=== PATIENT | female | born 1945 | race African-American/Black ===

== ENCOUNTER 2016-08-29 14:23 | Inpatient (IN) | payer OTHER, BC ==
--- NOTE | 2016-08-29 16:38 | PDOC ---
History of Present Illness - General Chief Complaint: Weakness Stated Complaint: PCP: SENT, weakness r/o anemia Time Seen by Provider: 08/29/16 15:59 - History of Present Illness Initial Comments: 08/29/16 16:37 Patient is a 70 year old female with a history of [place] x3 s/p pacemaker and stenting, anemia, DM, HTN, CHF, and an abdominal hernia who presents with generalized weakness. Patient reports a general feeling of extreme fatigue and weakness over the past 3-4 days. She was evaluated by her PCP Dr. Bhardwaj yesterday and earlier this morning he called her to advise her to be evaluated in the ED. She states that she has had problems with weakness in the past usually requiring transfusion. She states that otherwise she is experiencing lower left quadrant abdominal pain that was going to get evaluated with ultrasound tomorrow. She endorses some chest tightness, but denies any chest pain, fevers, chills, SOB, or dysuria. Past History - Past Medical History Allergies/Adverse Reactions: Allergies Allergy/AdvReac Type Severity Reaction Status Date / Time No Known Drug Allergies Allergy Verified 08/29/16 14:41 Home Medications: Ambulatory Orders Atorvastatin Ca [Lipitor] 80 mg PO HS 08/29/16 Carvedilol 25 mg PO BID 08/29/16 Citalopram Hydrobromide [Celexa -] 10 mg PO DAILY 08/29/16 Insulin (Novolog 70/30) [Novolog Mix 70/30 Flexpen -] 40 units SQ BIDAC Isosorbide Mononitrate [Isosorbide Mononitrate ER] 30 mg PO DAILY 08/29/16 Losartan Potassium 100 mg PO DAILY 08/29/16 Montelukast Na [Singulair -] 10 mg PO HS 08/29/16 Anemia: Yes Asthma: Yes Cardiac Disorders: Yes ([place] X 3, CAD, Pacemaker/Selene) CVA: No CHF: Yes (and pericardial effusion) Dementia: No Diabetes: Yes (BGM 221 @0815 03/23/15) GI Disorders: Yes (ULCER,ESOPHAGITIS,HIATAL HERNIA) Disorders: Yes HTN: Yes Hypercholesterolemia: Yes Liver Disease: No Suicide Attempt (Hx): No Thyroid Disease: No - Surgical History Abdominal Surgery: Yes (ABD HERNIA REPAIR) Cardiac Surgery: Yes (STENT X5 , PACEMAKER/defibrilator) Orthopedic Surgery: Yes (left ankle fracture 2 chronic mild left ankle edema, unchanged with current) - Psycho/Social/Smoking Cessation Hx Anxiety: No Suicidal Ideation: No Smoking Status: No Smoking History: Never smoked Have you smoked in the past 12 months: No Number of Cigarettes Smoked Daily: 0 Information on smoking cessation initiated: No Hx Alcohol Use: No Drug/Substance Use Hx: No Substance Use Type: None Hx Substance Use Treatment: No Review of Systems - Review of Systems Constitutional: Yes: Weakness. No: Chills, Fever HEENTM: No: Recent change in vision, Double Vision Respiratory: No: Cough, Shortness of Breath, Productive cough Cardiac (ROS): Yes: Other (Chest heaviness). No: Chest Pain, Lightheadedness, Palpitations ABD/GI: No: Constipated, Diarrhea, Nausea, Rectal Bleeding, Vomiting, Tarry Stools Integumentary: No: Rash Neurological: No: Headache, Numbness, Paresthesia, Tingling *Physical Exam - Vital Signs Last Vital Signs Temp Pulse Resp BP Pulse Ox 98.6 F 70 19 108/59 97 08/29/16 14:39 08/29/16 14:39 08/29/16 14:39 08/29/16 14:39 08/29/16 14:39 - Physical Exam Comments: 08/29/16 18:59 General Appearance: Nourished, Obese. No Acute Distress HEENT: No Pharyngeal Erythema, Tonsillar Exudate, Tonsillar Erythema Respiratory/Chest: Lungs Clear, Normal Breath Sounds. No Rales, Rhonchi, Wheezing Cardiovascular: Regular Rhythm, Regular Rate. No Murmur, Gallop/S3, Gallop/S4 Gastrointestinal/Abdominal: Normal Bowel Sounds, Soft, Tenderness to palpation in the RLQ, 6cm reducible ventral hernia noted on exam. No Guarding, Rebound Extremity: Normal Capillary Refill. No Coldness, Cyanosis Integumentary:Normal Color, Dry, Warm Neurologic: Fully Oriented, Alert, Normal Mood/Affect, Normal Response ED Treatment Course - LABORATORY CBC & Chemistry Diagram: 08/31/16 07:15 08/31/16 07:15 Medical Decision Making - Medical Decision Making 08/29/16 18:42 Patient is a 70 year old female with a complicated medical history of [place] x3 s/p stenting and pacemaker, anemia, DM, HTN, CHF and an umbilical hernia. Differential includes, anemia, infectious, thyroid, CHF exacerbation, or electrolyte imbalance. We will obtain a set of labs including a cbc, cmp, lactate, tsh, bnp to evaluate for anemia, thyroid dysfunction, electrolyte imbalances, CHF, infectious etiologies. We will get a UA to evaluate for UTI. We will obtain a CT abdomen with contrast to evaluate for diverticulitis given the patient's physical exam and history of LLQ pain. We will get a type and screen in the event that she requires transfusion. 08/29/16 19:14 Patient signed out to Dr. Johnson. 08/29/16 19:39 Contacted patient's primary care physician Dr. Bhardwaj. He reported that the labs he did at his office showed an acute on chronic kidney injury and a platelet count of 118. We agreed to add on a sed rate and CRP. He requested that we contact him again once all the labs result and ct read is in. *DC/Admit/Observation/Transfer Diagnosis at time of Disposition: Elevated brain natriuretic peptide (BNP) level Chronic kidney disease (CKD) Qualifiers: Chronic kidney disease stage: unspecified stage Qualified Code(s): N18.9 - Chronic kidney disease, unspecified Abdominal pain Qualifiers: Abdominal location: left lower quadrant Qualified Code(s): R10.32 - Left lower quadrant pain UTI (urinary tract infection) Qualifiers: Urinary tract infection type: acute cystitis Hematuria presence: with hematuria Qualified Code(s): N30.01 - Acute cystitis with hematuria - Attestations Physician Attestion: 08/31/16 19:55 I, Dr. Marco A Todd, attest that this document has been prepared under my direction and personally reviewed by me in its entirety. I further attest, that it accurately reflects all work, treatment, procedures and medical decision -making performed by me.
[2016-08-29 18:32] LABS: BASOPHIL 0.4 % (0-2.0); EOSINOPHIL 2.4 % (0-4.5); MCH 26.6 pg (25.7-33.7); MCHC 32.6 g/dl (32.0-36.0); MEAN CELL VOLUME 81.5 fl (80-96); MEAN PLT VOLUME 11.3 fl (7.5-11.1); NEUTROPHILS 59.6 % (42.8-82.8); PLATELET COUNT 100 K/MM3 (134-434); RDW 14.1 % (11.6-15.6); WHITE BLOOD COUNT 9.3 K/mm3 (4.0-10.0)
[2016-08-29 18:33] LABS: URINE APPEARANCE SLCLOUDY; URINE BILIRUBIN NEGATIVE (NEGATIVE); URINE COLOR YELLOW; URINE GLUCOSE (UA) 1+ (NEGATIVE); URINE KETONE NEGATIVE (NEGATIVE); URINE LEUK ESTERASE NEGATIVE (NEGATIVE); URINE NITRITE NEGATIVE (NEGATIVE); URINE UROBILINOGEN NEGATIVE E.U./dl (0.2-1.0)
[2016-08-29 18:34] LABS: URINE BLOOD 1+ (NEGATIVE); URINE PROTEIN 3+ (NEGATIVE)
[2016-08-29 18:35] LABS: URINE BACTERIA MODERATE /hpf (NONE SEEN); URINE HYALINE CAST 5 /lpf; URINE MUCUS RARE; URINE RBC 44 /hpf (0-3); URINE WBC 11 /hpf (3-5)
--- NOTE | 2016-08-29 18:44 | PDOC ---
Attending Attestation - Resident Resident Name: PeytonMarco A - ED Attending Attestation I have performed the following: I have examined & evaluated the patient, The case was reviewed & discussed with the resident, I agree w/resident's findings & plan, Exceptions are as noted - HPI HPI: 08/29/16 18:38 70-year-old female with multiple medical problems including CHF, recurring anemia, depression presents with generalized weakness has been worsening for about 10 days. No specific symptoms, complaining of some intermittent chest heaviness but no new dyspnea on exertion, no cough, no GI complaints, no fevers or chills, no urinary complaints. Patient was seen by Dr. Bhardwaj yesterday for routine visit, labs are reportedly near baseline but she was sent to the hospital for further evaluation. - Physicial Exam PE: 08/29/16 18:41 vital signs normal. Well-appearing, no acute distress Spontaneously reducing ventral hernia, tenderness with guarding in the lower left quadrant, no CVA tenderness Left chest pacemaker, otherwise regular rhythm with clear lungs - Medical Decision Making 08/29/16 18:42 Patient seen and evaluated with the resident. I agree with the overall evaluation, assessment, and management with the following summary of visit: 70-year-old female with history of CHF, anemia presents with progressive generalized weakness for 10 days in the setting of some new or chest heaviness and left lower quadrant pain. Question symptomatic anemia, question acute on chronic CHF, question infectious versus UTI or diverticulitis. Labs including type and screen, urinalysis EKG shows baseline T wave inversions in the lateral leads, no acute ST changes. Unchanged from prior EKG in December 2015. CT of the abdomen and pelvis to assess left lower quadrant pain Discuss labs and disposition with Dr. Bhardwaj
[2016-08-29 19:03] LABS: ACTIVATED PTT 32.8 SECONDS (26.9-34.4)
[2016-08-29 19:27] LABS: ANION GAP 8 (8-16); CALCIUM 8.6 mg/dL (8.5-10.1); CO2 27 mmol/L (21-32); CREATININE 2.1 mg/dL (0.55-1.02); GLUCOSE,RANDOM 73 mg/dL (74-106); SGOT/AST 19 U/L (15-37); SGPT/ALT 21 U/L (12-78)
[2016-08-29 19:37] LABS: ALK PHOS 126 U/L (45-117); BILIRUBIN,TOTAL 0.3 mg/dL (0.2-1.0); THYROID STIMULATING HORMONE 1.28 uIU/ml (0.358-3.74); TOT PROT 6.2 g/dl (6.4-8.2); TROPONIN I 0.05 ng/ml (0.00-0.05)
--- NOTE | 2016-08-29 19:54 | PDOC ---
*Physical Exam - Vital Signs Last Vital Signs Temp Pulse Resp BP Pulse Ox 98.6 F 70 19 108/59 97 08/29/16 14:39 08/29/16 14:39 08/29/16 14:39 08/29/16 14:39 08/29/16 14:39 ED Treatment Course - LABORATORY CBC & Chemistry Diagram: 08/31/16 07:15 08/29/16 18:20 - ADDITIONAL ORDERS Additional order review: Laboratory Results 08/29/16 18:20 Urine Color Yellow Urine Appearance Slcloudy Urine pH 5.0 Urine Protein 3+ H Urine Glucose (UA) 1+ H Urine Ketones Negative Urine Blood 1+ H Urine Nitrite Negative Urine Bilirubin Negative Urine Urobilinogen Negative Ur Leukocyte Esterase Negative Urine RBC 44 Urine WBC 11 Ur Epithelial Cells Moderate Urine Bacteria Moderate Hyaline Casts 5 Urine Mucus Rare 08/29/16 18:20 RBC 4.42 MCV 81.5 MCHC 32.6 RDW 14.1 MPV 11.3 H Neutrophils % 59.6 Lymphocytes % 31.6 Monocytes % 6.0 Eosinophils % 2.4 Basophils % 0.4 - RADIOLOGY Radiograph Interpretation: 08/29/16 21:40 CT scan of the abdomen pelvis following oral contrast administration only Read by: Any Millard MD Impression: No significant interval change. No CT evidence of an acute process in the abdomen and pelvis. Correlate currently to determine further evaluation and follow-up. Progress Note - Progress Note Progress Note: Received patient in stable condition from Dr. Todd. Patient has a history of DM, HTN, MIx3 w/stenting, CHF, anemia requiring transfusion, KAYLYNN/CKD Patient presented to the ED at the advice of Dr. Bhardwaj complaining of LLQ abdominal pain and generalized weakness Labs and CT ordered and pending. Follow up with labs and CT and call Dr. Bhardwaj with results. Medical Decision Making - Medical Decision Making 08/29/16 20:25 Spoke with Radiology regarding the CT order due to patient CR/BUN (2.1/39). Patient had already finished PO contrast so the order was changed to w/o contrast, PO contrast ok. 08/29/16 20:48 Troponin(-), CRP(-), ESR baseline elevated 08/29/16 22:46 CT showed no acute pathology Labs significant for: Elevated ESR (51), thrombocytopenia (100), coagulation panel wnl, baseline elevated bun/cr (39/2.1), BNP elevated above baseline (9532) , and 44 RBC, 11 WBC, protein and glucose in the urine. Results discussed with Dr. Jara who accepted [facility] and requested consults from GI and surgery. Discussed plan with patient who was in agreement. She does not have a current time recorder and approved of Dr. Mac Patient was admitted, consults were ordered and Rocephin 1g IV was given for presumed UTI pending culture results. *DC/Admit/Observation/Transfer Diagnosis at time of Disposition: Elevated brain natriuretic peptide (BNP) level Chronic kidney disease (CKD) Qualifiers: Chronic kidney disease stage: unspecified stage Qualified Code(s): N18.9 - Chronic kidney disease, unspecified Abdominal pain Qualifiers: Abdominal location: left lower quadrant Qualified Code(s): R10.32 - Left lower quadrant pain UTI (urinary tract infection) Qualifiers: Urinary tract infection type: acute cystitis Hematuria presence: with hematuria Qualified Code(s): N30.01 - Acute cystitis with hematuria - Discharge Dispostion Admit: Yes - Referrals - Attestations Physician Attestion: 08/31/16 08:51 I, Dr. Nilay Johnson, attest that this document has been prepared under my direction and personally reviewed by me in its entirety. I further attest, that it accurately reflects all work, treatment, procedures and medical decision -making performed by me.
[2016-08-29] MEDS ORDERED: cefTRIAXone SODIUM 1 GM VIAL IM ONE (22:13)
[2016-08-29] MEDS ORDERED: CEFTRIAXONE 50 ML ONE (22:28)
[2016-08-29] MEDS ORDERED: CEFTRIAXONE 1 GM in DEXTROSE 5%-WATER - 50 ML IVPB ONE (22:30)
[2016-08-29] MEDS ORDERED: ACETAMINOPHEN 325 MG TABLET (FP) PO PRN (23:21)
[2016-08-30] MEDS: INSULIN SLIDING SCALE (NOVOLOG) 1 VIAL SQ SCH ×4 (06:20→21:44)
--- NOTE | 2016-08-30 08:36 | CON.CARD ---
Consult Consult Specialty:: Cardiology for Dr. Jones Referred by:: Dr. Bhardwaj Reason for Consultation:: CHF - History of Present Illness Chief Complaint: Fatigue, abdominal discomfort History of Present Illness: 70 year old woman with a history of HTN, HLD, DMII, obesity, CAD with reported [place] x 3, multiple prior PCI with stents, Ischemic cardiomyopathy with severe LV systolic dysfunction in the past, chronic systolic CHF, s/p ICD, recurrent anemia, depression, admitted with 1.5 week h/o fatigue and few day h/o LLQ discomfort. Pt. was seen and examined this am in nad. States that she is feeling well and would like to go home. Admits to chronic intermittent mild L axilla discomfort. She states she was evaluated by Dr. Jones 2 weeks ago including PPM check and she was told she was doing well. She denies any sob or hart. Denies any edema. No pnd, orthopnea. No lightheadedness or dizziness. No syncope or near syncope. Of note pt has a history of significant depression for which she is under the care of a psychiatrist and psychologist. - History Source History Provided By: Patient, Medical Record Limitations to Obtaining History: No Limitations - Past Medical History Cardio/Vascular: Yes: CAD, CHF, HTN, Hyperlipdemia (CAD,CARDIOMYOPATHY(ISCHEMIC) ), [place] Pulmonary: Yes: Asthma Renal/: Yes: Renal Inusuff Psych: Yes: Anxiety, Depression Musculoskeletal: Yes: Chronic low back pain - Past Surgical History Past Surgical History: Yes: AICD, Colonoscopy, Hernia Repair, Hysterectomy, Stent - Alcohol/Substance Use Hx Alcohol Use: No - Smoking History Smoking history: Never smoked Have you smoked in the past 12 months: No Aproximately how many cigarettes per day: 0 - Social History Usual Living Arrangement: Alone ADL: Independent Home Medications - Allergies Allergies/Adverse Reactions: Allergies Allergy/AdvReac Type Severity Reaction Status Date / Time No Known Drug Allergies Allergy Verified 08/29/16 14:41 - Home Medications Home Medications: Ambulatory Orders Atorvastatin Ca [Lipitor] 80 mg PO HS 08/29/16 Carvedilol 25 mg PO BID 08/29/16 Citalopram Hydrobromide [Celexa -] 10 mg PO DAILY 08/29/16 Insulin (Novolog 70/30) [Novolog Mix 70/30 Flexpen -] 40 units SQ BIDAC Isosorbide Mononitrate [Isosorbide Mononitrate ER] 30 mg PO DAILY 08/29/16 Losartan Potassium 100 mg PO DAILY 08/29/16 Montelukast Na [Singulair -] 10 mg PO HS 08/29/16 Family Disease History - Family Disease History Family Disease History: Heart Disease: Father ([place]) Review of Systems - Review of Systems Constitutional: reports: Lethargy, Malaise, Weakness. denies: No Symptoms, Chills, Diaphoresis, Fever, Loss of Appetite, Night Sweats, Unintentional Wgt. Loss, Other Eyes: denies: No Symptoms, Blind Spots, Blurred Vision, Double Vision, Eye Pain , Floaters, Photophobia, Recent Change in Vision, Other HENT: denies: No Symptoms, Difficult Swallowing, Ear Discharge, Ear Pain, Epistaxis, Gingival Bleeding, Hearing Loss, Mouth Swelling, Nasal Congestion, Ocular Prosthesis, Throat Pain, Toothache, Ringing in Ears, Other Neck: denies: No Symptoms, Decreased ROM, Lumps, Pain on Movement, Stiffness, Swollen Glands, Tenderness, Other Cardiovascular: denies: No Symptoms, Chest Pain, Edema, Palpitations, Shortness of Breath, Other Respiratory: denies: No Symptoms, Cough, Exercise Intolerance, Hemoptysis, Orthopnea, PND, Snoring, SOB, SOB on Exertion, Wheezing, Other Gastrointestinal: reports: Abdominal Pain. denies: No Symptoms, Bloating, Constipation, Diarrhea, Dysphagia, Indigestion, Melena, Nausea, Rectal Bleeding , Vomiting, Vomiting Blood, Other Genitourinary: denies: No Symptoms, Burning, Discharge, Dysuria, Flank Pain, Frequency, Hematuria, Incontinence, Lesions, Menses, Pain, Testicular Mass, Testicular Pain, Testicular Swelling, Urgency, Vaginal Bleeding, Other Breasts: denies: No Symptoms Reported, See HPI, Breast Implants, Discharge from Nipple, Lumps, Pain, Skin Changes, Other Musculoskeletal: reports: Muscle Weakness. denies: No Symptoms, Back Pain, Crepitus, Decreased ROM, Extremity Pain, Joint Pain, Joint Swelling, Muscle Pain , Muscle Cramps, Other Integumentary: denies: No Symptoms, Blister, Bruising, Change in Color, Eczema, Erythema, Incision, Lesions, Lump, Pallor, Pruritis, Rash, Wound, Other Neurological: denies: No Symptoms, Change in LOC, Change in Speech, Confusion, Dizziness, Headache, Incoordination, Numbness, Parasthesia, Pre-Existing Deficit , Seizure, Syncope, Tremors, Unsteady Gait, Weakness, Other Endocrine: denies: No Symptoms, Excessive Sweating, Flushing, Increased Hunger, Increased Thirst, Intolerance to Cold, Intolerance to Heat, Unexplained Weight Gain, Unexplained Weight Loss, Other Hematology/Lymphatic: denies: No Symptoms, Easily Bruised, Excessive Bleeding, Swollen Glands, Other Psychiatric: reports: Depression. denies: No Symptoms, Altered Sleep Pattern, Anxiety, Hallucinations, Panic, Paranoia, Suicidal, Other - Risk Factors Known Risk Factors: Yes: Diabetes Mellitus, Hypercholesterolemia, Hypertension, Prior AL /Emb Stroke Vital Signs: Vital Signs Temperature 98.4 F 08/30/16 06:11 Pulse Rate 82 08/30/16 06:11 Respiratory Rate 20 08/30/16 06:11 Blood Pressure 150/76 08/30/16 06:11 O2 Sat by Pulse Oximetry (%) 98 08/29/16 22:51 Constitutional: Yes: No Distress, Calm, Obese Eyes: Yes: WNL, Conjunctiva Clear, EOM Intact, PERRL HENT: Yes: WNL, Atraumatic, Normocephalic Neck: Yes: WNL, Supple, Trachea Midline Respiratory: Yes: WNL, Regular, CTA Bilaterally. No: Rales, Rhonchi, SOB, Wheezes Gastrointestinal: Yes: WNL, Normal Bowel Sounds, Soft. No: Distention, Tenderness Renal/: Yes: WNL Cardiovascular: Yes: Regular Rate and Rhythm. No: Bradycardia, Tachycardia, Pulse Irregular, Gallop, Rub, Varicosities JVD: No Carotid Bruit: No PMI: Non-Displaced Heart Sounds: Yes: S1, S2. No: Split S2, S3, S4, Clicks, Gallop, Rub, Bruit Murmur: Yes: Systolic Murmur. No: Diastolic Murmur Musculoskeletal: Yes: WNL Extremities: Yes: WNL Edema: No Peripheral Pulses WNL: Yes Peripheral Pulses: 2+ Left Doralis Pedis, 2+ Right Dorsalis Pedis Integumentary: Yes: WNL Neurological: Yes: Alert, Oriented Psychiatric: Yes: Alert, Oriented - Other Data Labs, Other Data: INR, PTT INR 1.00 (0.82-1.09) 08/29/16 18:20 ekg-NSR 66bpm, T inversions V4, V5, V6, I, aVL, II, aVF, LAE, prolonged QTc, no sig change from prior ekg 12/2015 Echo: Report Reviewed Prior Cardiac Procedures: PTCA with Stent Imaging - Results Chest X-ray: Report Reviewed, Image Reviewed EKG: Report Reviewed, Image Reviewed Other: Report Reviewed, Image Reviewed Assessment/Plan 70 year old woman with a history of HTN, HLD, DMII, obesity, CAD with reported [place] x 3, multiple prior PCI with stents, Ischemic cardiomyopathy with severe LV systolic dysfunction in the past, chronic systolic CHF, s/p ICD, recurrent anemia, depression, admitted with 1.5 week h/o fatigue and few day h/o LLQ discomfort. Notes chronic intermittent mild L axilla discomfort for which she has been evaluated in the past including [address] Jones. denies other chest pain. Of note pt has a history of significant depression for which she is under the care of a psychiatrist and psychologist. Fatigue-unclear etiology, suspect due to depression -clinically does not appear to be in decompensated CHF (chest clear, no edema) -further work up as per PMD CHF-ischemic cardiomyopathy with chronic systolic CHF, h/o severe LV systolic dysfunction s/p ICD, last echo here 07/2015 showed overall normal EF with mild inferolateral hypokinesis, unknown if more recent echo done in outpatient setting -clinically euvolemic with clear lungs and no edema and no reported SOB/hart, despite elevated BNP -cardiac enzymes wnl -pt states she is not on Lasix at home -received 1 dose of IV Lasix today, would hold further IV diuresis for now in light of clinical euvolemia and elevated bun/creat -check Cxr to confirm no sig pulm edema -cont home CHF meds Coreg, Losartan, Imdur -pt reports recent ICD interrogation that was normal [address] Jones CAD-history as above -no chest pain, aside from chronic atypical chest pain -no sob -cardiac enzymes wnl -cont coreg, losartan, imdur, lipitor -clarify why ASA not listed on home meds, and start ASA 81mg daily if no contraindication HTN-well controlled on admission, uncontrolled this am prior to meds -repeat BP after am meds Abdominal pain-LLQ -CT a/p read as no acute process -further work up as needed as per PMD
[2016-08-30] MEDS: INSULIN (NOVOLOG MIX 70/30) 100 UNITS/ML MDV SQ SCH ×2 (09:41→18:16)
[2016-08-30] MEDS: LOSARTAN POTASSIUM 50 MG TABLET (FP) PO SCH (09:42)
[2016-08-30] MEDS: ISOSORBIDE MONONITRATE 30 MG TAB.SR.24H (FP) PO SCH (09:42)
[2016-08-30] MEDS: CITALOPRAM HYDROBROMIDE 10 MG TABLET (FP) PO SCH (09:43)
[2016-08-30] MEDS: CARVEDILOL 25 MG TABLET (FP) PO SCH ×2 (09:43→21:40)
[2016-08-30] MEDS: PANTOPRAZOLE SODIUM 100 ML IVPB SCH (09:43)
[2016-08-30] MEDS: FUROSEMIDE 40 MG/4 ML INJECTABLE VIAL IVPUSH SCH ×3 (10:07→13:13)
--- NOTE | 2016-08-30 11:27 | CON.NEP ---
Consult Consult Specialty:: Nephrology Referred by:: Dr Bhardwaj Reason for Consultation:: ckd, nephrolithiasis - History of Present Illness Chief Complaint: abdominal pain History of Present Illness: Patient is a 70 year old female with a history of [place] x3 s/p pacemaker and stenting, anemia, DM, HTN, CHF, and an abdominal hernia who presents with generalized weakness. She complains to me maiinly of left lower quadrant abdominal pain that has been around for two weeks but worsened yesterday and came to ED. - Past Medical History Cardio/Vascular: Yes: CAD, CHF, HTN, Hyperlipdemia (CAD,CARDIOMYOPATHY(ISCHEMIC) ), [place] Pulmonary: Yes: Asthma Renal/: Yes: Renal Inusuff Psych: Yes: Anxiety, Depression Musculoskeletal: Yes: Chronic low back pain - Past Surgical History Past Surgical History: Yes: AICD, Colonoscopy, Hernia Repair, Hysterectomy, Stent - Alcohol/Substance Use Hx Alcohol Use: No - Smoking History Smoking history: Never smoked Have you smoked in the past 12 months: No Aproximately how many cigarettes per day: 0 - Social History Usual Living Arrangement: Alone ADL: Independent Home Medications - Allergies Allergies/Adverse Reactions: Allergies Allergy/AdvReac Type Severity Reaction Status Date / Time No Known Drug Allergies Allergy Verified 08/29/16 14:41 - Home Medications Home Medications: Ambulatory Orders Atorvastatin Ca [Lipitor] 80 mg PO HS 08/29/16 Carvedilol 25 mg PO BID 08/29/16 Citalopram Hydrobromide [Celexa -] 10 mg PO DAILY 08/29/16 Insulin (Novolog 70/30) [Novolog Mix 70/30 Flexpen -] 40 units SQ BIDAC Isosorbide Mononitrate [Isosorbide Mononitrate ER] 30 mg PO DAILY 08/29/16 Losartan Potassium 100 mg PO DAILY 08/29/16 Montelukast Na [Singulair -] 10 mg PO HS 08/29/16 Family Disease History - Family Disease History Family Disease History: Heart Disease: Father ([place]) Review of Systems - Review of Systems Constitutional: reports: Lethargy Eyes: reports: No Symptoms HENT: reports: No Symptoms Neck: reports: No Symptoms Cardiovascular: reports: No Symptoms Respiratory: reports: No Symptoms Gastrointestinal: reports: Abdominal Pain Genitourinary: reports: No Symptoms Breasts: reports: No Symptoms Reported Musculoskeletal: reports: No Symptoms Integumentary: reports: No Symptoms Neurological: reports: No Symptoms Endocrine: reports: No Symptoms Hematology/Lymphatic: reports: No Symptoms Psychiatric: reports: No Symptoms Nephrology Consult - Height Height: 5 ft 6 in - Weight Weight: 197 lb 0.3 oz - BMI Body Mass Index (BMI): 31.8 - Lab Results Anion Gap: Anion Gap Anion Gap 8 (8-16) 08/29/16 18:20 - Imaging Cat Scan: Report Reviewed (no evidence of kidney stones) - Physical Examination Vital Signs: Vital Signs Temperature 98.4 F 08/30/16 09:35 Pulse Rate 83 08/30/16 09:35 Respiratory Rate 20 08/30/16 09:35 Blood Pressure 180/100 08/30/16 09:35 O2 Sat by Pulse Oximetry (%) 98 08/29/16 22:51 Constitutional: Yes: Well Nourished, No Distress, Calm Eyes: Yes: Conjunctiva Clear HENT: Yes: Atraumatic, Normocephalic Neck: Yes: Supple, Trachea Midline Cardiovascular: Yes: Regular Rate and Rhythm Respiratory: Yes: Regular, CTA Bilaterally Gastrointestinal: Yes: Normal Bowel Sounds, Soft, Tenderness Renal/: Yes: WNL Musculoskeletal: Yes: Back Pain Extremities: Yes: Amputation Edema: No Wound/Incision: Yes: Well Approximated Neurological: Yes: Alert, Oriented Psychiatric: Yes: Alert, Oriented Assessment/Plan IMPRESSION CKD with slight worsening Probable diabetic nephropathy abdominal pain may be due to UTI has had intermittent hematuria PLAN would treat uti obtain cxr if hematuria is persistent despite antibiotics would ask urology to evaluate monitor renal function MV
[2016-08-30 11:28] VITALS: BMI 31.8
--- NOTE | 2016-08-30 11:41 | HP ---
Admitting History and Physical - Primary Care Physician PCP: Adeel Bhardwaj - Admission Chief Complaint: ABD PAIN/ACUTE CHF/WEAKNESS History of Present Illness: PATIENT WITH DM/HTN/ANEMIA/DIVERTICULOSIS/ANXIETY/DEPRESSION/ACUTE ON CHRONIC CHF/ARF PRESENTS WITH ABD PAIN GENERALIZED WEAKNESS History Source: Patient, Medical Record - Past Medical History Cardiovascular: Yes: CAD, CHF, HTN, Hyperlipdemia (CAD,CARDIOMYOPATHY(ISCHEMIC)) , [place] Pulmonary: Yes: Asthma Renal/: Yes: Renal Inusuff Heme/Onc: Yes: Anemia Psych: Yes: Anxiety, Depression Musculoskeletal: Yes: Chronic low back pain - Past Surgical History Past Surgical History: Yes: AICD, Colonoscopy, Hernia Repair, Hysterectomy, Stent - Smoking History Smoking history: Never smoked Have you smoked in the past 12 months: No Aproximately how many cigarettes per day: 0 - Alcohol/Substance Use Hx Alcohol Use: No - Social History ADL: Independent Home Medications - Allergies Allergies/Adverse Reactions: Allergies Allergy/AdvReac Type Severity Reaction Status Date / Time No Known Drug Allergies Allergy Verified 08/29/16 14:41 - Home Medications Home Medications: Ambulatory Orders Atorvastatin Ca [Lipitor] 80 mg PO HS 08/29/16 Carvedilol 25 mg PO BID 08/29/16 Citalopram Hydrobromide [Celexa -] 10 mg PO DAILY 08/29/16 Insulin (Novolog 70/30) [Novolog Mix 70/30 Flexpen -] 40 units SQ BIDAC Isosorbide Mononitrate [Isosorbide Mononitrate ER] 30 mg PO DAILY 08/29/16 Losartan Potassium 100 mg PO DAILY 08/29/16 Montelukast Na [Singulair -] 10 mg PO HS 08/29/16 Family Disease History - Family Disease History Family Disease History: Heart Disease: Father ([place]) Review of Systems - Review of Systems Constitutional: reports: Weakness Eyes: reports: No Symptoms HENT: reports: No Symptoms Neck: reports: No Symptoms Cardiovascular: reports: Shortness of Breath Respiratory: reports: SOB Gastrointestinal: reports: Abdominal Pain Genitourinary: reports: No Symptoms Musculoskeletal: reports: Muscle Weakness Integumentary: reports: No Symptoms Neurological: reports: No Symptoms Endocrine: reports: No Symptoms Hematology/Lymphatic: reports: No Symptoms Psychiatric: reports: Altered Sleep Pattern, Anxiety, Depression Physical Examination Vital Signs: Vital Signs Temperature 98.4 F 08/30/16 09:35 Pulse Rate 83 08/30/16 09:35 Respiratory Rate 20 08/30/16 09:35 Blood Pressure 180/100 08/30/16 09:35 O2 Sat by Pulse Oximetry (%) 98 08/29/16 22:51 Constitutional: Yes: Mild Distress Eyes: Yes: WNL HENT: Yes: WNL Neck: Yes: WNL Cardiovascular: Yes: WNL Respiratory: Yes: WNL Gastrointestinal: Yes: Distention, Palpable Mass, Tenderness, Other (HERNIA LOWER QUAD) Renal/: Yes: WNL Musculoskeletal: Yes: Muscle Weakness Extremities: Yes: WNL Edema: No Peripheral Pulses WNL: Yes Integumentary: Yes: WNL Wound/Incision: Yes: Clean/Dry Neurological: Yes: WNL ...Motor Strength: WNL Psychiatric: Yes: WNL Assessment/Plan ACUTE CHF CHECK ECHO FOR FUNCTION EF% CHEST XRAY NOW QUESTION OF NEPHROLITHIASIS? HEMATUREA WILL CHECK 24 HOUR URINE RENAL EVAL CARDIO EVAL LASIX IV PAIN CONTROL HERNIA ABD GI AND SX EVAL ESR ELEVATED? DIVERTICULOSIS ITIS?
--- NOTE | 2016-08-30 13:26 | CON.GI ---
Consult Consult Specialty:: Gastroenterology Referred by:: Dr. Bhardwaj Reason for Consultation:: Abdominal pain - History of Present Illness Chief Complaint: LLQ and periumbilical pain History of Present Illness: 70F is admitted for evaluation of a dull aching LLQ pain as well as a more chronic periumbilical pain at the site of her previous umbilical hernia repair with mesh. The pain is not related to eating or defecation. She denies N/V, acid reflux. She moves her bowels regularly. She has had several EGDs and a colonoscopy with Dr Alvarenga and Dr Emmie Vines. She tells me that colonoscopy was normal 3 years ago. EGDs in [facility] reveal a hiatal hernia and her last one in 03/10 revealed retained food. She is diabetic. Sonograms have failed to reveal gallstones but the last revealed a fatty liver. Yesterday's CT reveals no acute pathology and no renal stones. - History Source History Provided By: Patient Limitations to Obtaining History: No Limitations - Past Medical History Cardio/Vascular: Yes: CAD (5 coronarty stents), CHF, HTN, Hyperlipdemia (CAD, CARDIOMYOPATHY(ISCHEMIC)), [place], Other (has a defibrillator) Pulmonary: Yes: Asthma Gastrointestinal: Yes: Hiatal Hernia Hepatobiliary: Yes: Other (fatty liver) Renal/: Yes: Renal Inusuff Reproductive: Yes: Fibroids (s/p PALMA), Postmenopausal Psych: Yes: Anxiety, Depression Musculoskeletal: Yes: Chronic low back pain Endocrine: Yes: Diabetes Mellitus - Past Surgical History Past Surgical History: Yes: AICD, Breast Biopsy (benign right breast lesion excision), Cataract Removal (bilateral and retinal laser surgery), Colonoscopy, Hernia Repair, Hysterectomy (PALMA, ovaries are intact), Stent (5 coronary stents) - Alcohol/Substance Use Hx Alcohol Use: No - Smoking History Smoking history: Never smoked Have you smoked in the past 12 months: No Aproximately how many cigarettes per day: 0 - Social History Usual Living Arrangement: Alone ADL: Independent Occupation: retired teacher Place of : [facility] History of Recent Travel: No Home Medications - Allergies Allergies/Adverse Reactions: Allergies Allergy/AdvReac Type Severity Reaction Status Date / Time No Known Drug Allergies Allergy Verified 08/29/16 14:41 - Home Medications Home Medications: Ambulatory Orders Atorvastatin Ca [Lipitor] 80 mg PO HS 08/29/16 Carvedilol 25 mg PO BID 08/29/16 Citalopram Hydrobromide [Celexa -] 10 mg PO DAILY 08/29/16 Insulin (Novolog 70/30) [Novolog Mix 70/30 Flexpen -] 40 units SQ BIDAC Isosorbide Mononitrate [Isosorbide Mononitrate ER] 30 mg PO DAILY 08/29/16 Losartan Potassium 100 mg PO DAILY 08/29/16 Montelukast Na [Singulair -] 10 mg PO HS 08/29/16 Family Disease History - Family Disease History Family Disease History: Diabetes: Mother, Heart Disease: Father ( [place] age 56) , Mother, [place]: Sister ( uterine cancer) Review of Systems - Review of Systems Constitutional: reports: No Symptoms Eyes: reports: No Symptoms HENT: reports: No Symptoms Neck: reports: No Symptoms Cardiovascular: reports: No Symptoms Respiratory: reports: No Symptoms Gastrointestinal: reports: Abdominal Pain Genitourinary: reports: No Symptoms Musculoskeletal: reports: Back Pain, Joint Pain Physical Exam-GI Vital Signs: Vital Signs Temperature 98.4 F 08/30/16 09:35 Pulse Rate 76 08/30/16 13:09 Respiratory Rate 20 08/30/16 13:09 Blood Pressure 148/68 08/30/16 13:09 O2 Sat by Pulse Oximetry (%) 98 08/29/16 22:51 CBC,CMP WBC 9.3 K/mm3 (4.0-10.0) 08/29/16 18:20 RBC 4.42 M/mm3 (3.60-5.2) 08/29/16 18:20 Hgb 11.7 GM/dL (10.7-15.3) 08/29/16 18:20 Hct 36.0 % (32.4-45.2) 08/29/16 18:20 MCV 81.5 fl (80-96) 08/29/16 18:20 MCH 26.6 pg (25.7-33.7) 08/29/16 18:20 MCHC 32.6 g/dl (32.0-36.0) 08/29/16 18:20 RDW 14.1 % (11.6-15.6) 08/29/16 18:20 Plt Count 100 K/MM3 (134-434) L 08/29/16 18:20 MPV 11.3 fl (7.5-11.1) H 08/29/16 18:20 Neutrophils % 59.6 % (42.8-82.8) 08/29/16 18:20 Lymphocytes % 31.6 % (8-40) 08/29/16 18:20 Monocytes % 6.0 % (3.8-10.2) 08/29/16 18:20 Eosinophils % 2.4 % (0-4.5) 08/29/16 18:20 Basophils % 0.4 % (0-2.0) 08/29/16 18:20 ESR 51 mm/hr (0-30) H 08/29/16 18:20 Sodium 141 mmol/L (136-145) 08/29/16 18:20 Potassium 4.1 mmol/L (3.5-5.1) 08/29/16 18:20 Chloride 106 mmol/L (98-107) 08/29/16 18:20 Carbon Dioxide 27 mmol/L (21-32) 08/29/16 18:20 Anion Gap 8 (8-16) 08/29/16 18:20 BUN 39 mg/dL (7-18) H D 08/29/16 18:20 Creatinine 2.1 mg/dL (0.55-1.02) H 08/29/16 18:20 Creat Clearance w eGFR 23.28 (>60) 08/29/16 18:20 POC Glucometer 195 UNITS (()) 08/30/16 12:10 Random Glucose 73 mg/dL (74-106) L D 08/29/16 18:20 Lactic Acid 1.8 mmol/L (0.4-2.0) 08/29/16 18:20 Calcium 8.6 mg/dL (8.5-10.1) 08/29/16 18:20 Total Bilirubin 0.3 mg/dL (0.2-1.0) D 08/29/16 18:20 AST 19 U/L (15-37) D 08/29/16 18:20 ALT 21 U/L (12-78) 08/29/16 18:20 Alkaline Phosphatase 126 U/L (45-117) H 08/29/16 18:20 Creatine Kinase 149 IU/L (26-192) 08/29/16 18:20 Troponin I 0.05 ng/ml (0.00-0.05) 08/29/16 18:20 C-Reactive Protein < 0.3 MG/DL (0.00-0.3) 08/29/16 18:20 B-Natriuretic Peptide 9532.97 pg/ml (5-125) H 08/29/16 18:20 Total Protein 6.2 g/dl (6.4-8.2) L 08/29/16 18:20 Albumin 3.0 g/dl (3.4-5.0) L 08/29/16 18:20 TSH 1.28 uIU/ml (0.358-3.74) D 08/29/16 18:20 Current Medications Generic Name Dose Route Start Last Admin Trade Name Freq PRN Reason Stop Dose Admin Acetaminophen 650 mg 08/29/16 23:21 Tylenol - PO Q6H PRN FEVER OR PAIN Atorvastatin Calcium 80 mg 08/30/16 22:00 Lipitor - PO HS JOS Carvedilol 25 mg 08/30/16 10:00 08/30/16 09:43 Coreg - PO 25 mg BID JOS Administration Citalopram Hydrobromide 10 mg 08/30/16 10:00 08/30/16 09:43 Celexa - PO 10 mg DAILY JOS Administration Pantoprazole Sodium 100 mls @ 200 mls/hr 08/30/16 10:00 08/30/16 09:43 Protonix 40mg Ivpb (Pre-Docked) IVPB 200 mls/hr DAILY JOS Administration Insulin Aspart 1 vial 08/30/16 07:00 08/30/16 12:11 Novolog Vial Sliding Scale - SQ 2 units ACHS JOS Administration Protocol Insulin Aspart 40 units 08/30/16 07:00 08/30/16 09:41 Novolog Mix 70/30 Vial SQ 40 units BIDAC JOS Administration Isosorbide Mononitrate 30 mg 08/30/16 10:00 08/30/16 09:42 Imdur - PO 30 mg DAILY JOS Administration Losartan Potassium 100 mg 08/30/16 10:00 08/30/16 09:42 Cozaar - PO 100 mg DAILY JOS Administration Montelukast Sodium 10 mg 08/30/16 22:00 Singulair - PO HS JOS Constitutional: Yes: Calm Eyes: Yes: Conjunctiva Clear HENT: Yes: Normocephalic Neck: Yes: Supple Cardiovascular: Yes: Regular Rate and Rhythm, Other (left subclavian AIVR) Respiratory: Yes: CTA Bilaterally Gastrointestinal Inspection: Yes: Distention, Hernia (umbilical incisional hernia is nontender), Scars (vertical umbilical incisional hernia is nontender, well healed Pfannensteil incision) ...Auscultate: Yes: Normoactive Bowel Sounds ...Palpate: Yes: Soft, Tenderness (mild tenderness over left hip socket) ...Rectal Exam: Yes: Deferred (patient declined) Edema: No Labs: INR, PTT INR 1.00 (0.82-1.09) 08/29/16 18:20 Imaging - Results Cat Scan: Report Reviewed (Cynthia Ocampo Name: SARAH ESTEVEZ DEPARTMENT OF RADIOLOGY Phys: Edmar Sweet MD : 1945 Age: 70 Sex: F [facility] Acct: [id number] Loc: [address] Exam Date: 08/29/16 Status: [place] [address] Unit Number: [id number] EXAM#: TYPE/EXAM : RESULT: [id number] CT/ABDOMEN PELVIS CT W/O CONTR Left lower quadrant pain CT scan of the abdomen pelvis following oral contrast administration only Coronal and sagittal reformatted images were obtained Compared to prior examination dated 01/22/2016 Included lower lung appears unremarkable. There is [id number] cardiomegaly and a trace of pericardial effusion Partially distended stomach without gross wall thickening Evaluation of the liver, spleen, gallbladder, pancreas and both adrenal glands appear unremarkable. Significant stranding of the perinephric fat, bilaterally again noted likely chronic. There is no evidence of hydroureteronephrosis, renal or ureteral stone, bilaterally. There is no evidence of small bowel obstruction. Normal-appearing terminal ileum and appendix. Normal stool burden in the colon without wall thickening. Decompressed urinary bladder limiting evaluation of its wall. Perirectal fat is clear. Visualized osseous structures appear intact. Calcified atheromatous plaques in the abdominal aorta wall down through its bifurcation. Impression: No significant interval change. No CT evidence of an acute process in the abdomen and pelvis. Correlate currently to determine further evaluation and follow-up. Reported By: Any Millard MD [address] Technologist: Gen Smith Transcribed Date/Time: 08/29/162125 Conductor/Engineer: Any Millard Printed Date/Time: [ rep prt dt last] [ rep prt tm last] By: [ rep prt user last] Signed by: Any Millard Signed on: 29-Aug-2016 21:27) Assessment/Plan I believe that the LLQ pain is emanating from the left hip and will order an X ray. The pain is aggravated by lateral rotation of the hip and is not affected by eating or defecation. Her recurrent umbilical hernia discomfort merits a surgical opinion. I will order a Fibrosure as I believe that her elevated alkaline phosphatase reflects a fatty liver and ORTIZ should be excluded. Sarah informs me that he will followup with Dr Emmie Vines now at [facility] for her future colon cancer screenings.
[2016-08-30] MEDS ORDERED: INSULIN (NOVOLOG) ASPART 100 UNITS/ML 10ML VIAL ONE (18:04)
[2016-08-30] MEDS ORDERED: NIFEdipine E.R. 30 MG TABLET (FP) PO ONE (18:45)
[2016-08-30] MEDS: ATORVASTATIN CA 80 MG TABLET (FP) PO SCH (21:40)
[2016-08-30] MEDS: NIFEdipine E.R. 30 MG TABLET (FP) PO SCH (21:40)
[2016-08-30] MEDS: MONTELUKAST NA 10 MG TABLET PO SCH (21:41)
[2016-08-31] MEDS: INSULIN SLIDING SCALE (NOVOLOG) 1 VIAL SQ SCH ×4 (06:16→22:05)
[2016-08-31] MEDS: INSULIN (NOVOLOG MIX 70/30) 100 UNITS/ML MDV SQ SCH ×2 (06:16→17:28)
[2016-08-31 08:33] LABS: FIBROSURE ASH COMMENT SEE FILE COPY
[2016-08-31 08:39] LABS: BASOPHIL 0.4 % (0-2.0); EOSINOPHIL 3.4 % (0-4.5); MCHC 33.6 g/dl (32.0-36.0); MEAN CELL VOLUME 80.3 fl (80-96); MEAN PLT VOLUME 11.2 fl (7.5-11.1); NEUTROPHILS 63.4 % (42.8-82.8); PLATELET COUNT 88 K/MM3 (134-434); RDW 13.9 % (11.6-15.6); WHITE BLOOD COUNT 8.8 K/mm3 (4.0-10.0)
[2016-08-31 09:20] LABS: ALBUMIN 2.9 g/dl (3.4-5.0); ANION GAP 10 (8-16); CALCIUM 9.1 mg/dL (8.5-10.1); CO2 25 mmol/L (21-32); CREATININE 2.1 mg/dL (0.55-1.02); GLUCOSE,RANDOM 155 mg/dL (74-106); SGPT/ALT 19 U/L (12-78)
[2016-08-31 09:22] LABS: ALK PHOS 129 U/L (45-117); BILIRUBIN,TOTAL 0.4 mg/dL (0.2-1.0); TOT PROT 6.2 g/dl (6.4-8.2)
[2016-08-31 09:29] LABS: FERRITIN 62.963 ng/ml (6.9-282.5)
[2016-08-31 09:39] LABS: BILIRUBIN,DIRECT < 0.1 mg/dL (0.0-0.2)
[2016-08-31 09:40] LABS: SGOT/AST 27 U/L (15-37)
[2016-08-31] MEDS: CITALOPRAM HYDROBROMIDE 10 MG TABLET (FP) PO SCH (09:59)
[2016-08-31] MEDS: CARVEDILOL 25 MG TABLET (FP) PO SCH ×2 (09:59→22:01)
[2016-08-31] MEDS: ISOSORBIDE MONONITRATE 30 MG TAB.SR.24H (FP) PO SCH (09:59)
[2016-08-31] MEDS: LOSARTAN POTASSIUM 50 MG TABLET (FP) PO SCH (09:59)
[2016-08-31] MEDS: PANTOPRAZOLE SODIUM 100 ML IVPB SCH (10:01)
[2016-08-31] MEDS: NIFEdipine E.R. 30 MG TABLET (FP) PO SCH ×2 (10:01→22:02)
--- NOTE | 2016-08-31 10:42 | PN ---
Progress Note, Physician History of Present Illness: seen and examined today in nad. states she did not go to sleep all night. no new complaints. continued LLQ abd discomfort. no sob. - Current Medication List Current Medications: Active Medications Acetaminophen (Tylenol -) 650 mg PO Q6H PRN PRN Reason: FEVER OR PAIN Atorvastatin Calcium (Lipitor -) 80 mg PO HS [facility] Last Admin: 08/30/16 21:40 Dose: 80 mg Carvedilol (Coreg -) 25 mg PO BID [facility] Last Admin: 08/31/16 09:59 Dose: 25 mg Citalopram Hydrobromide (Celexa -) 10 mg PO DAILY [facility] Last Admin: 08/31/16 09:59 Dose: 10 mg Pantoprazole Sodium (Protonix 40mg Ivpb (Pre-Docked)) 100 mls @ 200 mls/hr IVPB DAILY [facility] Last Admin: 08/31/16 10:01 Dose: 200 mls/hr Insulin Aspart (Novolog Vial Sliding Scale -) 1 vial SQ ACHS [facility] PRN Reason: Protocol Last Admin: 08/31/16 06:16 Dose: 6 units Insulin Aspart (Novolog Mix 70/30 Vial) 40 units SQ BIDAC [facility] Last Admin: 08/31/16 06:16 Dose: 40 units Isosorbide Mononitrate (Imdur -) 30 mg PO DAILY [facility] Last Admin: 08/31/16 09:59 Dose: 30 mg Losartan Potassium (Cozaar -) 100 mg PO DAILY [facility] Last Admin: 08/31/16 09:59 Dose: 100 mg Montelukast Sodium (Singulair -) 10 mg PO HS [facility] Last Admin: 08/30/16 21:41 Dose: 10 mg Nifedipine (Procardia Xl -) 30 mg PO BID [facility] - Objective Vital Signs: Vital Signs Temperature 97.7 F 08/31/16 09:54 Pulse Rate 72 08/31/16 09:54 Respiratory Rate 20 08/31/16 09:54 Blood Pressure 144/64 08/31/16 09:54 O2 Sat by Pulse Oximetry (%) 98 08/30/16 21:00 Constitutional: Yes: No Distress, Calm, Obese Eyes: Yes: Conjunctiva Clear, EOM Intact, PERRL HENT: Yes: Atraumatic Neck: Yes: Supple, Trachea Midline Cardiovascular: Yes: Regular Rate and Rhythm, Murmur, S1, S2. No: Bradycardia, Tachycardia, Pulse Irregular, Bruit, JVD, Gallop, Rub, S3, S4, Varicosities Respiratory: Yes: Regular, CTA Bilaterally. No: Rales, Rhonchi, Wheezes Gastrointestinal: Yes: Normal Bowel Sounds, Soft. No: Distention, Tenderness Musculoskeletal: Yes: WNL Extremities: Yes: WNL Edema: No Peripheral Pulses WNL: Yes Peripheral Pulses: Left Doralis Pedis: 2+, Right Dorsalis Pedis: 2+ Integumentary: Yes: WNL Neurological: Yes: Alert, Oriented Psychiatric: Yes: Alert, Oriented Labs: CBC, BMP 08/31/16 07:15 08/31/16 07:15 INR, PTT INR 1.00 (0.82-1.09) 08/29/16 18:20 - ....Imaging Chest X-ray: Report Reviewed, Image Reviewed EKG: Report Reviewed, Image Reviewed Other: Report Reviewed, Image Reviewed Assessment/Plan 70 year old woman with a history of HTN, HLD, DMII, obesity, CAD with reported NM x 3, multiple prior PCI with stents, Ischemic cardiomyopathy with severe LV systolic dysfunction in the past, chronic systolic CHF, s/p ICD, recurrent anemia, depression, admitted with 1.5 week h/o fatigue and few day h/o LLQ discomfort. Notes chronic intermittent mild L axilla discomfort for which she has been evaluated in the past including [address] Jones. denies other chest pain. Of note pt has a history of significant depression for which she is under the care of a psychiatrist and psychologist. Fatigue-unclear etiology, suspect due to depression -clinically does not appear to be in decompensated CHF (chest clear, no edema) -pt reports not sleeping at all last night and is wide awake currently -further work up as per PMD CHF-ischemic cardiomyopathy with chronic systolic CHF, h/o severe LV systolic dysfunction s/p ICD, last echo here 07/2015 showed overall normal EF with mild inferolateral hypokinesis, unknown if more recent echo done in outpatient setting -clinically euvolemic with clear lungs and no edema and no reported SOB/hart, despite elevated BNP -cardiac enzymes wnl -pt states she is not on Lasix at home -would recc to hold off on Lasix for now in light of clinical euvolemia and elevated bun/creat -Cxr 08/30 showed clear lungs -cont home CHF meds Coreg, Losartan, Imdur -pt reports recent ICD interrogation that was normal [address] Jones CAD-history as above -no chest pain, aside from chronic atypical chest pain -no sob -cardiac enzymes wnl -cont coreg, losartan, imdur, lipitor -start ASA 81mg daily if no contraindication HTN-well controlled on admission, but uncontrolled yesterday even after receiving usual home medications -changed amlodipine to nifedipine er 30mg bid yesterday with improvement in HTN -cont nifedipine er 30mg bid as well as Coreg, Losartan, and Imdur Abdominal pain-LLQ -CT a/p read as no acute process -GI evaluated
--- NOTE | 2016-08-31 10:43 | PN ---
Progress Note (short form) - Note Progress Note: GI NOte: No new pain. Hip Xray supports degenerative changes. Bladder sonogram unremarkable. NO GI objections to discharge. Can refer for surgical opinion re: umbilical incisional hernia repair. Sarah will do her GI followup with Dr. Emmie Vines. I than you for this consultative opportunity.
--- NOTE | 2016-08-31 12:05 | PN ---
Progress Note (short form) - Note Progress Note: RENAL Pt is awake and alert comfortable says she has not been able to sleep Last Vital Signs Temp Pulse Resp BP Pulse Ox 97.7 F 72 20 144/64 98 08/31/16 09:54 08/31/16 09:54 08/31/16 09:54 08/31/16 09:54 08/30/16 21:00 lungs clear cvs s1s2 rr abd soft ext +left lower extremity edema neuro a+ox3 CBC, BMP 08/31/16 07:15 08/31/16 07:15 Current Medications Generic Name Dose Route Start Last Admin Trade Name Freq PRN Reason Stop Dose Admin Acetaminophen 650 mg 08/29/16 23:21 Tylenol - PO Q6H PRN FEVER OR PAIN Atorvastatin Calcium 80 mg 08/30/16 22:00 08/30/16 21:40 Lipitor - PO 80 mg HS JOS Administration Carvedilol 25 mg 08/30/16 10:00 08/31/16 09:59 Coreg - PO 25 mg BID JOS Administration Citalopram Hydrobromide 10 mg 08/30/16 10:00 08/31/16 09:59 Celexa - PO 10 mg DAILY JOS Administration Insulin Aspart 1 vial 08/30/16 07:00 08/31/16 11:57 Novolog Vial Sliding Scale - SQ Not Given ACHS [facility] Protocol Insulin Aspart 40 units 08/30/16 07:00 08/31/16 06:16 Novolog Mix 70/30 Vial SQ 40 units BIDAC JOS Administration Isosorbide Mononitrate 30 mg 08/30/16 10:00 08/31/16 09:59 Imdur - PO 30 mg DAILY JOS Administration Losartan Potassium 100 mg 08/30/16 10:00 08/31/16 09:59 Cozaar - PO 100 mg DAILY JOS Administration Montelukast Sodium 10 mg 08/30/16 22:00 08/30/16 21:41 Singulair - PO 10 mg HS JOS Administration Nifedipine 30 mg 08/31/16 10:33 Procardia Xl - PO BID JOS IMPRESSION CKD stable UTI abdominal pain probably already better not clinically in chf PLAN continue current management monitor platelet count BP is better controlled MV
--- NOTE | 2016-08-31 12:19 | PN ---
Progress Note, Physician Chief Complaint: SLEEP DISTURBANCES/FATIGUE/WILL NEED SLEEP APNEA SCREENING DAUGHTER BEDSIDE - Current Medication List Current Medications: Active Medications Acetaminophen (Tylenol -) 650 mg PO Q6H PRN PRN Reason: FEVER OR PAIN Atorvastatin Calcium (Lipitor -) 80 mg PO HS [facility] Last Admin: 08/30/16 21:40 Dose: 80 mg Carvedilol (Coreg -) 25 mg PO BID [facility] Last Admin: 08/31/16 09:59 Dose: 25 mg Citalopram Hydrobromide (Celexa -) 10 mg PO DAILY [facility] Last Admin: 08/31/16 09:59 Dose: 10 mg Insulin Aspart (Novolog Vial Sliding Scale -) 1 vial SQ ACHS [facility] PRN Reason: Protocol Last Admin: 08/31/16 11:57 Dose: Not Given Insulin Aspart (Novolog Mix 70/30 Vial) 40 units SQ BIDAC [facility] Last Admin: 08/31/16 06:16 Dose: 40 units Isosorbide Mononitrate (Imdur -) 30 mg PO DAILY [facility] Last Admin: 08/31/16 09:59 Dose: 30 mg Losartan Potassium (Cozaar -) 100 mg PO DAILY [facility] Last Admin: 08/31/16 09:59 Dose: 100 mg Montelukast Sodium (Singulair -) 10 mg PO HS [facility] Last Admin: 08/30/16 21:41 Dose: 10 mg Nifedipine (Procardia Xl -) 30 mg PO BID [facility] - Objective Vital Signs: Vital Signs Temperature 97.7 F 08/31/16 09:54 Pulse Rate 72 08/31/16 09:54 Respiratory Rate 20 08/31/16 09:54 Blood Pressure 144/64 08/31/16 09:54 O2 Sat by Pulse Oximetry (%) 98 08/30/16 21:00 Constitutional: Yes: Mild Distress Eyes: Yes: WNL HENT: Yes: WNL Neck: Yes: WNL Cardiovascular: Yes: WNL Respiratory: Yes: WNL, SOB on Exertion Genitourinary: Yes: WNL Musculoskeletal: Yes: WNL Extremities: Yes: WNL Edema: No Peripheral Pulses WNL: Yes Integumentary: Yes: WNL Wound/Incision: Yes: Clean/Dry Neurological: Yes: WNL ...Motor Strength: WNL Psychiatric: Yes: WNL Labs: CBC, BMP 08/31/16 07:15 08/31/16 07:15 INR, PTT INR 1.00 (0.82-1.09) 08/29/16 18:20 Problem List - Problems (1) Abdominal pain Code(s): R10.9 - UNSPECIFIED ABDOMINAL PAIN Qualifiers: Abdominal location: left lower quadrant Qualified Code(s): R10.32 - Left lower quadrant pain (2) Chest pain Code(s): R07.9 - CHEST PAIN, UNSPECIFIED Qualifiers: Ischemic chest pain type: unspecified angina pectoris type (3) Elevated brain natriuretic peptide (BNP) level Code(s): R79.89 - OTHER SPECIFIED ABNORMAL FINDINGS OF BLOOD CHEMISTRY (4) Acute on chronic diastolic CHF (congestive heart failure) Code(s): I50.33 - ACUTE ON CHRONIC DIASTOLIC (CONGESTIVE) HEART FAILURE (5) Diabetes Code(s): E11.9 - TYPE 2 DIABETES MELLITUS WITHOUT COMPLICATIONS Qualifiers: Diabetes mellitus type: type 2 Diabetes mellitus complication status: with unspecified complications (6) Shortness of breath Code(s): R06.02 - SHORTNESS OF BREATH (7) Sleep apnea Code(s): G47.30 - SLEEP APNEA, UNSPECIFIED (8) Weakness Code(s): R53.1 - WEAKNESS Assessment/Plan CHF WORKUP ECHO PENDING CARDIOLOGY EVAL IN PROGRESS WILL NEED SLEEP APNEA WORKUP DEPRESSION ON CELEXA RENAL FUNCTION IMPROVED
[2016-08-31] MEDS ORDERED: INSULIN (NOVOLOG) ASPART 100 UNITS/ML 10ML VIAL ONE ×2 (17:25→21:07)
[2016-08-31] MEDS: MONTELUKAST NA 10 MG TABLET PO SCH (22:01)
[2016-08-31] MEDS: ATORVASTATIN CA 80 MG TABLET (FP) PO SCH (22:01)
--- NOTE | 2016-08-31 22:47 | CONSULT ---
Consult Consult Specialty:: General Surgery Referred by:: Dr. Bhardwaj Reason for Consultation:: LLQ pain, abdominal bulge/recurrent hernia - History of Present Illness Chief Complaint: LLQ/groin pain, supraumbilical bulging with pain after hernia repair History of Present Illness: 70yo obese F admitted for evaluation of a dull aching LLQ/groin pain also complains of chronic supraumbilical bulge with progressive discomfort over the last 6 months. She had a supraumbilical hernia repair with mesh ~12 years ago(?) , and had noticed a recurrent bulge for at least the last couple of years. The LLQ pain appears to be related more to left hip degenerative changes, now seen on Xray. No n/v, no change in bowel habits. She moves her bowels regularly. Per GI, she has had several EGDs and a colonoscopy with Dr Alvarenga and Dr Emmie Vines, with findings of a hiatal hernia and in 03/10 retained food. She is diabetic with other medical comorbidities including renal insufficiency, CHF, cardiac stents, h/o MIs, AICD, HTN, and possible sleep apnea. Abd/pelvis CT showed no acute findings related to the initial c/o LLQ pain, nor is there a clear finding of a significant supraumbilical hernia. My review of the images does suggest the presence of an overlay mesh in the supraumbilical area, though tiny midline defects are not definitively appreciated in all planes. In [facility] , she has a few prior CTs, the earliest being in 2012, done to look for evidence of ventral hernia, and showing the same apparent mesh in place, with reports showing "no hernia." She states she has gained ~30 pounds in the last year or so, and intends to lose weight again. - History Source History Provided By: Patient, Medical Record Limitations to Obtaining History: No Limitations - Past Medical History Cardio/Vascular: Yes: CAD (5 coronarty stents), CHF, HTN, Hyperlipdemia (CAD, CARDIOMYOPATHY(ISCHEMIC)), [place], Other (has a defibrillator) Pulmonary: Yes: Asthma Gastrointestinal: Yes: Hiatal Hernia Hepatobiliary: Yes: Other (fatty liver) Renal/: Yes: Renal Inusuff Psych: Yes: Anxiety, Depression Musculoskeletal: Yes: Chronic low back pain Endocrine: Yes: Diabetes Mellitus - Past Surgical History Past Surgical History: Yes: AICD, Breast Biopsy (benign right breast lesion excision), Cataract Removal (bilateral and retinal laser surgery), Colonoscopy, Hernia Repair (supraumbilical with mesh ~12 (?) yrs ago), Hysterectomy (PALMA for fibroids, ovaries are intact), Stent (5 coronary stents) - Alcohol/Substance Use Hx Alcohol Use: No History of Substance Use: reports: None - Smoking History Smoking history: Never smoked Have you smoked in the past 12 months: No Aproximately how many cigarettes per day: 0 - Social History Usual Living Arrangement: Alone ADL: Independent Occupation: retired teacher History of Recent Travel: No Home Medications - Allergies Allergies/Adverse Reactions: Allergies Allergy/AdvReac Type Severity Reaction Status Date / Time No Known Drug Allergies Allergy Verified 08/29/16 14:41 - Home Medications Home Medications: Ambulatory Orders Atorvastatin Ca [Lipitor] 80 mg PO HS 08/29/16 Carvedilol 25 mg PO BID 08/29/16 Citalopram Hydrobromide [Celexa -] 10 mg PO DAILY 08/29/16 Insulin (Novolog 70/30) [Novolog Mix 70/30 Flexpen -] 40 units SQ BIDAC Isosorbide Mononitrate [Isosorbide Mononitrate ER] 30 mg PO DAILY 08/29/16 Losartan Potassium 100 mg PO DAILY 08/29/16 Montelukast Na [Singulair -] 10 mg PO HS 08/29/16 Family Disease History - Family Disease History Family Disease History: Diabetes: Mother, Heart Disease: Father ( [place] age 56) , Mother, CA: Sister ( uterine cancer) Review of Systems - Review of Systems Constitutional: denies: Chills, Fever Eyes: denies: Blurred Vision, Double Vision HENT: denies: Nasal Congestion, Throat Pain Cardiovascular: denies: Chest Pain, Palpitations Respiratory: denies: Cough, SOB Gastrointestinal: reports: Abdominal Pain. denies: Constipation, Diarrhea, Nausea, Vomiting Genitourinary: denies: Burning, Dysuria Musculoskeletal: reports: Back Pain, Joint Pain (left hip) Integumentary: denies: Change in Color, Rash Neurological: denies: Dizziness, Headache Endocrine: denies: Unexplained Weight Gain, Unexplained Weight Loss Hematology/Lymphatic: denies: Easily Bruised, Swollen Glands Psychiatric: reports: Anxiety Physical Exam Vital Signs: Vital Signs Temperature 98.1 F 08/31/16 18:00 Pulse Rate 73 08/31/16 18:00 Respiratory Rate 20 08/31/16 18:00 Blood Pressure 137/67 08/31/16 18:00 O2 Sat by Pulse Oximetry (%) 97 08/31/16 11:00 Constitutional: Yes: No Distress, Calm, Obese Eyes: Yes: Conjunctiva Clear, EOM Intact HENT: Yes: Atraumatic, Normocephalic Cardiovascular: Yes: Regular Rate and Rhythm, Other (AICD palpable at left upper chest) Respiratory: Yes: Regular, CTA Bilaterally Gastrointestinal: Yes: Normal Bowel Sounds, Soft, Abdomen, Obese, Hernia ( moderate sized bulge present with Valsalva though no large hernia is identified - couple of very small/<1cm defects palpable in midline under healed scar with fat protrusion, somewhat tender, partly reducible; mesh also feels palpable in this area), Tenderness (over midline supraumbilical area; also over low LLQ and groin area, more joint related than intraabdominal tenderness). No: Distention ...Rectal Exam: Yes: Deferred Renal/: No: CVA Tenderness - Left, CVA Tenderness - Right Musculoskeletal: Yes: Other (pain/tenderness on palpation of left hip - reproduces LLQ/groin discomfort). No: Joint Swelling Extremities: No: Cool, Cyanosis Edema: No Peripheral Pulses WNL: Yes Integumentary: No: Bruising, Rash Neurological: Yes: Alert, Oriented Psychiatric: Yes: Alert, Oriented Labs: CBC, BMP 08/31/16 07:15 08/31/16 07:15 CMP Sodium 140 mmol/L (136-145) 08/31/16 07:15 Potassium 3.6 mmol/L (3.5-5.1) 08/31/16 07:15 Chloride 105 mmol/L (98-107) 08/31/16 07:15 Carbon Dioxide 25 mmol/L (21-32) 08/31/16 07:15 Anion Gap 10 (8-16) 08/31/16 07:15 BUN 32 mg/dL (7-18) H 08/31/16 07:15 Creatinine 2.1 mg/dL (0.55-1.02) H 08/31/16 07:15 Creat Clearance w eGFR 23.28 (>60) 08/29/16 18:20 POC Glucometer 198 UNITS (()) 08/31/16 22:04 Random Glucose 155 mg/dL (74-106) H D 08/31/16 07:15 Hemoglobin A1c % 10.8 % (4.8-6.0) H D 08/31/16 12:30 Lactic Acid 1.8 mmol/L (0.4-2.0) 08/29/16 18:20 Calcium 9.1 mg/dL (8.5-10.1) 08/31/16 07:15 Ferritin 62.963 ng/ml (6.9-282.5) 08/31/16 07:15 Total Bilirubin 0.4 mg/dL (0.2-1.0) D 08/31/16 07:15 Direct Bilirubin < 0.1 mg/dL (0.0-0.2) 08/31/16 07:15 GGT 35 U/L (5-85) 08/31/16 07:15 AST 27 U/L (15-37) D 08/31/16 07:15 ALT 19 U/L (12-78) 08/31/16 07:15 Alkaline Phosphatase 129 U/L (45-117) H 08/31/16 07:15 Creatine Kinase 149 IU/L (26-192) 08/29/16 18:20 Troponin I 0.05 ng/ml (0.00-0.05) 08/29/16 18:20 C-Reactive Protein < 0.3 MG/DL (0.00-0.3) 08/29/16 18:20 B-Natriuretic Peptide 9532.97 pg/ml (5-125) H 08/29/16 18:20 Total Protein 6.2 g/dl (6.4-8.2) L 08/31/16 07:15 Albumin 2.9 g/dl (3.4-5.0) L 08/31/16 07:15 TSH 1.28 uIU/ml (0.358-3.74) D 08/29/16 18:20 Imaging - Results Cat Scan: Report Reviewed, Image Reviewed Problem List - Problems (1) Incisional hernia without mention of obstruction or gangrene Assessment/Plan: likely incisional hernia/recurrent hernia after mesh repair of supraumbilical hernia no obstruction, incarceration or strangulation or evidence of bowel involvement long discussion with patient and family members regarding elective nature of hernia repair, role of medical comorbidities in surgical risk, need for her to weigh risks and benefits of surgical intervention, her plan to lose weight, need to address left hip issue, sleep apnea workup, and other personal priorities - there is no hurry or even necessity to hernia re-repair in the absence of the above symptoms repair could require removal of previous mesh weight change may impact both the hernia itself and her comfort with it, as well as her hip issues She is welcome to follow up with me in the office to discuss an operation; I gave her my card. At this time, she plans to follow up with other health priorities and lose weight before pursuing any surgical intervention for hernia. Thank you for the opportunity to participate in the care of this patient. Code(s): K43.2 - INCISIONAL HERNIA WITHOUT OBSTRUCTION OR GANGRENE Qualifiers : Obstruction and gangrene presence: without obstruction or gangrene Qualified Code(s): K43.2 - Incisional hernia without obstruction or gangrene (2) Acute on chronic diastolic CHF (congestive heart failure) Code(s): I50.33 - ACUTE ON CHRONIC DIASTOLIC (CONGESTIVE) HEART FAILURE (3) Diabetes Code(s): E11.9 - TYPE 2 DIABETES MELLITUS WITHOUT COMPLICATIONS Qualifiers: Diabetes mellitus type: type 2 Diabetes mellitus complication status: with kidney complications Diabetes mellitus complication detail: with chronic kidney disease Diabetes mellitus adjunct faculty for medical terminology insulin use: unspecified group home insulin use status Chronic kidney disease stage: unspecified stage Qualified Code(s): E11.22 - Type 2 diabetes mellitus with diabetic chronic kidney disease (4) Obesity Assessment/Plan: Pt wants to lose weight and achieve stable weight before pursuing surgical options Code(s): E66.9 - OBESITY, UNSPECIFIED Qualifiers: Obesity type: due to excess calories Obesity severity: unspecified obesity severity Qualified Code(s): E66.09 - Other obesity due to excess calories (5) Hip pain, left Assessment/Plan: defer to primary team to direct w/u, f/u Code(s): M25.552 - PAIN IN LEFT HIP
[2016-09-01] MEDS: INSULIN SLIDING SCALE (NOVOLOG) 1 VIAL SQ SCH ×4 (06:13→22:36)
[2016-09-01] MEDS: INSULIN (NOVOLOG MIX 70/30) 100 UNITS/ML MDV SQ SCH ×2 (06:13→16:11)
[2016-09-01] MEDS ORDERED: INSULIN (NOVOLOG) ASPART 100 UNITS/ML 10ML VIAL ONE ×2 (07:01→16:05)
[2016-09-01] MEDS: LOSARTAN POTASSIUM 50 MG TABLET (FP) PO SCH (11:06)
[2016-09-01] MEDS: ISOSORBIDE MONONITRATE 30 MG TAB.SR.24H (FP) PO SCH (11:06)
[2016-09-01] MEDS: NIFEdipine E.R. 30 MG TABLET (FP) PO SCH ×2 (11:07→22:37)
[2016-09-01] MEDS: CARVEDILOL 25 MG TABLET (FP) PO SCH ×2 (11:07→22:35)
[2016-09-01] MEDS: CITALOPRAM HYDROBROMIDE 10 MG TABLET (FP) PO SCH (11:07)
--- NOTE | 2016-09-01 11:53 | PN ---
Progress Note, Physician History of Present Illness: 70 year old woman with a history of HTN, HLD, DMII, obesity, CAD with reported LA x 3, multiple prior PCI with stents, Ischemic cardiomyopathy with severe LV systolic dysfunction in the past, chronic systolic CHF, s/p ICD, recurrent anemia, depression, admitted with 1.5 week h/o fatigue and few day h/o LLQ discomfort. Pt. was seen and examined this am in nad. States that she is feeling well and would like to go home. Admits to chronic intermittent mild L axilla discomfort. She states she was evaluated by Dr. Jones 2 weeks ago including PPM check and she was told she was doing well. She denies any sob or hart. Denies any edema. No pnd, orthopnea. No lightheadedness or dizziness. No syncope or near syncope. Of note pt has a history of significant depression for which she is under the care of a psychiatrist and psychologist. - Current Medication List Current Medications: Active Medications Acetaminophen (Tylenol -) 650 mg PO Q6H PRN PRN Reason: FEVER OR PAIN Atorvastatin Calcium (Lipitor -) 80 mg PO HS [facility] Last Admin: 08/31/16 22:01 Dose: 80 mg Carvedilol (Coreg -) 25 mg PO BID [facility] Last Admin: 09/01/16 11:07 Dose: 25 mg Citalopram Hydrobromide (Celexa -) 10 mg PO DAILY [facility] Last Admin: 09/01/16 11:07 Dose: 10 mg Insulin Aspart (Novolog Mix 70/30 Vial) 40 units SQ BIDAC [facility] Last Admin: 09/01/16 06:13 Dose: 40 units Insulin Aspart (Novolog Vial Sliding Scale -) 1 vial SQ ACHS [facility] PRN Reason: Protocol Last Admin: 09/01/16 11:07 Dose: Not Given Isosorbide Mononitrate (Imdur -) 30 mg PO DAILY [facility] Last Admin: 09/01/16 11:06 Dose: 30 mg Losartan Potassium (Cozaar -) 100 mg PO DAILY [facility] Last Admin: 09/01/16 11:06 Dose: 100 mg Montelukast Sodium (Singulair -) 10 mg PO HS [facility] Last Admin: 08/31/16 22:01 Dose: 10 mg Nifedipine (Procardia Xl -) 30 mg PO BID [facility] Last Admin: 09/01/16 11:07 Dose: 30 mg - Objective Vital Signs: Vital Signs Temperature 98.0 F 09/01/16 06:00 Pulse Rate 77 09/01/16 06:00 Respiratory Rate 20 09/01/16 06:00 Blood Pressure 151/71 09/01/16 06:00 O2 Sat by Pulse Oximetry (%) 97 08/31/16 21:00 Eyes: Yes: WNL, Conjunctiva Clear, EOM Intact HENT: Yes: WNL, Atraumatic, Normocephalic Neck: Yes: WNL, Supple, Trachea Midline Cardiovascular: Yes: WNL, Regular Rate and Rhythm Respiratory: Yes: WNL, Regular, CTA Bilaterally Gastrointestinal: Yes: WNL, Normal Bowel Sounds Genitourinary: Yes: WNL Musculoskeletal: Yes: WNL Extremities: Yes: WNL Edema: No Integumentary: Yes: WNL Neurological: Yes: WNL, Alert, Oriented ...Motor Strength: WNL Psychiatric: Yes: WNL Labs: CBC, BMP 08/31/16 07:15 08/31/16 07:15 INR, PTT INR 1.00 (0.82-1.09) 08/29/16 18:20 Assessment/Plan 1 year old woman with a history of HTN, HLD, DMII, obesity, CAD with reported LA x 3, multiple prior PCI with stents, Ischemic cardiomyopathy with severe LV systolic dysfunction in the past, chronic systolic CHF, s/p ICD, recurrent anemia, depression, admitted with 1.5 week h/o fatigue and few day h/o LLQ discomfort. Notes chronic intermittent mild L axilla discomfort for which she has been evaluated in the past including [address] Jones. denies other chest pain. Of note pt has a history of significant depression for which she is under the care of a psychiatrist and psychologist. Fatigue-unclear etiology, suspect due to depression -clinically does not appear to be in decompensated CHF (chest clear, no edema) -pt reports not sleeping at all last night and is wide awake currently -further work up as per PMD CHF-ischemic cardiomyopathy with chronic systolic CHF, h/o severe LV systolic dysfunction s/p ICD, last echo here 07/2015 showed overall normal EF with mild inferolateral hypokinesis, unknown if more recent echo done in outpatient setting -clinically euvolemic with clear lungs and no edema and no reported SOB/hart, despite elevated BNP -cardiac enzymes wnl -pt states she is not on Lasix at home -would recc to hold off on Lasix for now in light of clinical euvolemia and elevated bun/creat -Cxr 08/30 showed clear lungs -cont home CHF meds Coreg, Losartan, Imdur -pt reports recent ICD interrogation that was normal [address] Jones CAD-history as above -no chest pain, aside from chronic atypical chest pain -no sob -cardiac enzymes wnl -cont coreg, losartan, imdur, lipitor -start ASA 81mg daily if no contraindication HTN-well controlled on admission, but uncontrolled yesterday even after receiving usual home medications -changed amlodipine to nifedipine er 30mg bid yesterday with improvement in HTN -cont nifedipine er 30mg bid as well as Coreg, Losartan, and Imdur Abdominal pain-LLQ -CT a/p read as no acute process -GI evaluated
--- NOTE | 2016-09-01 13:57 | EKG ---
Test Reason : Blood Pressure : / mmHG Vent. Rate : 066 BPM Atrial Rate : 066 BPM P-R Int : 190 ms QRS Dur : 116 ms QT Int : 454 ms P-R-T Axes : 036 018 153 degrees QTc Int : 475 ms NORMAL SINUS RHYTHM PROLONGED QT ABNORMAL ECG WHEN COMPARED WITH ECG OF 22-JAN-2016 13:32, NO SIGNIFICANT CHANGE WAS FOUND Confirmed by TRIP AUGUSTE MD ([id number]) on 09/01/2016 1:57:17 PM Referred By: Confirmed By:TRIP AUGUSTE MD
[2016-09-01 14:10] LABS: SERUM IRON 54 ug/dL (27-139); TOTAL IRON BINDING CAPACITY 350 ug/dL (250-450); UIBC 296 ug/dL (118-369)
--- NOTE | 2016-09-01 14:14 | PN ---
Progress Note, Physician History of Present Illness: Pt seen and examined at bedside. She is awake and alert. She denies shortness of breath. - Current Medication List Current Medications: Active Medications Acetaminophen (Tylenol -) 650 mg PO Q6H PRN PRN Reason: FEVER OR PAIN Atorvastatin Calcium (Lipitor -) 80 mg PO HS [facility] Last Admin: 08/31/16 22:01 Dose: 80 mg Carvedilol (Coreg -) 25 mg PO BID [facility] Last Admin: 09/01/16 11:07 Dose: 25 mg Citalopram Hydrobromide (Celexa -) 10 mg PO DAILY [facility] Last Admin: 09/01/16 11:07 Dose: 10 mg Insulin Aspart (Novolog Mix 70/30 Vial) 40 units SQ BIDAC [facility] Last Admin: 09/01/16 06:13 Dose: 40 units Insulin Aspart (Novolog Vial Sliding Scale -) 1 vial SQ ACHS [facility] PRN Reason: Protocol Last Admin: 09/01/16 11:07 Dose: Not Given Isosorbide Mononitrate (Imdur -) 30 mg PO DAILY [facility] Last Admin: 09/01/16 11:06 Dose: 30 mg Losartan Potassium (Cozaar -) 100 mg PO DAILY [facility] Last Admin: 09/01/16 11:06 Dose: 100 mg Montelukast Sodium (Singulair -) 10 mg PO HS [facility] Last Admin: 08/31/16 22:01 Dose: 10 mg Nifedipine (Procardia Xl -) 30 mg PO BID [facility] Last Admin: 09/01/16 11:07 Dose: 30 mg - Objective Vital Signs: Vital Signs Temperature 98.0 F 09/01/16 06:00 Pulse Rate 77 09/01/16 06:00 Respiratory Rate 20 09/01/16 09:00 Blood Pressure 151/71 09/01/16 06:00 O2 Sat by Pulse Oximetry (%) 97 09/01/16 09:00 Constitutional: Yes: Calm Eyes: Yes: Conjunctiva Clear Cardiovascular: Yes: S1, S2 Respiratory: Yes: CTA Bilaterally Gastrointestinal: Yes: Normal Bowel Sounds, Soft Genitourinary: Yes: WNL Musculoskeletal: Yes: WNL Edema: No Neurological: Yes: Oriented Psychiatric: Yes: Oriented Labs: CBC, BMP 08/31/16 07:15 08/31/16 07:15 INR, PTT INR 1.00 (0.82-1.09) 07/07/17 18:20 Problem List - Problems (1) Abdominal pain Code(s): R10.9 - UNSPECIFIED ABDOMINAL PAIN Qualifiers: Abdominal location: left lower quadrant Qualified Code(s): R10.32 - Left lower quadrant pain (2) Chest pain Code(s): R07.9 - CHEST PAIN, UNSPECIFIED Qualifiers: Ischemic chest pain type: unspecified angina pectoris type (3) Chronic kidney disease (CKD) Code(s): N18.9 - CHRONIC KIDNEY DISEASE, UNSPECIFIED Qualifiers: Chronic kidney disease stage: unspecified stage Qualified Code(s): N18.9 - Chronic kidney disease, unspecified (4) Diabetes Code(s): E11.9 - TYPE 2 DIABETES MELLITUS WITHOUT COMPLICATIONS Qualifiers: Diabetes mellitus type: type 2 Diabetes mellitus complication status: with kidney complications Diabetes mellitus complication detail: with chronic kidney disease Diabetes mellitus director long term care insulin use: unspecified director long term care insulin use status Chronic kidney disease stage: unspecified stage Qualified Code(s): E11.22 - Type 2 diabetes mellitus with diabetic chronic kidney disease; N18.1 - Chronic kidney disease, stage 1; Z79.4 - FPC (current) use of insulin (5) HTN (hypertension) Code(s): I10 - ESSENTIAL (PRIMARY) HYPERTENSION Assessment/Plan Current Medications Generic Name Dose Route Start Last Admin Trade Name Freq PRN Reason Stop Dose Admin Acetaminophen 650 mg 08/29/16 23:21 Tylenol - PO Q6H PRN FEVER OR PAIN Atorvastatin Calcium 80 mg 08/30/16 22:00 08/31/16 22:01 Lipitor - PO 80 mg HS JOS Administration Carvedilol 25 mg 08/30/16 10:00 09/01/16 11:07 Coreg - PO 25 mg BID JOS Administration Citalopram Hydrobromide 10 mg 08/30/16 10:00 09/01/16 11:07 Celexa - PO 10 mg DAILY JOS Administration Insulin Aspart 40 units 08/30/16 07:00 09/01/16 06:13 Novolog Mix 70/30 Vial SQ 40 units BIDAC JOS Administration Insulin Aspart 1 vial 09/01/16 07:00 09/01/16 11:07 Novolog Vial Sliding Scale - SQ Not Given ACHS JOS Protocol Isosorbide Mononitrate 30 mg 08/30/16 10:00 09/01/16 11:06 Imdur - PO 30 mg DAILY JOS Administration Losartan Potassium 100 mg 08/30/16 10:00 09/01/16 11:06 Cozaar - PO 100 mg DAILY JOS Administration Montelukast Sodium 10 mg 08/30/16 22:00 08/31/16 22:01 Singulair - PO 10 mg HS JOS Administration Nifedipine 30 mg 08/31/16 10:33 09/01/16 11:07 Procardia Xl - PO 30 mg BID JOS Administration Laboratory Tests 08/18/15 08/29/16 08/31/16 06:00 18:20 07:15 Urine Protein 3+ H Urine Blood 1+ H Urine Bacteria Moderate ODILIA M-Urban Pending MODETSO Screen Negative Hep B Core Total Ab Positive H Pending Hepatitis A Ab Total Negative Pending Hep Bs Antigen Negative Pending Hep Bs Antibody Non reactive Pending Hepatitis C Antibody Pending Impression 1. CKD with an acute component 2. CAD 3. DM 4. asthma 5. hyperlipidemia 6. HTN Plan - repeat labs in am - pt did follow with Dr Minor in the office, will need further workup - follow hep panel - PO intake is improved - will follow - 08/29 urine culture appears contaminated
--- NOTE | 2016-09-01 17:38 | PN ---
Progress Note, Physician Chief Complaint: AWAKE ALERT FEELING BETTER - Current Medication List Current Medications: Active Medications Acetaminophen (Tylenol -) 650 mg PO Q6H PRN PRN Reason: FEVER OR PAIN Atorvastatin Calcium (Lipitor -) 80 mg PO HS [facility] Last Admin: 08/31/16 22:01 Dose: 80 mg Carvedilol (Coreg -) 25 mg PO BID [facility] Last Admin: 09/01/16 11:07 Dose: 25 mg Citalopram Hydrobromide (Celexa -) 10 mg PO DAILY [facility] Last Admin: 09/01/16 11:07 Dose: 10 mg Insulin Aspart (Novolog Mix 70/30 Vial) 40 units SQ BIDAC [facility] Last Admin: 09/01/16 16:11 Dose: 40 units Insulin Aspart (Novolog Vial Sliding Scale -) 1 vial SQ ACHS [facility] PRN Reason: Protocol Last Admin: 09/01/16 16:07 Dose: 7 units Isosorbide Mononitrate (Imdur -) 30 mg PO DAILY [facility] Last Admin: 09/01/16 11:06 Dose: 30 mg Losartan Potassium (Cozaar -) 100 mg PO DAILY [facility] Last Admin: 09/01/16 11:06 Dose: 100 mg Montelukast Sodium (Singulair -) 10 mg PO [facility] Last Admin: 08/31/16 22:01 Dose: 10 mg Nifedipine (Procardia Xl -) 30 mg PO BID [facility] Last Admin: 09/01/16 11:07 Dose: 30 mg - Objective Vital Signs: Vital Signs Temperature 98.0 F 09/01/16 15:46 Pulse Rate 70 09/01/16 15:46 Respiratory Rate 20 09/01/16 15:46 Blood Pressure 147/65 09/01/16 15:46 O2 Sat by Pulse Oximetry (%) 97 09/01/16 09:00 Constitutional: Yes: No Distress Eyes: Yes: WNL HENT: Yes: WNL Neck: Yes: WNL Cardiovascular: Yes: WNL Respiratory: Yes: WNL Gastrointestinal: Yes: WNL Genitourinary: Yes: WNL Musculoskeletal: Yes: Muscle Pain Extremities: Yes: Other Edema: No Edema: LLE: Trace, RLE: Trace Peripheral Pulses WNL: Yes Integumentary: Yes: WNL Wound/Incision: Yes: Clean/Dry Neurological: Yes: WNL ...Motor Strength: WNL Psychiatric: Yes: Alert, Other Labs: CBC, BMP 08/31/16 07:15 08/31/16 07:15 INR, PTT INR 1.00 (0.82-1.09) 08/29/16 18:20 Problem List - Problems (1) Abdominal pain Code(s): R10.9 - UNSPECIFIED ABDOMINAL PAIN Qualifiers: Abdominal location: left lower quadrant Qualified Code(s): R10.32 - Left lower quadrant pain (2) Chest pain Code(s): R07.9 - CHEST PAIN, UNSPECIFIED Qualifiers: Ischemic chest pain type: unspecified angina pectoris type (3) Elevated brain natriuretic peptide (BNP) level Code(s): R79.89 - OTHER SPECIFIED ABNORMAL FINDINGS OF BLOOD CHEMISTRY (4) Acute on chronic diastolic CHF (congestive heart failure) Code(s): I50.33 - ACUTE ON CHRONIC DIASTOLIC (CONGESTIVE) HEART FAILURE (5) Diabetes Code(s): E11.9 - TYPE 2 DIABETES MELLITUS WITHOUT COMPLICATIONS Qualifiers: Diabetes mellitus type: type 2 Diabetes mellitus complication status: with kidney complications Diabetes mellitus complication detail: with chronic kidney disease Diabetes mellitus usp 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
--- NOTE | 2016-09-01 18:33 | CONSULT ---
Consult Consult Specialty:: endocrine Referred by:: enid nava Reason for Consultation:: diabetes mellitus - History of Present Illness Chief Complaint: high sugars History of Present Illness: 70-year-old female with history of dm, CHF, anemia presents with progressive generalized weakness for 10 days in the setting of some new or chest heaviness and left lower quadrant pain.weight gain,nausea,bloating difficulty with constant weight despite diet and limited exercise. - History Source History Provided By: Patient - Past Medical History Cardio/Vascular: Yes: CAD (5 coronarty stents), CHF, HTN, Hyperlipdemia (CAD, CARDIOMYOPATHY(ISCHEMIC)), [place], Other (has a defibrillator) Pulmonary: Yes: Asthma Gastrointestinal: Yes: Hiatal Hernia Hepatobiliary: Yes: Other (fatty liver) Renal/: Yes: Renal Inusuff Psych: Yes: Anxiety, Depression Musculoskeletal: Yes: Chronic low back pain Endocrine: Yes: Diabetes Mellitus - Past Surgical History Past Surgical History: Yes: AICD, Breast Biopsy (benign right breast lesion excision), Cataract Removal (bilateral and retinal laser surgery), Colonoscopy, Hernia Repair (supraumbilical with mesh ~12 (?) yrs ago), Hysterectomy (PALMA for fibroids, ovaries are intact), Stent (5 coronary stents) - Alcohol/Substance Use Hx Alcohol Use: No History of Substance Use: reports: None - Smoking History Smoking history: Never smoked Have you smoked in the past 12 months: No Aproximately how many cigarettes per day: 0 - Social History Usual Living Arrangement: Alone ADL: Independent Occupation: retired teacher History of Recent Travel: No Home Medications - Allergies Allergies/Adverse Reactions: Allergies Allergy/AdvReac Type Severity Reaction Status Date / Time No Known Drug Allergies Allergy Verified 08/29/16 14:41 - Home Medications Home Medications: Ambulatory Orders Atorvastatin Ca [Lipitor] 80 mg PO HS 08/29/16 Carvedilol 25 mg PO BID 08/29/16 Citalopram Hydrobromide [Celexa -] 10 mg PO DAILY 08/29/16 Insulin (Novolog 70/30) [Novolog Mix 70/30 Flexpen -] 40 units SQ BIDAC Isosorbide Mononitrate [Isosorbide Mononitrate ER] 30 mg PO DAILY 08/29/16 Losartan Potassium 100 mg PO DAILY 07/07/17 Montelukast Na [Singulair -] 10 mg PO HS 08/29/16 Family Disease History - Family Disease History Family Disease History: Diabetes: Mother, Heart Disease: Father ( [place] age 56) , Mother, [place]: Sister ( uterine cancer) Review of Systems - Review of Systems Constitutional: reports: Malaise, Weakness Eyes: reports: No Symptoms HENT: reports: No Symptoms Neck: reports: No Symptoms Cardiovascular: reports: Shortness of Breath Respiratory: reports: Exercise Intolerance, SOB, SOB on Exertion Gastrointestinal: reports: Bloating, Constipation Genitourinary: reports: No Symptoms Musculoskeletal: reports: Muscle Pain, Muscle Cramps, Muscle Weakness Integumentary: reports: No Symptoms Neurological: reports: Unsteady Gait, Weakness Endocrine: reports: Unexplained Weight Gain Physical Exam Vital Signs: Vital Signs Temperature 98.0 F 09/01/16 15:46 Pulse Rate 70 09/01/16 15:46 Respiratory Rate 20 09/01/16 15:46 Blood Pressure 147/65 09/01/16 15:46 O2 Sat by Pulse Oximetry (%) 97 09/01/16 09:00 Constitutional: Yes: Anxious Eyes: Yes: EOM Intact HENT: Yes: Normocephalic Neck: Yes: Trachea Midline Cardiovascular: Yes: Regular Rate and Rhythm Respiratory: Yes: CTA Bilaterally Gastrointestinal: Yes: Hernia, Hypoactive Bowel Sounds, Tenderness, Epigastrium ...Rectal Exam: Yes: Deferred Renal/: Yes: WNL Musculoskeletal: Yes: Back Pain, Joint Swelling, Muscle Weakness Extremities: Yes: WNL Edema: No Integumentary: Yes: WNL Neurological: Yes: Alert, Oriented Labs: CBC, BMP 08/31/16 07:15 08/31/16 07:15 Problem List - Problems (1) Abdominal pain Code(s): R10.9 - UNSPECIFIED ABDOMINAL PAIN Qualifiers: Abdominal location: left lower quadrant Qualified Code(s): R10.32 - Left lower quadrant pain (2) Chronic kidney disease (CKD) Code(s): N18.9 - CHRONIC KIDNEY DISEASE, UNSPECIFIED Qualifiers: Chronic kidney disease stage: unspecified stage Qualified Code(s): N18.9 - Chronic kidney disease, unspecified (3) Incisional hernia without mention of obstruction or gangrene Code(s): K43.2 - INCISIONAL HERNIA WITHOUT OBSTRUCTION OR GANGRENE Qualifiers : Obstruction and gangrene presence: without obstruction or gangrene Qualified Code(s): K43.2 - Incisional hernia without obstruction or gangrene (4) Diabetes Code(s): E11.9 - TYPE 2 DIABETES MELLITUS WITHOUT COMPLICATIONS Qualifiers: Diabetes mellitus type: type 2 Diabetes mellitus complication status: with kidney complications Diabetes mellitus complication detail: with chronic kidney disease Diabetes mellitus [facility] insulin use: unspecified manager long term care insulin use status Chronic kidney disease stage: unspecified stage Qualified Code(s): E11.22 - Type 2 diabetes mellitus with diabetic chronic kidney disease; N18.1 - Chronic kidney disease, stage 1; Z79.4 - USP (current) use of insulin Assessment/Plan Current Active Problems Abdominal pain (Acute) Chest pain (Acute) Chronic kidney disease (CKD) (Acute) Elevated brain natriuretic peptide (BNP) level (Acute) Fever (Acute) Hip pain, left (Acute) Incisional hernia without mention of obstruction or gangrene (Acute) Status post myocardial infarction (Acute) UTI (urinary tract infection) (Acute) diabetes mellitus uncontrolled hyperglycemia gastroparesis Abnormal Lab Results 08/31/16 07:15 Triglycerides 303 H D Cholesterol 223 H D Total LDL Cholesterol 133 H Laboratory Results - last 24 hr 08/31/16 08/31/16 08/31/16 07:15 07:15 22:04 POC Glucometer 198 Iron 54 TIBC 350 Iron Saturation 15 Ferritin 62.963 Triglycerides 303 H D Cholesterol 223 H D Total LDL Cholesterol 133 H HDL Cholesterol 44 D 09/01/16 09/01/16 09/01/16 05:35 05:39 11:05 POC Glucometer 180 100 Iron TIBC Iron Saturation Ferritin Triglycerides Cancelled Cholesterol Cancelled Total LDL Cholesterol Cancelled HDL Cholesterol Cancelled 09/01/16 15:59 POC Glucometer 219 Iron TIBC Iron Saturation Ferritin Triglycerides Cholesterol Total LDL Cholesterol HDL Cholesterol plan: Current Medications Generic Name Dose Route Start Last Admin Trade Name Freq PRN Reason Stop Dose Admin Acetaminophen 650 mg 08/29/16 23:21 Tylenol - PO Q6H PRN FEVER OR PAIN Atorvastatin Calcium 80 mg 08/30/16 22:00 08/31/16 22:01 Lipitor - PO 80 mg HS JOS Administration Carvedilol 25 mg 08/30/16 10:00 09/01/16 11:07 Coreg - PO 25 mg BID JOS Administration Citalopram Hydrobromide 10 mg 08/30/16 10:00 09/01/16 11:07 Celexa - PO 10 mg DAILY JOS Administration Insulin Aspart 40 units 08/30/16 07:00 09/01/16 16:11 Novolog Mix 70/30 Vial SQ 40 units BIDAC JOS Administration Insulin Aspart 1 vial 09/01/16 07:00 09/01/16 16:07 Novolog Vial Sliding Scale - SQ 7 units ACHS JOS Administration Protocol Isosorbide Mononitrate 30 mg 08/30/16 10:00 09/01/16 11:06 Imdur - PO 30 mg DAILY JOS Administration Losartan Potassium 100 mg 08/30/16 10:00 09/01/16 11:06 Cozaar - PO 100 mg DAILY JOS Administration Montelukast Sodium 10 mg 08/30/16 22:00 08/31/16 22:01 Singulair - PO 10 mg HS JOS Administration Nifedipine 30 mg 08/31/16 10:33 09/01/16 11:07 Procardia Xl - PO 30 mg BID JOS Administration
[2016-09-01] MEDS: ATORVASTATIN CA 80 MG TABLET (FP) PO SCH (22:35)
[2016-09-01] MEDS: MONTELUKAST NA 10 MG TABLET PO SCH (22:41)
[2016-09-02 00:06] LABS: A/G RATIO 0.9 (0.7-1.7); ALBUMIN 2.9 g/dL (2.9-4.4); GLOBULIN, TOTAL 3.1 g/dL (2.2-3.9); M-SPIKE Not Observed g/dL (Not Observed)
[2016-09-02] MEDS: INSULIN (NOVOLOG MIX 70/30) 100 UNITS/ML MDV SQ SCH (06:43)
[2016-09-02] MEDS: INSULIN SLIDING SCALE (NOVOLOG) 1 VIAL SQ SCH ×2 (06:45→12:05)
[2016-09-02] MEDS ORDERED: INSULIN DETEMIR 100 UNITS/ML MDV SQ ONE ×2 (07:07→07:08)
[2016-09-02] MEDS ORDERED: PT OWN MED DRAWER 7, Y5N ONE ×2 (07:07→11:10)
[2016-09-02] MEDS ORDERED: INSULIN (NOVOLOG) ASPART 100 UNITS/ML 10ML VIAL ONE (07:07)
[2016-09-02] MEDS ORDERED: INSULIN (NOVOLOG MIX 70/30) 100 UNITS/ML MDV SQ ONE (07:07)
[2016-09-02 08:07] LABS: HEP B SURFACE AB Non Reactive (.)
[2016-09-02] MEDS: CARVEDILOL 25 MG TABLET (FP) PO SCH (11:12)
[2016-09-02] MEDS: CITALOPRAM HYDROBROMIDE 10 MG TABLET (FP) PO SCH (11:12)
[2016-09-02] MEDS: ISOSORBIDE MONONITRATE 30 MG TAB.SR.24H (FP) PO SCH (11:13)
[2016-09-02] MEDS: LOSARTAN POTASSIUM 50 MG TABLET (FP) PO SCH (11:13)
[2016-09-02] MEDS: NIFEdipine E.R. 30 MG TABLET (FP) PO SCH (11:14)
--- NOTE | 2016-09-02 12:23 | PN ---
Progress Note, Physician Chief Complaint: Pt feels better (stronger; no dyspnea or dizziness). History of Present Illness: Patient is a 70 year old female with a history of SD x3 s/p pacemaker and stenting, anemia, DM, HTN, CHF, and an abdominal hernia who presents with generalized weakness. Patient reports a general feeling of extreme fatigue and weakness over the past 3-4 days. She was evaluated by her PCP Dr. Bhardwaj yesterday and earlier this morning he called her to advise her to be evaluated in the ED. She states that she has had problems with weakness in the past usually requiring transfusion. She states that otherwise she is experiencing lower left quadrant abdominal pain that was going to get evaluated with ultrasound tomorrow. She endorses some chest tightness, but denies any chest pain, fevers, chills, SOB, or dysuria. - Current Medication List Current Medications: Active Medications Acetaminophen (Tylenol -) 650 mg PO Q6H PRN PRN Reason: FEVER OR PAIN Atorvastatin Calcium (Lipitor -) 80 mg PO HS [facility] Last Admin: 09/01/16 22:35 Dose: 80 mg Carvedilol (Coreg -) 25 mg PO BID [facility] Last Admin: 09/02/16 11:12 Dose: 25 mg Citalopram Hydrobromide (Celexa -) 10 mg PO DAILY [facility] Last Admin: 09/02/16 11:12 Dose: 10 mg Insulin Aspart (Novolog Mix 70/30 Vial) 40 units SQ BIDAC [facility] Last Admin: 09/02/16 06:43 Dose: 40 units Insulin Aspart (Novolog Vial Sliding Scale -) 1 vial SQ ACHS [facility] PRN Reason: Protocol Last Admin: 09/02/16 12:05 Dose: Not Given Isosorbide Mononitrate (Imdur -) 30 mg PO DAILY [facility] Last Admin: 09/02/16 11:13 Dose: 30 mg Losartan Potassium (Cozaar -) 100 mg PO DAILY [facility] Last Admin: 09/02/16 11:13 Dose: 100 mg Montelukast Sodium (Singulair -) 10 mg PO HS [facility] Last Admin: 09/01/16 22:41 Dose: 10 mg Nifedipine (Procardia Xl -) 30 mg PO BID [facility] Last Admin: 09/02/16 11:14 Dose: 30 mg - Objective Vital Signs: Vital Signs Temperature 98.2 F 09/02/16 06:00 Pulse Rate 74 09/02/16 06:00 Respiratory Rate 20 09/02/16 06:00 Blood Pressure 113/55 09/02/16 06:00 O2 Sat by Pulse Oximetry (%) 97 09/01/16 21:00 Constitutional: Yes: Calm Eyes: Yes: WNL HENT: Yes: WNL Neck: Yes: WNL Cardiovascular: Yes: Regular Rate and Rhythm Respiratory: Yes: Regular Gastrointestinal: Yes: Soft ...Rectal Exam: Yes: Deferred Genitourinary: No: Anuria Musculoskeletal: Yes: Muscle Weakness Extremities: Yes: WNL Edema: No Peripheral Pulses WNL: Yes Integumentary: Yes: WNL Neurological: Yes: Alert, Oriented, Weakness Psychiatric: Yes: Other (anxiety/depression) Labs: CBC, BMP 08/31/16 07:15 08/31/16 07:15 INR, PTT INR 1.00 (0.82-1.09) 08/29/16 18:20 Abnormal Lab Results 08/31/16 07:15 Hepatitis A Ab Total Positive H Hep B Core Total Ab Positive H Problem List - Problems (1) Status post myocardial infarction Assessment/Plan: SD several years ago-->multiple coronary stents; ICD. Continue ASA, metoprolol, losartan, Imdur. F/u lipids. The importance of following a heart-healthy diet, with better food choices, portion control, and exercise as aids to losing weight. However, pt has been talking for years about losing weight and joining a gym, neither of which she has done. Code(s): I25.2 - OLD MYOCARDIAL INFARCTION (2) Acute on chronic diastolic CHF (congestive heart failure) Code(s): I50.33 - ACUTE ON CHRONIC DIASTOLIC (CONGESTIVE) HEART FAILURE (3) Anemia Code(s): D64.9 - ANEMIA, UNSPECIFIED (4) CAD (coronary artery disease) Code(s): I25.10 - ATHSCL HEART DISEASE OF [place] CORONARY ARTERY W/O ANG PCTRS Qualifiers: Coronary Disease-Associated Artery/Lesion type: unspecified vessel or lesion type (5) Cardiac defibrillator in place Code(s): Z95.810 - PRESENCE OF AUTOMATIC (IMPLANTABLE) CARDIAC DEFIBRILLATOR (6) Depression Assessment/Plan: pt sees a psychologist, and was given medication by psychiatrist. Code(s): F32.9 - MAJOR DEPRESSIVE DISORDER, SINGLE EPISODE, UNSPECIFIED (7) Diabetes Code(s): E11.9 - TYPE 2 DIABETES MELLITUS WITHOUT COMPLICATIONS Qualifiers: Diabetes mellitus type: type 2 Diabetes mellitus complication status: with kidney complications Diabetes mellitus complication detail: with chronic kidney disease Diabetes mellitus termite control service representative insulin use: unspecified termite control service representative insulin use status Chronic kidney disease stage: unspecified stage Qualified Code(s): E11.22 - Type 2 diabetes mellitus with diabetic chronic kidney disease; N18.1 - Chronic kidney disease, stage 1; Z79.4 - [facility] (current) use of insulin (8) HTN (hypertension) Code(s): I10 - ESSENTIAL (PRIMARY) HYPERTENSION (9) Weakness Assessment/Plan: F/u orthostatic vital signs. The importance of increasing daily exercise and losing weight was again discussed in detail. As before, she speaks of joining a gym and of following a heart-healthy diet, but has had a difficult time doing either for years. Code(s): R53.1 - WEAKNESS (10) Renal insufficiency Code(s): N28.9 - DISORDER OF KIDNEY AND URETER, UNSPECIFIED
--- NOTE | 2016-09-02 13:19 | PN ---
Progress Note, Physician History of Present Illness: Pt seen and examined at bedside. She is awake and alert. She feels that her abdominal pain is improved. - Current Medication List Current Medications: Active Medications Acetaminophen (Tylenol -) 650 mg PO Q6H PRN PRN Reason: FEVER OR PAIN Atorvastatin Calcium (Lipitor -) 80 mg PO HS [facility] Last Admin: 09/01/16 22:35 Dose: 80 mg Carvedilol (Coreg -) 25 mg PO BID [facility] Last Admin: 09/02/16 11:12 Dose: 25 mg Citalopram Hydrobromide (Celexa -) 10 mg PO DAILY [facility] Last Admin: 09/02/16 11:12 Dose: 10 mg Insulin Aspart (Novolog Mix 70/30 Vial) 40 units SQ BIDAC [facility] Last Admin: 09/02/16 06:43 Dose: 40 units Insulin Aspart (Novolog Vial Sliding Scale -) 1 vial SQ ACHS [facility] PRN Reason: Protocol Last Admin: 09/02/16 12:05 Dose: Not Given Isosorbide Mononitrate (Imdur -) 30 mg PO DAILY [facility] Last Admin: 09/02/16 11:13 Dose: 30 mg Losartan Potassium (Cozaar -) 100 mg PO DAILY [facility] Last Admin: 09/02/16 11:13 Dose: 100 mg Montelukast Sodium (Singulair -) 10 mg PO HS [facility] Last Admin: 09/01/16 22:41 Dose: 10 mg Nifedipine (Procardia Xl -) 30 mg PO BID [facility] Last Admin: 09/02/16 11:14 Dose: 30 mg - Objective Vital Signs: Vital Signs Temperature 98.2 F 09/02/16 06:00 Pulse Rate 74 09/02/16 06:00 Respiratory Rate 20 09/02/16 06:00 Blood Pressure 113/55 09/02/16 06:00 O2 Sat by Pulse Oximetry (%) 97 09/01/16 21:00 Constitutional: Yes: Calm Eyes: Yes: Conjunctiva Clear HENT: Yes: Atraumatic Neck: Yes: Supple Cardiovascular: Yes: S1, S2 Respiratory: Yes: CTA Bilaterally Gastrointestinal: Yes: Normal Bowel Sounds, Soft Genitourinary: Yes: WNL Musculoskeletal: Yes: WNL Edema: No Neurological: Yes: Oriented Psychiatric: Yes: Oriented Labs: CBC, BMP 08/31/16 07:15 08/31/16 07:15 INR, PTT INR 1.00 (0.82-1.09) 08/29/16 18:20 Problem List - Problems (1) Abdominal pain Code(s): R10.9 - UNSPECIFIED ABDOMINAL PAIN Qualifiers: Abdominal location: left lower quadrant Qualified Code(s): R10.32 - Left lower quadrant pain (2) Chest pain Code(s): R07.9 - CHEST PAIN, UNSPECIFIED Qualifiers: Ischemic chest pain type: unspecified angina pectoris type (3) Chronic kidney disease (CKD) Code(s): N18.9 - CHRONIC KIDNEY DISEASE, UNSPECIFIED Qualifiers: Chronic kidney disease stage: unspecified stage Qualified Code(s): N18.9 - Chronic kidney disease, unspecified (4) Diabetes Code(s): E11.9 - TYPE 2 DIABETES MELLITUS WITHOUT COMPLICATIONS Qualifiers: Diabetes mellitus type: type 2 Diabetes mellitus complication status: with kidney complications Diabetes mellitus complication detail: with chronic kidney disease Diabetes mellitus nursing home insulin use: unspecified medical terminologist insulin use status Chronic kidney disease stage: unspecified stage Qualified Code(s): E11.22 - Type 2 diabetes mellitus with diabetic chronic kidney disease; N18.1 - Chronic kidney disease, stage 1; Z79.4 - [facility] (current) use of insulin (5) HTN (hypertension) Code(s): I10 - ESSENTIAL (PRIMARY) HYPERTENSION Assessment/Plan Current Medications Generic Name Dose Route Start Last Admin Trade Name Freq PRN Reason Stop Dose Admin Acetaminophen 650 mg 08/29/16 23:21 Tylenol - PO Q6H PRN FEVER OR PAIN Atorvastatin Calcium 80 mg 08/30/16 22:00 09/01/16 22:35 Lipitor - PO 80 mg HS JOS Administration Carvedilol 25 mg 08/30/16 10:00 09/02/16 11:12 Coreg - PO 25 mg BID JOS Administration Citalopram Hydrobromide 10 mg 08/30/16 10:00 09/02/16 11:12 Celexa - PO 10 mg DAILY JSO Administration Insulin Aspart 40 units 08/30/16 07:00 09/02/16 06:43 Novolog Mix 70/30 Vial SQ 40 units BIDAC JOS Administration Insulin Aspart 1 vial 09/01/16 07:00 09/02/16 12:05 Novolog Vial Sliding Scale - SQ Not Given ACHS JOS Protocol Isosorbide Mononitrate 30 mg 08/30/16 10:00 09/02/16 11:13 Imdur - PO 30 mg DAILY JOS Administration Losartan Potassium 100 mg 08/30/16 10:00 09/02/16 11:13 Cozaar - PO 100 mg DAILY JOS Administration Montelukast Sodium 10 mg 08/30/16 22:00 09/01/16 22:41 Singulair - PO 10 mg HS JOS Administration Nifedipine 30 mg 08/31/16 10:33 09/02/16 11:14 Procardia Xl - PO 30 mg BID JOS Administration Laboratory Tests 08/31/16 07:15 Hepatitis A Ab Total Positive H Hep Bs Antigen Negative Hep Bs Antibody Non reactive Hep B Core Total Ab Positive H Hepatitis C Antibody 0.2 Impression 1. CKD with an acute component 2. CAD 3. DM 4. asthma 5. hyperlipidemia 6. HTN 7. positive heb b core Plan - no new bmp - check bmp in am - outpt renal follow up - GI symptoms are improved - 08/29 urine culture appears contaminated
[2016-09-02 15:53] VITALS: BP 144/53; PULSE 71; TEMP 98.2
--- NOTE | 2016-09-02 15:58 | DS ---
Physical Examination Vital Signs: Vital Signs Temperature 98.2 F 09/02/16 15:49 Pulse Rate 71 09/02/16 15:49 Respiratory Rate 20 09/02/16 15:49 Blood Pressure 144/53 09/02/16 15:49 O2 Sat by Pulse Oximetry (%) 98 09/02/16 10:00 Findings/Remarks: awake alert cardiology reevalauted, cleared for dc Constitutional: Yes: No Distress Eyes: Yes: WNL HENT: Yes: WNL Neck: Yes: WNL Cardiovascular: Yes: WNL Respiratory: Yes: WNL Gastrointestinal: Yes: WNL Renal/: Yes: WNL Musculoskeletal: Yes: WNL Extremities: Yes: WNL Edema: No Peripheral Pulses WNL: Yes Integumentary: Yes: WNL Wound/Incision: Yes: Clean/Dry Neurological: Yes: WNL ...Motor Strength: WNL Psychiatric: Yes: WNL Labs: CBC, BMP 08/31/16 07:15 08/31/16 07:15 Discharge Summary Reason For Visit: UTI, CHRONIC KIDNEY DISEASE ABDOMINAL PAIN Current Active Problems Abdominal pain (Acute) Chest pain (Acute) Chronic kidney disease (CKD) (Acute) Elevated brain natriuretic peptide (BNP) level (Acute) Fever (Acute) Hip pain, left (Acute) Incisional hernia without mention of obstruction or gangrene (Acute) Status post myocardial infarction (Acute) UTI (urinary tract infection) (Acute) Procedures: Principal: ECHO Other Procedures: RENAL SONO Hospital Course: ADMITTED WITH ACUTE ON CHRONIC DIASTOLIC CHF, EF % REEVALUATED NORMAL, CARDIO EVAL AND WORKUP COMPLETED, ABD PAIN HERNIA OUT PATIENT SURGERY, F/U 1 WEEK WITH PMD Condition: Improved - Instructions Diet, Activity, Other Instructions: ADA/LOW SODIUM, LOW FAT SEE DR BHARDWAJ IN 3 WEEKS Referrals: Adeel Bhardwaj MD [Primary Care Provider] - Disposition: HOME - Home Medications Comprehensive Discharge Medication List: Ambulatory Orders Atorvastatin Ca [Lipitor] 80 mg PO HS 08/29/16 Carvedilol 25 mg PO BID 08/29/16 Citalopram Hydrobromide [Celexa -] 10 mg PO DAILY 08/29/16 Insulin (Novolog 70/30) [Novolog Mix 70/30 Flexpen -] 40 units SQ BIDAC Isosorbide Mononitrate [Isosorbide Mononitrate ER] 30 mg PO DAILY 08/29/16 Montelukast Na [Singulair -] 10 mg PO HS 08/29/16 Acetaminophen [Tylenol .Regular Strength -] 650 mg PO Q6H PRN #0 tablet Atorvastatin Ca [Lipitor] 80 mg PO HS tablet 09/02/16 Carvedilol [Coreg -] 25 mg PO BID tablet 09/02/16 Citalopram Hydrobromide [Celexa -] 10 mg PO DAILY tablet 09/02/16 Losartan Potassium [Cozaar -] 100 mg PO DAILY tablet 09/02/16 Montelukast Na [Singulair -] 10 mg PO HS tablet 09/02/16 Nifedipine ER [Procardia XL -] 30 mg PO BID #60 tab 09/02/16
--- NOTE | 2016-09-02 16:03 | CON.PULM ---
Consult Consult Specialty:: PULM/CCM Referred by:: IVANA Reason for Consultation:: OSAS - History of Present Illness Chief Complaint: SOB / Abdominal pain History of Present Illness: 70 F, well known to our service. COPD due to previous smoking history, [place] x3 s/ p pacemaker and stenting, anemia, DM, HTN, CHF, and abdominal hernia. Admitted due to generalized weakness and extreme fatigue and weakness over the past 3-4 days. Being worked up for abdominal pain as well. There was a high clinical suspicion for OSAS and a portable test was performed. Portable testing revealed Moderate OSAS with an RDI of 24 events per hour. - History Source History Provided By: Patient Limitations to Obtaining History: No Limitations - Past Medical History Cardio/Vascular: Yes: CAD (5 coronarty stents), CHF, HTN, Hyperlipdemia (CAD, CARDIOMYOPATHY(ISCHEMIC)), [place], Other (has a defibrillator) Pulmonary: Yes: Asthma Gastrointestinal: Yes: Hiatal Hernia Hepatobiliary: Yes: Other (fatty liver) Renal/: Yes: Renal Inusuff Psych: Yes: Anxiety, Depression Musculoskeletal: Yes: Chronic low back pain Endocrine: Yes: Diabetes Mellitus - Past Surgical History Past Surgical History: Yes: AICD, Breast Biopsy (benign right breast lesion excision), Cataract Removal (bilateral and retinal laser surgery), Colonoscopy, Hernia Repair (supraumbilical with mesh ~12 (?) yrs ago), Hysterectomy (APLMA for fibroids, ovaries are intact), Stent (5 coronary stents) - Alcohol/Substance Use Hx Alcohol Use: No History of Substance Use: reports: None - Smoking History Smoking history: Never smoked Have you smoked in the past 12 months: No Aproximately how many cigarettes per day: 0 - Social History Usual Living Arrangement: Alone ADL: Independent Occupation: retired teacher History of Recent Travel: No Home Medications - Allergies Allergies/Adverse Reactions: Allergies Allergy/AdvReac Type Severity Reaction Status Date / Time No Known Drug Allergies Allergy Verified 08/29/16 14:41 - Home Medications Home Medications: Ambulatory Orders Atorvastatin Ca [Lipitor] 80 mg PO HS 08/29/16 Carvedilol 25 mg PO BID 08/29/16 Citalopram Hydrobromide [Celexa -] 10 mg PO DAILY 08/29/16 Insulin (Novolog 70/30) [Novolog Mix 70/30 Flexpen -] 40 units SQ BIDAC Isosorbide Mononitrate [Isosorbide Mononitrate ER] 30 mg PO DAILY 08/29/16 Montelukast Na [Singulair -] 10 mg PO HS 08/29/16 Acetaminophen [Tylenol .Regular Strength -] 650 mg PO Q6H PRN #0 tablet Atorvastatin Ca [Lipitor] 80 mg PO HS tablet 09/02/16 Carvedilol [Coreg -] 25 mg PO BID tablet 09/02/16 Citalopram Hydrobromide [Celexa -] 10 mg PO DAILY tablet 09/02/16 Losartan Potassium [Cozaar -] 100 mg PO DAILY tablet 09/02/16 Montelukast Na [Singulair -] 10 mg PO HS tablet 09/02/16 Nifedipine ER [Procardia XL -] 30 mg PO BID #60 tab 09/02/16 Family Disease History - Family Disease History Family Disease History: Diabetes: Mother, Heart Disease: Father ( [place] age 56) , Mother, [place]: Sister ( uterine cancer) Review of Systems - Review of Systems Constitutional: reports: Lethargy, Malaise, Weakness. denies: Chills, Fever, Night Sweats, Unintentional Wgt. Loss Eyes: reports: No Symptoms HENT: reports: No Symptoms Neck: reports: No Symptoms Cardiovascular: reports: Shortness of Breath. denies: Chest Pain, Edema, Palpitations Respiratory: reports: Cough, Orthopnea, Snoring, SOB, SOB on Exertion. denies: Hemoptysis, Wheezing Gastrointestinal: reports: Abdominal Pain, Indigestion, Nausea. denies: Melena , Rectal Bleeding, Vomiting Blood Genitourinary: reports: No Symptoms Breasts: reports: No Symptoms Reported Musculoskeletal: reports: No Symptoms Integumentary: reports: No Symptoms Neurological: reports: No Symptoms Endocrine: reports: No Symptoms Hematology/Lymphatic: reports: No Symptoms Psychiatric: reports: No Symptoms Physical Exam Vital Sings: Vital Signs Temperature 98.2 F 09/02/16 15:49 Pulse Rate 71 09/02/16 15:49 Respiratory Rate 20 09/02/16 15:49 Blood Pressure 144/53 09/02/16 15:49 O2 Sat by Pulse Oximetry (%) 98 09/02/16 10:00 Constitutional: Yes: No Distress, Calm Eyes: Yes: Conjunctiva Clear, EOM Intact HENT: Yes: Atraumatic, Normocephalic Neck: Yes: Supple, Trachea Midline Cardiovascular: Yes: Regular Rate and Rhythm Respiratory: Yes: CTA Bilaterally ...Inspection: Yes: WNL ...Clubbing: No Gastrointestinal: Yes: Normal Bowel Sounds, Soft Renal/: Yes: WNL Musculoskeletal: Yes: WNL Extremities: Yes: WNL Edema: No Peripheral Pulses WNL: Yes Integumentary: Yes: WNL Neurological: Yes: Alert, Oriented ...Motor Strength: WNL Psychiatric: Yes: WNL, Alert, Oriented Labs: CBC, BMP 08/31/16 07:15 08/31/16 07:15 Imaging - Results Chest X-ray: Report Reviewed, Image Reviewed Problem List - Problems (1) Abdominal pain Code(s): R10.9 - UNSPECIFIED ABDOMINAL PAIN Qualifiers: Abdominal location: left lower quadrant Qualified Code(s): R10.32 - Left lower quadrant pain (2) Chronic kidney disease (CKD) Code(s): N18.9 - CHRONIC KIDNEY DISEASE, UNSPECIFIED Qualifiers: Chronic kidney disease stage: unspecified stage Qualified Code(s): N18.9 - Chronic kidney disease, unspecified (3) Incisional hernia without mention of obstruction or gangrene Code(s): K43.2 - INCISIONAL HERNIA WITHOUT OBSTRUCTION OR GANGRENE Qualifiers : Obstruction and gangrene presence: without obstruction or gangrene Qualified Code(s): K43.2 - Incisional hernia without obstruction or gangrene (4) Status post myocardial infarction Code(s): I25.2 - OLD MYOCARDIAL INFARCTION (5) Anemia Code(s): D64.9 - ANEMIA, UNSPECIFIED (6) Asthma Code(s): J45.909 - UNSPECIFIED ASTHMA, UNCOMPLICATED (7) CAD (coronary artery disease) Code(s): I25.10 - ATHSCL HEART DISEASE OF [place] CORONARY ARTERY W/O ANG PCTRS Qualifiers: Coronary Disease-Associated Artery/Lesion type: unspecified vessel or lesion type (8) CHF (congestive heart failure) Code(s): I50.9 - HEART FAILURE, UNSPECIFIED (9) Cardiac defibrillator in place Code(s): Z95.810 - PRESENCE OF AUTOMATIC (IMPLANTABLE) CARDIAC DEFIBRILLATOR (10) Depression Code(s): F32.9 - MAJOR DEPRESSIVE DISORDER, SINGLE EPISODE, UNSPECIFIED (11) Diabetes Code(s): E11.9 - TYPE 2 DIABETES MELLITUS WITHOUT COMPLICATIONS Qualifiers: Diabetes mellitus type: type 2 Diabetes mellitus complication status: with kidney complications Diabetes mellitus complication detail: with chronic kidney disease Diabetes mellitus senior living insulin use: unspecified emt intermediate insulin use status Chronic kidney disease stage: unspecified stage Qualified Code(s): E11.22 - Type 2 diabetes mellitus with diabetic chronic kidney disease; N18.1 - Chronic kidney disease, stage 1; Z79.4 - senior living (current) use of insulin (12) HTN (hypertension) Code(s): I10 - ESSENTIAL (PRIMARY) HYPERTENSION (13) Hypertriglyceridemia Code(s): E78.1 - PURE HYPERGLYCERIDEMIA (14) Insomnia Code(s): G47.00 - INSOMNIA, UNSPECIFIED (15) Obesity Code(s): E66.9 - OBESITY, UNSPECIFIED Qualifiers: Obesity type: due to excess calories Qualified Code(s): E66.09 - Other obesity due to excess calories; Z68.30 - Body mass index (BMI) 30.0-30.9, adult (16) Sleep apnea Code(s): G47.30 - SLEEP APNEA, UNSPECIFIED (17) Ventral hernia Code(s): K43.9 - VENTRAL HERNIA WITHOUT OBSTRUCTION OR GANGRENE Qualifiers: Obstruction and gangrene presence: without obstruction or gangrene Qualified Code(s): K43.9 - Ventral hernia without obstruction or gangrene Assessment/Plan PLAN: The patient will be given a copy of her report and follow with me or Dr Snyder to review treatment options. Given her significant cardiac history, CPAP would likely be the best choice. Weight loss to ideal body weight. Sleep hygiene No smoking No Pulmonary contraindication for D/C Thank you. Dr Mendez
[2016-09-03 08:07] LABS: ALPHA 2 MACROGLOBULINS,QN 267 mg/dL (110-276); BILIRUBIN TOTAL 0.1 mg/dL (0.0-1.2); GGT= 22 IU/L (0-60); GLUCOSE SERUM 133 mg/dL (65-99); HAPTOGLOBIN= 151 mg/dL (34-200); HEIGHT 66 Inches (.); TRIGLYCERIDES= 301 mg/dL (0-149)
== END 2016-09-02 17:46 | disposition home or self-care (01) | DRG 393 ==
LOC: JER 14:23 → J5S 22:51
PROVIDERS: ADMIT Family Medicine; ATTEND Family Medicine
DX: K43.2 Incisional hernia without obstruction or gangrene (principal); I50.33 Acute on chronic diastolic (congestive) heart failure; I13.0 Hypertensive heart and chronic kidney disease with heart failure and stage 1 through stage 4 chronic kidney disease, or unspecified chronic kidney disease; N17.9 Acute kidney failure, unspecified; N30.01 Acute cystitis with hematuria; E11.22 Type 2 diabetes mellitus with diabetic chronic kidney disease; E11.65 Type 2 diabetes mellitus with hyperglycemia; N18.1 Chronic kidney disease, stage 1; Z79.4 Long term (current) use of insulin; E11.43 Type 2 diabetes mellitus with diabetic autonomic (poly)neuropathy; K31.84 Gastroparesis; I25.10 Atherosclerotic heart disease of native coronary artery without angina pectoris; Z95.5 Presence of coronary angioplasty implant and graft; Z95.0 Presence of cardiac pacemaker; D64.9 Anemia, unspecified; F32.9 Major depressive disorder, single episode, unspecified; I25.2 Old myocardial infarction; D69.6 Thrombocytopenia, unspecified; G47.33 Obstructive sleep apnea (adult) (pediatric); E66.9 Obesity, unspecified; Z68.32 Body mass index [BMI] 32.0-32.9, adult; Z71.3 Dietary counseling and surveillance; G89.29 Other chronic pain; M54.5 Low back pain; I25.5 Ischemic cardiomyopathy; F41.9 Anxiety disorder, unspecified; K57.90 Diverticulosis of intestine, part unspecified, without perforation or abscess without bleeding; K76.0 Fatty (change of) liver, not elsewhere classified; M16.12 Unilateral primary osteoarthritis, left hip; R53.83 Other fatigue
CPT/HCPCS: 36415; 71020-TC; 73502-TC-LT; 74020-TC; 74176-TC; 76775-TC; 76856-TC; 80048; 80053; 80061; 80076; 81003; 81015; 82172; 82247; 82465; 82550; 82728; 82947; 82977; 83010; 83036; 83540; 83550; 83605; 83721; 83880; 83883; 84155; 84165; 84443; 84450; 84460; 84478; 84484; 85025; 85610; 85651; 85730; 86140; 86704; 86706; 86708; 86803; 86850; 86900; 86901; 87086; 87340; 93005; 93010; 93306-TC; 97116-GP; 97161-GP; 99285-25; Q9967

== ENCOUNTER 2016-10-28 10:23 | Emergency (ER) | payer OTHER, BC ==
[2016-10-28 10:36] VITALS: BMI 31.6
[2016-10-28 11:20] LABS: BASOPHIL 0.6 % (0-2.0); EOSINOPHIL 3.8 % (0-4.5); MCH 26.7 pg (25.7-33.7); MCHC 32.9 g/dl (32.0-36.0); MEAN CELL VOLUME 81.1 fl (80-96); MEAN PLT VOLUME 11.2 fl (7.5-11.1); NEUTROPHILS 64.8 % (42.8-82.8); PLATELET COUNT 109 K/MM3 (134-434); RDW 14.1 % (11.6-15.6); WHITE BLOOD COUNT 10.3 K/mm3 (4.0-10.0)
[2016-10-28] MEDS ORDERED: SODIUM CHLORIDE 1,000 ML IV STA (11:23)
[2016-10-28 11:37] LABS: ALBUMIN 2.9 g/dl (3.4-5.0); ANION GAP 11 (8-16); BILIRUBIN,TOTAL 0.3 mg/dL (0.2-1.0); CALCIUM 8.4 mg/dL (8.5-10.1); CO2 22 mmol/L (21-32); CREATININE 2.7 mg/dL (0.55-1.02); SGOT/AST 14 U/L (15-37); SGPT/ALT 27 U/L (12-78)
[2016-10-28 11:40] LABS: ALK PHOS 121 U/L (45-117); CPK 98 IU/L (26-192); TROPONIN I 0.04 ng/ml (0.00-0.05)
--- NOTE | 2016-10-28 11:42 | PDOC ---
History of Present Illness - General History Source: Patient - History of Present Illness Timing/Duration: 1 hour Associated Symptoms: denies: chest pain, fever/chills, headaches, loss of appetite, nausea/vomiting, shortness of breath, weakness <Irma Castle - Last Filed: 10/28/16 13:20> <Molly Chou - Last Filed: 11/01/16 09:28> - General Chief Complaint: Lightheaded Stated Complaint: DIZZINESS Time Seen by Provider: 10/28/16 10:41 Past History - Past Medical History Anemia: Yes Asthma: Yes Cardiac Disorders: Yes ([place] X 3, CAD, Pacemaker/Selene) CVA: No CHF: Yes (and pericardial effusion) Dementia: No Diabetes: Yes (BG 221 @0815 03/23/15) GI Disorders: Yes (ULCER,ESOPHAGITIS,HIATAL HERNIA) Disorders: Yes HTN: Yes Hypercholesterolemia: Yes Liver Disease: No Suicide Attempt (Hx): No Thyroid Disease: No - Surgical History Abdominal Surgery: Yes (ABD HERNIA REPAIR) Cardiac Surgery: Yes (STENT X5 , PACEMAKER/defibrilator) Orthopedic Surgery: Yes (left ankle fracture 2 chronic mild left ankle edema, unchanged with current) - Psycho/Social/Smoking Cessation Hx Anxiety: No Suicidal Ideation: No Smoking Status: No Smoking History: Never smoked Have you smoked in the past 12 months: No Number of Cigarettes Smoked Daily: 0 Information on smoking cessation initiated: No Hx Alcohol Use: No Drug/Substance Use Hx: No Substance Use Type: None Hx Substance Use Treatment: No <Irma Castle - Last Filed: 10/28/16 13:20> <Molly Chou - Last Filed: 11/01/16 09:28> - Past Medical History Allergies/Adverse Reactions: Allergies Allergy/AdvReac Type Severity Reaction Status Date / Time No Known Drug Allergies Allergy Verified 10/28/16 10:36 Home Medications: Ambulatory Orders Insulin (Novolog 70/30) [Novolog Mix 70/30 Flexpen -] 30 units SQ BIDAC Isosorbide Mononitrate [Isosorbide Mononitrate ER] 30 mg PO DAILY 08/29/16 Atorvastatin Ca [Lipitor] 80 mg PO HS tablet 09/02/16 Carvedilol [Coreg -] 25 mg PO BID tablet 09/02/16 Citalopram Hydrobromide [Celexa -] 10 mg PO DAILY tablet 09/02/16 Losartan Potassium [Cozaar -] 100 mg PO DAILY tablet 09/02/16 Montelukast Na [Singulair -] 10 mg PO HS tablet 09/02/16 Nifedipine ER [Procardia XL -] 30 mg PO BID #60 tab 09/02/16 Aspirin [ASA -] 81 mg PO DAILY 10/28/16 Liraglutide [Victoza -] 1.2 mg SQ DAILY 10/28/16 Review of Systems - Review of Systems Constitutional: No: Chills, Fever Respiratory: No: Cough, Shortness of Breath Cardiac (ROS): No: Chest Pain, Palpitations ABD/GI: No: Nausea, Vomiting Neurological: Yes: Dizziness. No: Headache <Irma Castle - Last Filed: 10/28/16 13:20> *Physical Exam - Vital Signs Last Vital Signs Temp Pulse Resp BP Pulse Ox 98.2 F 63 17 111/46 98 10/28/16 10:34 10/28/16 10:34 10/28/16 10:34 10/28/16 10:34 10/28/16 10:34 - Physical Exam General Appearance: Yes: Appropriately Dressed. No: Apparent Distress HEENT: positive: Normal Voice Neck: positive: Supple Respiratory/Chest: positive: Lungs Clear, Normal Breath Sounds. negative: Respiratory Distress Cardiovascular: positive: Regular Rate, S1, S2 Gastrointestinal/Abdominal: positive: Soft. negative: Tender Integumentary: positive: Dry, Warm Neurologic: positive: Fully Oriented, Alert, Normal Mood/Affect <Irma Castle - Last Filed: 10/28/16 13:20> - Vital Signs Last Vital Signs Temp Pulse Resp BP Pulse Ox 98 F 58 L 20 146/65 100 10/28/16 13:16 10/28/16 13:16 10/28/16 13:16 10/28/16 13:16 10/28/16 13:16 <Molly Chou - Last Filed: 11/01/16 09:28> Heart Score/ECG Review - ECG Intrepretation Comment:: 10/28/16 12:06 EKG w/ TWI in V4-6, similar to ekg 09/08 <Sandra CastleMartinNoemí - Last Filed: 10/28/16 13:20> ED Treatment Course - LABORATORY CBC & Chemistry Diagram: 10/28/16 11:00 10/28/16 11:00 - ADDITIONAL ORDERS Additional order review: 10/28/16 11:00 RBC 3.78 MCV 81.1 MCHC 32.9 RDW 14.1 MPV 11.2 H Neutrophils % 64.8 Lymphocytes % 24.8 Monocytes % 6.0 Eosinophils % 3.8 Basophils % 0.6 - RADIOLOGY Radiology Studies Ordered: Category Date Time Status CHEST X-RAY PORTABLE* [RAD] Stat Radiology 10/28/16 10:49 Ordered <Sandra CastleMartinNoemí - Last Filed: 10/28/16 13:20> - LABORATORY CBC & Chemistry Diagram: 10/28/16 11:00 10/28/16 11:00 - ADDITIONAL ORDERS Additional order review: 10/28/16 11:00 RBC 3.78 MCV 81.1 MCHC 32.9 RDW 14.1 MPV 11.2 H Neutrophils % 64.8 Lymphocytes % 24.8 Monocytes % 6.0 Eosinophils % 3.8 Basophils % 0.6 - Medications Given in the ED: ED Medications Discontinued Medications Generic Name Dose Route Start Last Admin Trade Name Freq PRN Reason Stop Dose Admin Sodium Chloride 1,000 mls @ 1,000 mls/hr 10/28/16 11:23 10/28/16 11:32 Normal Saline - IV 10/28/16 12:22 1,000 mls/hr ASDIR STA Administration <Molly Chou - Last Filed: 11/01/16 09:28> Medical Decision Making - Medical Decision Making 10/28/16 11:25 70 yo F, h/o IDDM, CKD, pacemaker, [place] x 3, s/p stent, CHF, COPD, here with dizziness. Pt c/o sensation of the room spinning upon standing up from a sitting position this am that has since improved. Pt states she only got 1 and 1 /2 hr sleep last night as she suffers from insomnia and only ate a hard boil egg this am. Did not check her FS this am. No LUND, blurry vision, n/v, focal weakness, CP or SOB see exam Transient vertigo Unclear source, ?hypoglycemia given hx, unlikely CVA or ACS Pt well conrad and stable w/ unremarkable exam -ekg/labs -reassess 10/28/16 11:47 BG 343. No gap. IVF in fluids. Cr 2.7 (baseline ~2). K 4.3. Will discuss disposition w/ PMD 10/28/16 12:[address] Bhardwaj and made Gordon aware of rising creatinine today. Agrees with IV hydration in ED. States if patient in stable condition, be discharged to follow up with Gordon in office tomorrow 10/28/16 12:09 10/28/16 13:21 Pt s/p IVF. Feels better and feels safe going home. Will f/u with her PMD tomorrow. Reasons to return d/w pt <Irma Castle - Last Filed: 10/28/16 13:20> *DC/Admit/Observation/Transfer <Irma Castle - Last Filed: 10/28/16 13:20> - Attestations Physician Attestion: I reviewed the case with the mid-level practitioner and agree with the mid- level practitioner's assessment, diagnosis and disposition. <Molly Chou - Last Filed: 11/01/16 09:28> Diagnosis at time of Disposition: Dizziness - Discharge Dispostion Disposition: HOME Condition at time of disposition: Improved - Referrals Referrals: Adeel Bhardwaj MD [Primary Care Provider] - - Patient Instructions Additional Instructions: Please follow up with Dr Bhardwaj tomorrow Return to ED for worsening of symptoms Print Language: LATVIAN
[2016-10-28 11:44] LABS: GLUCOSE,RANDOM 343 mg/dL (74-106)
--- NOTE | 2016-10-28 11:52 | EKG ---
Test Reason : Blood Pressure : / mmHG Vent. Rate : 060 BPM Atrial Rate : 060 BPM P-R Int : 206 ms QRS Dur : 116 ms QT Int : 470 ms P-R-T Axes : 023 012 124 degrees QTc Int : 470 ms NORMAL SINUS RHYTHM PROLONGED QT ABNORMAL ECG WHEN COMPARED WITH ECG OF 29-AUG-2016 17:14, NO SIGNIFICANT CHANGE WAS FOUND REPEAT EKG IF CLINICALLY INDICATED Confirmed by ELAN DAY MD ([id number]) on 10/28/2016 11:51:47 AM Referred By: Confirmed By:ELAN DAY MD
[2016-10-28 13:21] VITALS: BP 146/65; PULSE 58; TEMP 98
== END 2016-10-28 13:23 | disposition home or self-care (01) ==
LOC: JER 10:23
PROC: 3E0337Z Introduction of Electrolytic and Water Balance Substance into Peripheral Vein, Percutaneous Approach (ICD-10-PCS; principal; 2016-10-28)
DX: R42 Dizziness and giddiness (principal); J44.9 Chronic obstructive pulmonary disease, unspecified; Z95.5 Presence of coronary angioplasty implant and graft; I25.2 Old myocardial infarction; E78.00 Pure hypercholesterolemia, unspecified; Z95.0 Presence of cardiac pacemaker; D64.9 Anemia, unspecified
CPT/HCPCS: 36415; 71010-TC; 80053; 84484; 85025; 93005; 93010; 96360; 99284-25

== ENCOUNTER 2017-02-06 14:40 | Inpatient (IN) | payer OTHER, BC ==
--- NOTE | 2017-02-06 15:13 | PDOC ---
History of Present Illness - General Stated Complaint: NEAR SYNCOPE Time Seen by Provider: 02/06/17 15:12 History Source: Patient Past History - Past Medical History Allergies/Adverse Reactions: Allergies Allergy/AdvReac Type Severity Reaction Status Date / Time No Known Drug Allergies Allergy Verified 10/28/16 10:36 Home Medications: Ambulatory Orders Insulin (Novolog 70/30) [Novolog Mix 70/30 Flexpen -] 30 units SQ BIDAC Isosorbide Mononitrate [Isosorbide Mononitrate ER] 30 mg PO DAILY 08/29/16 Atorvastatin Ca [Lipitor] 80 mg PO HS tablet 09/02/16 Carvedilol [Coreg -] 25 mg PO BID tablet 09/02/16 Citalopram Hydrobromide [Celexa -] 10 mg PO DAILY tablet 09/02/16 Losartan Potassium [Cozaar -] 100 mg PO DAILY tablet 09/02/16 Montelukast Na [Singulair -] 10 mg PO HS tablet 09/02/16 Nifedipine ER [Procardia XL -] 30 mg PO BID #60 tab 09/02/16 Aspirin [ASA -] 81 mg PO DAILY 10/28/16 Liraglutide [Victoza -] 1.2 mg SQ DAILY 10/28/16 Anemia: Yes Asthma: Yes Cardiac Disorders: Yes ([place] X 3, CAD, Pacemaker/Selene) CVA: No CHF: Yes (and pericardial effusion) Dementia: No Diabetes: Yes (BGM 221 @0815 03/23/15) GI Disorders: Yes (ULCER,ESOPHAGITIS,HIATAL HERNIA) Disorders: Yes HTN: Yes Hypercholesterolemia: Yes Liver Disease: No Thyroid Disease: No - Surgical History Abdominal Surgery: Yes (ABD HERNIA REPAIR) Cardiac Surgery: Yes (STENT X5 , PACEMAKER/defibrilator) Orthopedic Surgery: Yes (left ankle fracture 2 chronic mild left ankle edema, unchanged with current) - Suicide/Smoking/Psychosocial Hx Smoking Status: No Smoking History: Never smoked Have you smoked in the past 12 months: No Number of Cigarettes Smoked Daily: 0 Hx Alcohol Use: No Drug/Substance Use Hx: No Substance Use Type: None Hx Substance Use Treatment: No *Physical Exam - Vital Signs Last Vital Signs Temp Pulse Resp BP Pulse Ox 87 18 96/65 98 02/06/17 14:44 02/06/17 14:44 02/06/17 14:44 02/06/17 14:44
[2017-02-06] MEDS ORDERED: POTASSIUM CHLORIDE ORAL LIQUID 20 MEQ/15 ML PO ONE (15:58)
--- NOTE | 2017-02-06 15:58 | PDOC ---
History of Present Illness - General Chief Complaint: Syncope/Near Syncope Stated Complaint: NEAR SYNCOPE Time Seen by Provider: 02/06/17 15:12 History Source: Patient Exam Limitations: No Limitations - History of Present Illness Initial Comments: This is a 71 YOF with h/o HTN, CKD stage III, pacemaker use, IDDM, asthma, and CAD with MIx2 and stenting x5 who presents with near-syncope at her doctor's office (Dr. Snyder). She describes feeling mildly lightheaded while sitting in the waiting room at her doctor's office, then after standing up to walk across the room she became severely lightheaded and almost fainted. Her family members were holding her arms and helped her to the ground. She denies having lost consciousness, hit her head, or suffered any additional injuries. She also denies any preceding or subsequent chest pain, palpitations, SOB, fever, chills , nausea, vomiting, or diarrhea. She has had a mild cough/congestion/URI type illness lately. She has had episodes of syncope in the past and had her pacemaker placed for this reason. She had been scheduled for a pacemaker interrogation about a week and a half ago but the [employer] sales representative was not there and this needed to be rescheduled. Past History - Past Medical History Allergies/Adverse Reactions: Allergies Allergy/AdvReac Type Severity Reaction Status Date / Time No Known Drug Allergies Allergy Verified 02/06/17 15:18 Home Medications: Ambulatory Orders Insulin (Novolog 70/30) [Novolog Mix 70/30 Flexpen -] 30 units SQ BIDAC Isosorbide Mononitrate [Isosorbide Mononitrate ER] 30 mg PO DAILY 08/29/16 Atorvastatin Ca [Lipitor] 80 mg PO HS tablet 09/02/16 Carvedilol [Coreg -] 25 mg PO BID tablet 09/02/16 Citalopram Hydrobromide [Celexa -] 10 mg PO DAILY tablet 09/02/16 Losartan Potassium [Cozaar -] 100 mg PO DAILY tablet 09/02/16 Montelukast Na [Singulair -] 10 mg PO HS tablet 09/02/16 Nifedipine ER [Procardia XL -] 30 mg PO BID #60 tab 09/02/16 Aspirin [ASA -] 81 mg PO DAILY 10/28/16 Liraglutide [Victoza -] 1.2 mg SQ DAILY 10/28/16 Anemia: Yes Asthma: Yes Cardiac Disorders: Yes ([place] X 3, CAD, Pacemaker/[facility]ene) CVA: No CHF: Yes (and pericardial effusion) Dementia: No Diabetes: Yes (BGM 221 @0815 03/23/15) GI Disorders: Yes (ULCER,ESOPHAGITIS,HIATAL HERNIA) Disorders: Yes HTN: Yes Hypercholesterolemia: Yes Liver Disease: No Thyroid Disease: No - Surgical History Abdominal Surgery: Yes (ABD HERNIA REPAIR) Cardiac Surgery: Yes (STENT X5 , PACEMAKER/defibrilator) Orthopedic Surgery: Yes (left ankle fracture 2 chronic mild left ankle edema, unchanged with current) - Suicide/Smoking/Psychosocial Hx Smoking Status: No Smoking History: Never smoked Have you smoked in the past 12 months: No Number of Cigarettes Smoked Daily: 0 Hx Alcohol Use: No Drug/Substance Use Hx: No Substance Use Type: None Hx Substance Use Treatment: No Cardiac Specific PMH - Complaint Specific PMHX Pacemaker: Yes ([facility]) Review of Systems - Review of Systems Able to Perform ROS?: Yes Constitutional: No: Chills, Fever, Unexplained wgt Loss HEENTM: No: Nose Congestion, Throat Pain Respiratory: Yes: Other (chest congestion). No: Shortness of Breath Cardiac (ROS): Yes: Syncope, Other (near syncope). No: Chest Pain, Palpitations ABD/GI: No: Constipated, Diarrhea, Nausea, Vomiting : No: Burning, Dysuria Musculoskeletal: No: Back Pain, Neck Pain Integumentary: No: Bruising, Rash Neurological: No: Headache, Numbness, Tingling, Weakness, Dizziness Endocrine: No: Unexplained Weight Gain, Unexplained Weight Loss *Physical Exam - Vital Signs Last Vital Signs Temp Pulse Resp BP Pulse Ox 97.9 F 76 20 132/57 99 02/07/17 07:32 02/07/17 07:32 02/07/17 07:32 02/07/17 07:32 02/07/17 07:30 - Physical Exam General Appearance: Yes: Nourished, Appropriately Dressed, Other (pleasant older female in no distress, wearing sunglasses and states the fluorescent lights bother her eyes, family at bedside who are supportive). 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 negative: Scleral Icterus (R), Scleral Icterus (L), Nasal Congestion Neck: positive: Trachea midline, Supple. negative: Tender, Rigid Respiratory/Chest: positive: Lungs Clear, Normal Breath Sounds. negative: Respiratory Distress, Crackles, Rhonchi, Stridor, Wheezing Cardiovascular: positive: Regular Rhythm, Regular Rate. negative: Murmur Gastrointestinal/Abdominal: positive: Normal Bowel Sounds, Soft. negative: Tender, Organomegaly, Pulsatile Mass, Guarding Musculoskeletal: positive: Normal Inspection. negative: Decreased Range of Motion, Vertebral Tenderness Extremity: positive: Normal Capillary Refill, Normal Inspection, Normal Range of Motion. negative: Tender, Cyanosis Integumentary: positive: Normal Color, Dry, Warm. negative: Erythema, Rash, Bruising Neurologic: positive: fur pointer II-XII NML intact, Fully Oriented, Alert, Normal Mood/ Affect, Normal Response, Motor Strength / ED Treatment Course - LABORATORY CBC & Chemistry Diagram: 02/07/17 05:05 02/07/17 05:05 - ADDITIONAL ORDERS Additional order review: 02/06/17 15:58 RBC 3.90 MCV 82.1 MCHC 32.6 RDW 13.6 MPV 11.3 H Neutrophils % 66.7 Lymphocytes % 21.4 Monocytes % 8.4 Eosinophils % 2.9 Basophils % 0.6 - RADIOLOGY Radiology Studies Ordered: Category Date Time Status CHEST PA & LAT [RAD] Stat Radiology 02/06/17 16:12 Completed - Medications Given in the ED: ED Medications Discontinued Medications Generic Name Dose Route Start Last Admin Trade Name Esdrasq PRN Reason Stop Dose Admin Aspirin 81 mg 02/07/17 10:00 02/07/17 09:49 Ecotrin - PO 81 mg DAILY JOS Administration Atorvastatin Calcium 80 mg 02/06/17 23:45 02/06/17 23:57 Lipitor - PO 80 mg HS JOS Administration Carvedilol 25 mg 02/06/17 23:45 02/07/17 09:49 Coreg - PO 25 mg BID JOS Administration Citalopram Hydrobromide 20 mg 02/07/17 10:00 02/07/17 09:49 Celexa - PO 20 mg DAILY JOS Administration Insulin Aspart 30 units 02/07/17 07:00 02/07/17 06:53 Novolog Mix 70/30 Vial SQ 30 units BIDAC JOS Administration Insulin Aspart 1 vial 02/07/17 07:00 02/07/17 11:01 Novolog Vial Sliding Scale - SQ 4 units ACHS JOS Administration Protocol Isosorbide Mononitrate 30 mg 02/07/17 10:00 02/07/17 09:49 Imdur - PO 30 mg DAILY JOS Administration Losartan Potassium 50 mg 02/07/17 10:00 02/07/17 09:49 Cozaar - PO 50 mg DAILY JOS Administration Montelukast Sodium 10 mg 02/06/17 23:45 02/06/17 23:59 Singulair - PO 10 mg HS JOS Administration Nifedipine 30 mg 02/06/17 23:45 02/07/17 09:49 Procardia Xl - PO 30 mg BID JOS Administration Potassium Chloride 40 meq 02/06/17 15:58 02/06/17 16:31 Potassium Chloride Oral Liquid PO 02/06/17 15:59 Not Given ONCE ONE Sodium Chloride 500 ml 02/06/17 17:01 02/06/17 18:38 Normal Saline - IV 02/06/17 17:02 Not Given ONCE ONE Medical Decision Making - Medical Decision Making 71 YOF with h/o CHF, CAD s/p MIx2 and stenting x5, CKD stage 3, IDDM, and asthma who p/w near-syncope. Sounds at least partly orthostatic as the patient's symptoms started just after standing, and she has soft pressures. On exam VS with BP 96/65, patient is in no distress, neuro exam wnl, gait not initially tested but no truncal ataxia. 02/06/17 17:09 EKG with NSR rate of 67 with flipped t waves in I, aVL, V4-6 which are all old. BNP is <21k but additional cardiac panel is negative for ACS. 02/06/17 17:46 Called [facility] (formerly [facility] [facility]) and the [place] rep relocation associate is being forwarded the info about the patient for urgent interrogation. 02/06/17 18:00 Spoke with Maggi who is driving to [facility] from the [facility] and will be here to interrogate the pacemaker Patient is admitted to inpatient telemetry. Care signed out to Dr. Arteaga at the end of my shift. *DC/Admit/Observation/Transfer Diagnosis at time of Disposition: CHF (congestive heart failure), Chronic kidney disease, Near syncope - Discharge Dispostion Disposition: HOME Condition at time of disposition: Improved Admit: Yes - Referrals - Patient Instructions - Post Discharge Activity
[2017-02-06 16:05] LABS: BASO % 0.6 % (0-2.0); EOS % 2.9 % (0-4.5); MCH 26.7 pg (25.7-33.7); MCHC 32.6 g/dl (32.0-36.0); MEAN CELL VOLUME 82.1 fl (80-96); NEUT % 66.7 % (42.8-82.8); RDW 13.6 % (11.6-15.6)
--- NOTE | 2017-02-06 16:05 | PDOC ---
Attending Attestation - Resident Resident Name: Kath Leyva - ED Attending Attestation I have performed the following: I have examined & evaluated the patient, The case was reviewed & discussed with the resident, I agree w/resident's findings & plan, Exceptions are as noted - HPI HPI: 02/06/17 16:03 71y hx of htn, ckd, s/p pm, iddm, asthma, cad s/p [place] x 2/stents x 5 presents with episode of feeling lightheadedness when standing and walking at her doctors office, no formal lOC/falls. pt also with recent URI symptoms, denies any cp, palpitations, sob, f/c, cough. no recent med changes. pt notes that she has been feeling lightheaded for hte past 2 days, worse when she is standing/ walking around, but sometimes gets it when she is relaxing. General: NAD, well nourished Cardiac: rrr, no m/r/g Pulm: cta b/l abd: reducible ventral hernia, soft, no tenderness LE: No edema Differntial for the pts presyncope includes anemia, metabolic derangement, acs, dehydration, orthostasis yasmani give fluids for gentle hydration pts bp noted low at 90s/60s - lower than his baseline will likely admit the pt for further management / observation to evaluate for cause of bp Heart Score/ECG Review - ECG Impressions Comment:: 02/06/17 17:12 Twelve-lead EKG was performed and reviewed by me. There is normal sinus rhythm with a normal rate. Rate of 67 The axis is normal. The intervals are normal. Q waves in lead 3 T wave inversions in the lateral leads, no significant change when compared with previous
[2017-02-06 16:41] LABS: ALBUMIN 2.9 g/dl (3.4-5.0); ALK PHOS 119 U/L (45-117); ANION GAP 9 (8-16); BILIRUBIN,TOTAL 0.2 mg/dL (0.2-1.0); CALCIUM 8.6 mg/dL (8.5-10.1); CO2 25 mmol/L (21-32); CREATININE 2.8 mg/dL (0.55-1.02); GLUCOSE,RANDOM 174 mg/dL (74-106); SGOT/AST 15 U/L (15-37); SGPT/ALT 28 U/L (12-78); TOT PROT 6.3 g/dl (6.4-8.2)
[2017-02-06] MEDS ORDERED: SODIUM CHLORIDE 0.9% 1000 ML INFUS.BAG IV ONE (17:01)
[2017-02-06 17:02] LABS: MAGNESIUM 1.7 mg/dL (1.8-2.4); PHOSPHOROUS 2.6 mg/dL (2.5-4.9)
[2017-02-06 17:06] LABS: TROPONIN I 0.03 ng/ml (0.00-0.05)
[2017-02-06 17:55] LABS: MEAN PLT VOLUME 11.3 fl (7.5-11.1); PLATELET COUNT 125 K/MM3 (134-434); PLATELET ESTIMATE SLT DECREASE
[2017-02-06] MEDS ORDERED: ACETAMINOPHEN 325 MG TABLET (FP) PO PRN (23:31)
[2017-02-06] MEDS ORDERED: MONTELUKAST NA 10 MG TABLET PO SCH (23:45)
[2017-02-06] MEDS ORDERED: ATORVASTATIN CA 80 MG TABLET (FP) PO SCH (23:45)
[2017-02-06] MEDS: INSULIN SLIDING SCALE (NOVOLOG) 1 VIAL SQ SCH (23:57)
[2017-02-06] MEDS: CARVEDILOL 25 MG TABLET (FP) PO SCH (23:57)
[2017-02-06] MEDS: NIFEdipine E.R. 30 MG TABLET (FP) PO SCH (23:57)
[2017-02-07 00:49] VITALS: BMI 29.7
[2017-02-07] MEDS: INSULIN SLIDING SCALE (NOVOLOG) 1 VIAL SQ SCH ×2 (06:53→11:01)
[2017-02-07] MEDS ORDERED: INSULIN (NOVOLOG MIX 70/30) 100 UNITS/ML MDV SQ SCH (07:00)
[2017-02-07 07:05] LABS: MCH 26.4 pg (25.7-33.7); MCHC 32.5 g/dl (32.0-36.0); MEAN CELL VOLUME 81.4 fl (80-96); MEAN PLT VOLUME 11.4 fl (7.5-11.1); PLATELET COUNT 103 K/MM3 (134-434); RDW 13.4 % (11.6-15.6); WHITE BLOOD COUNT 9.6 K/mm3 (4.0-10.0)
--- NOTE | 2017-02-07 07:17 | CON.CARD ---
Consult Consult Specialty:: Cardiology for Dr. Jones Referred by:: ER Reason for Consultation:: Lightheadedness, near syncope - History of Present Illness Chief Complaint: Lightheadedness, near syncope History of Present Illness: 71 year old woman with a history of HTN, HLD, DMII, obesity, CAD with reported ID x 3, multiple prior PCI with stents, Ischemic cardiomyopathy with severe LV systolic dysfunction in the past, chronic systolic CHF, s/p ICD, recurrent anemia, depression, admitted with episode of lightheadedness and near syncope. Pt seen and examined today in nad. she states she is feeling well and wants to go home. states she was walking around this am and feels well. States she has felt like she had a URI coming on the past few days, yesterday while in Dr. Sky office felt lightheaded and nearly lost consciousness, found to have low normal BP. Denies any chest pain, sob, palpitations. No pnd, orthopnea, or LE edema. - History Source History Provided By: Patient, Medical Record Limitations to Obtaining History: No Limitations - Past Medical History Cardio/Vascular: Yes: CAD (5 coronarty stents), CHF, HTN, Hyperlipdemia (CAD, CARDIOMYOPATHY(ISCHEMIC)), ID, Other (has a defibrillator) Pulmonary: Yes: Asthma Gastrointestinal: Yes: Hiatal Hernia Hepatobiliary: Yes: Other (fatty liver) Renal/: Yes: Renal Inusuff Psych: Yes: Anxiety, Depression Musculoskeletal: Yes: Chronic low back pain Endocrine: Yes: Diabetes Mellitus - Past Surgical History Past Surgical History: Yes: AICD, Breast Biopsy (benign right breast lesion excision), Cataract Removal (bilateral and retinal laser surgery), Colonoscopy, Hernia Repair (supraumbilical with mesh ~12 (?) yrs ago), Hysterectomy (PALMA for fibroids, ovaries are intact), Stent (5 coronary stents) - Alcohol/Substance Use Hx Alcohol Use: No History of Substance Use: reports: None - Smoking History Smoking history: Never smoked Have you smoked in the past 12 months: No Aproximately how many cigarettes per day: 0 - Social History Usual Living Arrangement: Alone ADL: Independent Occupation: retired teacher History of Recent Travel: No Home Medications - Allergies Allergies/Adverse Reactions: Allergies Allergy/AdvReac Type Severity Reaction Status Date / Time No Known Drug Allergies Allergy Verified 02/06/17 15:18 - Home Medications Home Medications: Ambulatory Orders Insulin (Novolog 70/30) [Novolog Mix 70/30 Flexpen -] 30 units SQ BIDAC Isosorbide Mononitrate [Isosorbide Mononitrate ER] 30 mg PO DAILY 08/29/16 Atorvastatin Ca [Lipitor] 80 mg PO HS tablet 09/02/16 Carvedilol [Coreg -] 25 mg PO BID tablet 09/02/16 Citalopram Hydrobromide [Celexa -] 10 mg PO DAILY tablet 09/02/16 Losartan Potassium [Cozaar -] 100 mg PO DAILY tablet 09/02/16 Montelukast Na [Singulair -] 10 mg PO HS tablet 09/02/16 Nifedipine ER [Procardia XL -] 30 mg PO BID #60 tab 09/02/16 Aspirin [ASA -] 81 mg PO DAILY 10/28/16 Liraglutide [Victoza -] 1.2 mg SQ DAILY 10/28/16 Family Disease History - Family Disease History Family Disease History: Diabetes: Mother, Heart Disease: Father ( [place] age 56) , Mother, CA: Sister ( uterine cancer) Review of Systems - Review of Systems Constitutional: denies: No Symptoms, Chills, Diaphoresis, Fever, Lethargy, Loss of Appetite, Malaise, Night Sweats, Unintentional Wgt. Loss, Weakness, Other Eyes: denies: No Symptoms, Blind Spots, Blurred Vision, Double Vision, Eye Pain , Floaters, Photophobia, Recent Change in Vision, Other HENT: denies: No Symptoms, Difficult Swallowing, Ear Discharge, Ear Pain, Epistaxis, Gingival Bleeding, Hearing Loss, Mouth Swelling, Nasal Congestion, Ocular Prosthesis, Throat Pain, Toothache, Ringing in Ears, Other Neck: denies: No Symptoms, Decreased ROM, Lumps, Pain on Movement, Stiffness, Swollen Glands, Tenderness, Other Cardiovascular: denies: No Symptoms, Chest Pain, Edema, Palpitations, Shortness of Breath, Other Respiratory: denies: No Symptoms, Cough, Exercise Intolerance, Hemoptysis, Orthopnea, PND, Snoring, SOB, SOB on Exertion, Wheezing, Other Gastrointestinal: denies: No Symptoms, Abdominal Pain, Bloating, Constipation, Diarrhea, Dysphagia, Indigestion, Melena, Nausea, Rectal Bleeding, Vomiting, Vomiting Blood, Other Genitourinary: denies: No Symptoms, Burning, Discharge, Dysuria, Flank Pain, Frequency, Hematuria, Incontinence, Lesions, Menses, Pain, Testicular Mass, Testicular Pain, Testicular Swelling, Urgency, Vaginal Bleeding, Other Breasts: denies: No Symptoms Reported, See HPI, Breast Implants, Discharge from Nipple, Lumps, Pain, Skin Changes, Other Musculoskeletal: denies: No Symptoms, Back Pain, Crepitus, Decreased ROM, Extremity Pain, Joint Pain, Joint Swelling, Muscle Pain, Muscle Cramps, Muscle Weakness, Other Integumentary: denies: No Symptoms, Blister, Bruising, Change in Color, Eczema, Erythema, Incision, Lesions, Lump, Pallor, Pruritis, Rash, Wound, Other Neurological: reports: Dizziness. denies: No Symptoms, Change in LOC, Change in Speech, Confusion, Headache, Incoordination, Numbness, Parasthesia, Pre- Existing Deficit, Seizure, Syncope, Tremors, Unsteady Gait, Weakness, Other Endocrine: denies: No Symptoms, Excessive Sweating, Flushing, Increased Hunger, Increased Thirst, Intolerance to Cold, Intolerance to Heat, Unexplained Weight Gain, Unexplained Weight Loss, Other Hematology/Lymphatic: denies: No Symptoms, Easily Bruised, Excessive Bleeding, Swollen Glands, Other Psychiatric: denies: No Symptoms, Altered Sleep Pattern, Anxiety, Depression, Hallucinations, Panic, Paranoia, Suicidal, Other - Risk Factors Known Risk Factors: Yes: Hypercholesterolemia, Hypertension, Prior ID /Emb Stroke Vital Signs: Vital Signs Temperature 97.6 F 02/07/17 06:00 Pulse Rate 74 02/07/17 06:00 Respiratory Rate 20 02/07/17 06:00 Blood Pressure 135/55 02/07/17 06:00 O2 Sat by Pulse Oximetry (%) 99 02/06/17 23:28 Constitutional: Yes: Well Nourished, No Distress, Calm Eyes: Yes: WNL, Conjunctiva Clear, EOM Intact, PERRL HENT: Yes: WNL, Atraumatic, Normocephalic Neck: Yes: WNL, Supple, Trachea Midline Respiratory: Yes: WNL, Regular, CTA Bilaterally. No: Rales, Rhonchi, Wheezes Gastrointestinal: Yes: WNL, Normal Bowel Sounds, Soft. No: Distention, Tenderness Renal/: Yes: WNL Cardiovascular: Yes: WNL, Regular Rate and Rhythm. No: Bradycardia, Tachycardia , Pulse Irregular, Gallop, Rub, Varicosities JVD: No Carotid Bruit: No PMI: Non-Displaced Heart Sounds: Yes: S1, S2. No: Split S2, S3, S4, Clicks, Gallop, Rub, Bruit Murmur: No: Systolic Murmur, Diastolic Murmur, Grade 1, Grade 2, Grade 3, Grade 4, Grade 5, Grade 6 Musculoskeletal: Yes: WNL Extremities: Yes: WNL Edema: No Peripheral Pulses WNL: Yes Peripheral Pulses: 2+ Left Doralis Pedis, 2+ Right Dorsalis Pedis Integumentary: Yes: WNL Neurological: Yes: WNL, Alert, Oriented, Cran Nerves II-XII Intact ...Motor Strength: WNL Psychiatric: Yes: WNL, Alert, Oriented - Other Data Labs, Other Data: CBC, BMP 02/07/17 05:05 Troponin, BNP 02/06/17 16:00 Troponin I 0.03 B-Natriuretic Peptide 96340.16 H Troponin, BNP 02/06/17 16:00 Troponin I 0.03 B-Natriuretic Peptide 26992.16 H ekg-not in chart, reported by er as NSR, T inversions unchanged from past ekgs Echo: Report Reviewed Prior Cardiac Procedures: CABG, Cardiac Catheterization, PTCA with Stent Imaging - Results Chest X-ray: Report Reviewed, Image Reviewed EKG: Report Reviewed, Image Reviewed Other: Report Reviewed, Image Reviewed (tele-nsr, no arrhythmias recorded) Assessment/Plan 71 year old woman with a history of HTN, HLD, DMII, obesity, CAD with reported ID x 3, multiple prior PCI with stents, Ischemic cardiomyopathy with severe LV systolic dysfunction in the past, chronic systolic CHF, s/p ICD, recurrent anemia, depression, admitted with episode of lightheadedness and near syncope. Pt seen and examined today in nad. she states she is feeling well and wants to go home. states she was walking around this am and feels well. States she has felt like she had a URI coming on the past few days, yesterday while in Dr. Sky office felt lightheaded and nearly lost consciousness, found to have low normal BP. Denies any chest pain, sob, palpitations. No pnd, orthopnea, or LE edema. Lightheadedness/Near syncope-uncertain etiology, possibly related to URI, possible orthostatic hypotension -ICD interrogated by [facility] [facility] last night, no arrhythmias recorded -no arrhythmias on telemetry overnight -symptoms have not recurred -BP back to wnl -check orthostatic BP, received IVF hydration in ER -cardiac enzymes wnl x1, would repeat 2nd set -pt has been ambulatory this am, no additional inpatient cardiac work up needed at this point, would be acceptable for discharge from cardiac standpoint if orthostatic BP wnl and if cardiac enzymes wnl -close outpatient f/up with Dr. Jones CHF-ischemic cardiomyopathy with chronic systolic CHF, h/o severe LV systolic dysfunction s/p ICD, last echo here 07/2015 showed overall normal EF with mild inferolateral hypokinesis, unknown if more recent echo done in outpatient setting -clinically euvolemic with clear lungs and no edema and no reported SOB/hart, despite elevated BNP -cardiac enzymes wnl -cont home CHF meds Coreg, Losartan, Imdur CAD-history as above -no chest pain, aside from chronic atypical chest pain -no sob -cardiac enzymes wnl -cont coreg, losartan, imdur, lipitor, ASA HTN-low normal on admission -received IVF -now bp wnl -check orthostatic bp as above
[2017-02-07 07:31] LABS: ALBUMIN 2.6 g/dl (3.4-5.0); ALK PHOS 106 U/L (45-117); ANION GAP 7 (8-16); BILIRUBIN,TOTAL 0.3 mg/dL (0.2-1.0); CALCIUM 8.1 mg/dL (8.5-10.1); CHOLESTEROL 148 mg/dL (50-200); CO2 25 mmol/L (21-32); CREATININE 2.7 mg/dL (0.55-1.02); GLUCOSE,RANDOM 135 mg/dL (74-106); SGOT/AST 15 U/L (15-37); SGPT/ALT 26 U/L (12-78); TOT PROT 5.7 g/dl (6.4-8.2)
[2017-02-07 07:34] VITALS: BP 132/57; PULSE 76; TEMP 97.9
[2017-02-07 09:28] LABS: URINE APPEARANCE SLCLOUDY; URINE BILIRUBIN NEGATIVE (NEGATIVE); URINE BLOOD NEGATIVE (NEGATIVE); URINE COLOR LTYELLOW; URINE GLUCOSE (UA) 2+ (NEGATIVE); URINE KETONE NEGATIVE (NEGATIVE); URINE LEUK ESTERASE NEGATIVE (NEGATIVE); URINE NITRITE NEGATIVE (NEGATIVE); URINE UROBILINOGEN NEGATIVE mg/dL (0.2-1.0)
[2017-02-07 09:31] LABS: URINE PROTEIN 2+ (NEGATIVE)
[2017-02-07 09:34] LABS: URINE BACTERIA RARE /hpf (NONE SEEN); URINE MUCUS RARE; URINE RBC 1 /hpf (0-3); URINE WBC 4 /hpf (3-5)
[2017-02-07] MEDS: CARVEDILOL 25 MG TABLET (FP) PO SCH (09:49)
[2017-02-07] MEDS: NIFEdipine E.R. 30 MG TABLET (FP) PO SCH (09:49)
[2017-02-07] MEDS ORDERED: LOSARTAN POTASSIUM 50 MG TABLET (FP) PO SCH (10:00)
[2017-02-07] MEDS ORDERED: ISOSORBIDE MONONITRATE 30 MG TAB.SR.24H (FP) PO SCH (10:00)
[2017-02-07] MEDS ORDERED: CITALOPRAM HYDROBROMIDE 20 MG TABLET (FP) PO SCH (10:00)
[2017-02-07] MEDS ORDERED: ASPIRIN COATED 81 MG TABLET.EC PO SCH (10:00)
[2017-02-07 10:11] LABS: TOTAL CELLS COUNTED 100
[2017-02-07 10:12] LABS: PLATELET ESTIMATE DECREASED
[2017-02-07] MEDS ORDERED: INSULIN (NOVOLOG) ASPART 100 UNITS/ML 10ML VIAL ONE (11:00)
--- NOTE | 2017-02-07 11:15 | CON.PULM ---
Consult Consult Specialty:: PULMONARY Referred by:: IVANA Reason for Consultation:: SYNCOPE/COPD - History of Present Illness Chief Complaint: FEELS WELL PRESENTLY AND WANTS TO GO HOME History of Present Illness: This is a 71 YOF with h/o HTN, CKD stage III, pacemaker use, IDDM, asthma, and CAD with MIx2 and stenting x5 who presents with near-syncope at her psychology tech's office. She describes feeling mildly lightheaded while sitting in the waiting room at her doctor's office, then after standing up to walk across the room she became severely lightheaded and almost fainted. Her family members were holding her arms and helped her to the ground. She denies having lost consciousness, hit her head, or suffered any additional injuries. She also denies any preceding or subsequent chest pain, palpitations, SOB, fever, chills , nausea, vomiting, or diarrhea. She has had a mild cough/congestion/URI type illness lately. She has had episodes of syncope in the past and had her pacemaker placed for this reason. She had been scheduled for a pacemaker interrogation about a week and a half ago but the [employer] [facility] procurement representative was not there and this needed to be rescheduled. - History Source History Provided By: Patient, Medical Record Limitations to Obtaining History: No Limitations - Past Medical History SWAMPER: No: Alzheimer's Cardio/Vascular: Yes: CAD (5 coronarty stents), CHF, HTN, Hyperlipdemia (CAD, CARDIOMYOPATHY(ISCHEMIC)), RI, Other (has a defibrillator). No: AFIB Pulmonary: Yes: Asthma Gastrointestinal: Yes: Hiatal Hernia Hepatobiliary: Yes: Other (fatty liver) Renal/: Yes: Renal Inusuff Psych: Yes: Anxiety, Depression Musculoskeletal: Yes: Chronic low back pain Endocrine: Yes: Diabetes Mellitus - Past Surgical History Past Surgical History: Yes: AICD, Breast Biopsy (benign right breast lesion excision), Cataract Removal (bilateral and retinal laser surgery), Colonoscopy, Hernia Repair (supraumbilical with mesh ~12 (?) yrs ago), Hysterectomy (PALMA for fibroids, ovaries are intact), Stent (5 coronary stents) - Alcohol/Substance Use Hx Alcohol Use: No History of Substance Use: reports: None - Smoking History Smoking history: Never smoked Have you smoked in the past 12 months: No Aproximately how many cigarettes per day: 0 - Social History Usual Living Arrangement: Alone ADL: Independent Occupation: retired teacher History of Recent Travel: No Home Medications - Allergies Allergies/Adverse Reactions: Allergies Allergy/AdvReac Type Severity Reaction Status Date / Time No Known Drug Allergies Allergy Verified 02/06/17 15:18 - Home Medications Home Medications: Ambulatory Orders Insulin (Novolog 70/30) [Novolog Mix 70/30 Flexpen -] 30 units SQ BIDAC Isosorbide Mononitrate [Isosorbide Mononitrate ER] 30 mg PO DAILY 08/29/16 Atorvastatin Ca [Lipitor] 80 mg PO HS tablet 09/02/16 Carvedilol [Coreg -] 25 mg PO BID tablet 09/02/16 Citalopram Hydrobromide [Celexa -] 10 mg PO DAILY tablet 09/02/16 Losartan Potassium [Cozaar -] 100 mg PO DAILY tablet 09/02/16 Montelukast Na [Singulair -] 10 mg PO HS tablet 09/02/16 Nifedipine ER [Procardia XL -] 30 mg PO BID #60 tab 09/02/16 Aspirin [ASA -] 81 mg PO DAILY 10/28/16 Liraglutide [Victoza -] 1.2 mg SQ DAILY 10/28/16 Family Disease History - Family Disease History Family Disease History: Diabetes: Mother, Heart Disease: Father ( [place] age 56) , Mother, CA: Sister ( uterine cancer) Review of Systems - Review of Systems Cardiovascular: denies: Chest Pain Respiratory: reports: Cough (MILD). denies: Exercise Intolerance, Hemoptysis, Orthopnea, SOB on Exertion, Wheezing Physical Exam Vital Sings: Vital Signs Temperature 97.9 F 02/07/17 07:32 Pulse Rate 76 02/07/17 07:32 Respiratory Rate 20 02/07/17 07:32 Blood Pressure 132/57 02/07/17 07:32 O2 Sat by Pulse Oximetry (%) 99 02/07/17 07:30 Constitutional: Yes: Well Nourished Eyes: Yes: Conjunctiva Clear HENT: Yes: Atraumatic Neck: Yes: Supple Cardiovascular: Yes: Regular Rate and Rhythm Respiratory: Yes: Regular Gastrointestinal: Yes: Soft, Abdomen, Obese Extremities: Yes: WNL Neurological: Yes: WNL Labs: CBC, BMP 02/07/17 05:05 02/07/17 05:05 REST REVIEWED Imaging - Results Chest X-ray: Report Reviewed, Image Reviewed Problem List - Problems (1) COPD (chronic obstructive pulmonary disease) Code(s): J44.9 - CHRONIC OBSTRUCTIVE PULMONARY DISEASE, UNSPECIFIED (2) CHF (congestive heart failure) Code(s): I50.9 - HEART FAILURE, UNSPECIFIED (3) Chronic kidney disease (CKD) Code(s): N18.9 - CHRONIC KIDNEY DISEASE, UNSPECIFIED (4) Asthma Code(s): J45.909 - UNSPECIFIED ASTHMA, UNCOMPLICATED Assessment/Plan STABLE COPD NEAR SYNCOPE RESOLVED NO OBJECTION FROM A PULMONARY STANDPOINT FOR CONTINUING F/U AN OUTPATIENT. Doris YIN MD
--- NOTE | 2017-02-07 12:04 | HP ---
Admitting History and Physical - Admission History of Present Illness: 71 YOF with h/o HTN, CKD stage III, pacemaker use, IDDM, asthma, and CAD with MIx2 and stenting x5 who presents with near-syncope at her doctor's office (Dr. Snyder). She describes feeling mildly lightheaded while sitting in the waiting room at her doctor's office, then after standing up to walk across the room she became severely lightheaded and almost fainted. Her family members were holding her arms and helped her to the ground. She denies having lost consciousness, hit her head, or suffered any additional injuries. She also denies any preceding or subsequent chest pain, palpitations, SOB, fever, chills, nausea, vomiting, or diarrhea. She has had a mild cough/congestion/URI type illness lately. She has had episodes of syncope in the past and had her pacemaker placed for this reason. She had been scheduled for a pacemaker interrogation about a week and a half ago but the [employer] small business representative was not there and this needed to be rescheduled. 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 No: AFIB Pulmonary: Yes: Asthma Gastrointestinal: Yes: Hiatal Hernia Hepatobiliary: Yes: Other (fatty liver) Renal/: Yes: Renal Inusuff Heme/Onc: Yes: Anemia Psych: Yes: Anxiety, Depression Musculoskeletal: Yes: Chronic low back pain Endocrine: Yes: Diabetes Mellitus - Past Surgical History Past Surgical History: Yes: AICD, Breast Biopsy (benign right breast lesion excision), Cataract Removal (bilateral and retinal laser surgery), Colonoscopy, Hernia Repair (supraumbilical with mesh ~12 (?) yrs ago), Hysterectomy (PALMA for fibroids, ovaries are intact), Stent (5 coronary stents) - Smoking History Smoking history: Never smoked Have you smoked in the past 12 months: No Aproximately how many cigarettes per day: 0 - Alcohol/Substance Use Hx Alcohol Use: No History of Substance Use: reports: None - Social History ADL: Independent Occupation: retired teacher History of Recent Travel: No Home Medications - Allergies Allergies/Adverse Reactions: Allergies Allergy/AdvReac Type Severity Reaction Status Date / Time No Known Drug Allergies Allergy Verified 02/06/17 15:18 - Home Medications Home Medications: Ambulatory Orders Insulin (Novolog 70/30) [Novolog Mix 70/30 Flexpen -] 30 units SQ BIDAC Isosorbide Mononitrate [Isosorbide Mononitrate ER] 30 mg PO DAILY 08/29/16 Atorvastatin Ca [Lipitor] 80 mg PO HS tablet 09/02/16 Carvedilol [Coreg -] 25 mg PO BID tablet 09/02/16 Citalopram Hydrobromide [Celexa -] 10 mg PO DAILY tablet 09/02/16 Losartan Potassium [Cozaar -] 100 mg PO DAILY tablet 09/02/16 Montelukast Na [Singulair -] 10 mg PO HS tablet 09/02/16 Nifedipine ER [Procardia XL -] 30 mg PO BID #60 tab 09/02/16 Aspirin [ASA -] 81 mg PO DAILY 10/28/16 Liraglutide [Victoza -] 1.2 mg SQ DAILY 10/28/16 Family Disease History - Family Disease History Family Disease History: Diabetes: Mother, Heart Disease: Father ( [place] age 56) , Mother, CA: Sister ( uterine cancer) Review of Systems - Review of Systems Cardiovascular: denies: Chest Pain Respiratory: denies: SOB Gastrointestinal: denies: Abdominal Pain Genitourinary: reports: No Symptoms Neurological: reports: Dizziness (-resolved) Physical Examination Vital Signs: Vital Signs Temperature 97.9 F 02/07/17 07:32 Pulse Rate 76 02/07/17 07:32 Respiratory Rate 20 02/07/17 07:32 Blood Pressure 132/57 02/07/17 07:32 O2 Sat by Pulse Oximetry (%) 99 02/07/17 07:30 Cardiovascular: Yes: S1, S2 Respiratory: Yes: Regular, CTA Bilaterally Gastrointestinal: Yes: Normal Bowel Sounds, Soft. No: Tenderness Edema: No Neurological: Yes: Alert, Oriented Labs: CBC, BMP 02/07/17 05:05 02/07/17 05:05 Problem List - Problems (1) Near syncope Assessment/Plan: RESOLVED MAY HAVE BEEN BEHIND IN FLUIDS CE NEGATIVE CARDIO/PULM NOTED Code(s): R55 - SYNCOPE AND COLLAPSE (2) CHF (congestive heart failure) Assessment/Plan: STABLE NO SIGNS OF FAILURE Code(s): I50.9 - HEART FAILURE, UNSPECIFIED (3) Chronic kidney disease (CKD) Assessment/Plan: STABLE NO SIG CHANGE Code(s): N18.9 - CHRONIC KIDNEY DISEASE, UNSPECIFIED
[2017-02-07 12:24] LABS: TROPONIN I 0.03 ng/ml (0.00-0.05)
[2017-02-07 18:14] LABS: URINE LEUK ESTERASE Negative (NEGATIVE)
--- NOTE | 2017-02-10 01:49 | EKG ---
Test Reason : Blood Pressure : / mmHG Vent. Rate : 067 BPM Atrial Rate : 067 BPM P-R Int : 184 ms QRS Dur : 102 ms QT Int : 430 ms P-R-T Axes : 029 012 119 degrees QTc Int : 454 ms NORMAL SINUS RHYTHM ABNORMAL ECG WHEN COMPARED WITH ECG OF 28-OCT-2016 10:57, NO SIGNIFICANT CHANGE WAS FOUND Confirmed by TRIP AUGUSTE MD ([id number]) on 02/10/2017 1:49:21 AM Referred By: Confirmed By:TRIP AUGUSTE MD
== END 2017-02-07 16:14 | disposition home or self-care (01) | DRG 312 ==
LOC: JER 14:40 → JERBED 18:53 → UNDODISIN 20:16 → J4W 21:23
PROVIDERS: ADMIT Family Medicine; ATTEND Family Medicine
DX: R55 Syncope and collapse (principal); I13.0 Hypertensive heart and chronic kidney disease with heart failure and stage 1 through stage 4 chronic kidney disease, or unspecified chronic kidney disease; I50.22 Chronic systolic (congestive) heart failure; E11.22 Type 2 diabetes mellitus with diabetic chronic kidney disease; N18.3 Chronic kidney disease, stage 3 (moderate); I25.10 Atherosclerotic heart disease of native coronary artery without angina pectoris; I25.2 Old myocardial infarction; K44.9 Diaphragmatic hernia without obstruction or gangrene; J44.9 Chronic obstructive pulmonary disease, unspecified; D64.9 Anemia, unspecified; K20.8 Other esophagitis; F41.8 Other specified anxiety disorders; E78.00 Pure hypercholesterolemia, unspecified; K76.0 Fatty (change of) liver, not elsewhere classified; M54.5 Low back pain; E86.0 Dehydration; E66.8 Other obesity; Z68.30 Body mass index [BMI] 30.0-30.9, adult; Z95.5 Presence of coronary angioplasty implant and graft; Z95.810 Presence of automatic (implantable) cardiac defibrillator
CPT/HCPCS: 36415; 71020-TC; 80053; 80061; 81003; 81015; 82550; 83036; 83721; 83735; 83880; 84100; 84484; 85025; 85027; 87086; 93005; 93010; 99284-25

== ENCOUNTER 2017-06-25 10:51 | Emergency (ER) | payer OTHER, BC ==
[2017-06-25 10:56] VITALS: TEMP 98.6; BMI 30.5
--- NOTE | 2017-06-25 12:48 | PDOC ---
History of Present Illness - General Chief Complaint: Blood Pressure Problem Stated Complaint: LOW BP BLOOD PRESSURE PROBLEM Time Seen by Provider: 06/25/17 11:26 History Source: Patient Exam Limitations: No Limitations - History of Present Illness Timing/Duration: reports: 1 hour, resolved prior to arrival Severity: Yes: mild Presenting Symptoms: Yes: other (weakness) Past History - Past History Allergies/Adverse Reactions: Allergies No Known Drug Allergies Allergy (Verified 02/06/17 15:18) Home Medications: Ambulatory Orders Insulin (Novolog 70/30) [Novolog Mix 70/30 Flexpen -] 30 units SQ BIDAC Isosorbide Mononitrate [Isosorbide Mononitrate ER] 30 mg PO DAILY 08/29/16 Atorvastatin Ca [Lipitor] 80 mg PO HS tablet 09/02/16 Carvedilol [Coreg -] 25 mg PO BID tablet 09/02/16 Citalopram Hydrobromide [Celexa -] 10 mg PO DAILY tablet 09/02/16 Losartan Potassium [Cozaar -] 100 mg PO DAILY tablet 09/02/16 Montelukast Na [Singulair -] 10 mg PO HS tablet 09/02/16 Nifedipine ER [Procardia XL -] 30 mg PO BID #60 tab 09/02/16 Aspirin [ASA -] 81 mg PO DAILY 10/28/16 Liraglutide [Victoza -] 1.2 mg SQ DAILY 10/28/16 Tetanus Status: Unknown - Social History Smoking History: No Smoking Status: Never smoked Number of Cigarettes Smoked Per Day: 0 Drug Use: none *Physical Exam - Vital Signs Last Vital Signs Temp Pulse Resp BP Pulse Ox 98.6 F 74 18 124/64 100 06/25/17 10:53 06/25/17 10:53 06/25/17 10:53 06/25/17 11:20 06/25/17 10:53 *DC/Admit/Observation/Transfer - Referrals Referrals: Adeel Bhardwaj MD [Primary Care Provider] - - Patient Instructions - Post Discharge Activity
--- NOTE | 2017-06-25 12:59 | PDOC ---
History of Present Illness - General Chief Complaint: Blood Pressure Problem Stated Complaint: LOW BP BLOOD PRESSURE PROBLEM Time Seen by Provider: 06/25/17 11:26 History Source: Patient Exam Limitations: No Limitations - History of Present Illness Initial Comments: 06/25/17 12:08 71-year-old female with history of COPD and sleep apnea was at pulmonary therapy and she began to feel tired toward the end of her session and so came to the ER for further evaluation. Patient denies chest pain, headache, nausea, difficulty breathing, or blurry vision. Patient states she thinks she took her Cozaar twice by accident this morning. Patient states symptoms have improved since arrival but still complaining of generalized fatigue. Patient also denies urinary complaints, recent change in diet, recent change in weight, recent travel, recent illness. Timing/Duration: 1 hour Severity: mild Associated Symptoms: reports: weakness Past History - Past Medical History Allergies/Adverse Reactions: Allergies Allergy/AdvReac Type Severity Reaction Status Date / Time No Known Drug Allergies Allergy Verified 02/06/17 15:18 Home Medications: Ambulatory Orders Insulin (Novolog 70/30) [Novolog Mix 70/30 Flexpen -] 30 units SQ BIDAC Isosorbide Mononitrate [Isosorbide Mononitrate ER] 30 mg PO DAILY 08/29/16 Atorvastatin Ca [Lipitor] 80 mg PO HS tablet 09/02/16 Carvedilol [Coreg -] 25 mg PO BID tablet 09/02/16 Citalopram Hydrobromide [Celexa -] 10 mg PO DAILY tablet 09/02/16 Losartan Potassium [Cozaar -] 100 mg PO DAILY tablet 09/02/16 Montelukast Na [Singulair -] 10 mg PO HS tablet 09/02/16 Nifedipine ER [Procardia XL -] 30 mg PO BID #60 tab 09/02/16 Aspirin [ASA -] 81 mg PO DAILY 10/28/16 Liraglutide [Victoza -] 1.2 mg SQ DAILY 10/28/16 Anemia: Yes Asthma: Yes Cardiac Disorders: Yes ([place] X 3, CAD, Pacemaker/Selene) CVA: No COPD: Yes CHF: Yes (and pericardial effusion) Dementia: No Diabetes: Yes (BGM 221 @0815 03/23/15) GI Disorders: Yes (ULCER,ESOPHAGITIS,HIATAL HERNIA) Disorders: Yes HTN: Yes Hypercholesterolemia: Yes Liver Disease: No Thyroid Disease: No - Surgical History Abdominal Surgery: Yes (ABD HERNIA REPAIR) Cardiac Surgery: Yes (STENT X5 , PACEMAKER/defibrilator) Orthopedic Surgery: Yes (left ankle fracture 2 chronic mild left ankle edema, unchanged with current) - Suicide/Smoking/Psychosocial Hx Smoking Status: No Smoking History: Never smoked Have you smoked in the past 12 months: No Number of Cigarettes Smoked Daily: 0 Information on smoking cessation initiated: No Hx Alcohol Use: No Drug/Substance Use Hx: No Substance Use Type: None Hx Substance Use Treatment: No Patient Lives Alone: Yes Lives with/in: lives alone Review of Systems - Review of Systems Able to Perform ROS?: No HEENTM: No: Symptoms Reported Respiratory: No: Symptoms reported Cardiac (ROS): No: Symptoms Reported ABD/GI: No: Symptoms Reported : No: Symptoms Reported Musculoskeletal: No: Symptoms Reported Integumentary: No: Symptoms Reported Neurological: No: Symptoms reported Hematologic/Lymphatic: No: Symptoms Reported *Physical Exam - Vital Signs Last Vital Signs Temp Pulse Resp BP Pulse Ox 98.6 F 74 18 124/64 100 06/25/17 10:53 06/25/17 10:53 06/25/17 10:53 06/25/17 11:20 06/25/17 10:53 - Physical Exam General Appearance: Yes: Nourished, Appropriately Dressed. No: Apparent Distress HEENT: positive: EOMI, JARED, TMs Normal, Pharynx Normal. negative: Pale Conjunctivae Neck: positive: Supple Respiratory/Chest: positive: Lungs Clear, Normal Breath Sounds. negative: Respiratory Distress, Accessory Muscle Use Cardiovascular: positive: Regular Rhythm, Regular Rate. negative: Murmur Gastrointestinal/Abdominal: positive: Soft. negative: Tenderness Integumentary: positive: Normal Color, Warm, Moist Neurologic: positive: Motor Strength 5/5 (ambulatory) Heart Score/ECG Review - ECG Intrepretation Rhythm: Regular Rhythm (normal sinus rhythm Unchanged from previous in 2012 rate 71) Medical Decision Making - Medical Decision Making 06/25/17 13:09 Patient here complains of generalized weakness towards the end of her pulmonary therapy now stating her symptoms have resolved substantially. Patient had an EKG done him andcompared to 2012 (faxed by peggy's office) showed no acute findings. Patient requesting to eat to go home. Patient will be discharged home. *DC/Admit/Observation/Transfer Diagnosis at time of Disposition: Weakness - Discharge Dispostion Disposition: HOME Condition at time of disposition: Improved - Referrals Referrals: Adeel Bhardwaj MD [Primary Care Provider] - El Jones MD [Staff Physician] - - Patient Instructions Printed Discharge Instructions: DI for Fatigue Additional Instructions: Please take your blood pressure and be careful of the medication that you are taking to avoid a med error. If you develop symptoms again despite taking the right medication, eating right , and staying well-hydrated, please return to the nearest ED. Otherwise follow-up with her primary care doctor and police records clerk. - Post Discharge Activity
--- NOTE | 2017-06-25 13:00 | EKG ---
Test Reason : Blood Pressure : / mmHG Vent. Rate : 071 BPM Atrial Rate : 071 BPM P-R Int : 196 ms QRS Dur : 106 ms QT Int : 438 ms P-R-T Axes : 029 007 102 degrees QTc Int : 475 ms NORMAL SINUS RHYTHM T WAVE ABNORMALITY, CONSIDER LATERAL ISCHEMIA PROLONGED QT ABNORMAL ECG WHEN COMPARED WITH ECG OF 06-FEB-2017 14:56, T WAVE INVERSION LESS EVIDENT IN LATERAL LEADS Confirmed by ITALO CEVALLOS, MAMADOU ([id number]) on 06/25/2017 1:00:30 PM Referred By: Confirmed By:MAMADOU PUCKETT MD
[2017-06-25 14:26] VITALS: BP 124/67; PULSE 70
== END 2017-06-25 13:20 | disposition home or self-care (01) ==
LOC: JER 10:51
DX: R53.1 Weakness (principal); J44.9 Chronic obstructive pulmonary disease, unspecified; G47.30 Sleep apnea, unspecified; I25.2 Old myocardial infarction; E11.9 Type 2 diabetes mellitus without complications; E78.00 Pure hypercholesterolemia, unspecified; I10 Essential (primary) hypertension; Z95.0 Presence of cardiac pacemaker
CPT/HCPCS: 93005; 93010; 99281-25

== ENCOUNTER 2017-07-29 12:46 | Day surgery (SDC) | payer OTHER, BC ==
[2017-07-28 16:52] VITALS: BMI 30.7
[2017-07-29] MEDS ORDERED: PROMETHAZINE HCL 25 MG/1 ML VIAL IVPUSH PRN (13:41)
[2017-07-29] MEDS ORDERED: ONDANSETRON 4 MG/2 ML VIAL IVPUSH PRN (13:41)
[2017-07-29] MEDS ORDERED: SODIUM CHLORIDE 1,000 ML IV SCH (13:45)
[2017-07-29] MEDS ORDERED: MIDAZOLAM HCL 2 MG/2 ML SINGLE DOSE VIAL ONE (13:59)
--- NOTE | 2017-07-29 14:04 | HP ---
Satellite [facility] - Chief Complaint History of Present Illness: 71 year old woman with chronic kidney disease who wishes to have Peritoneal dialysis catheter placed for PD treatments. She has hx of DM and HTN. She has had a hysterectomy and abdominal wall hernia repair. History Source: Patient Limitations to Obtaining History: No Limitations - Past Medical History Allergies/Adverse Reactions: Allergies Allergy/AdvReac Type Severity Reaction Status Date / Time No Known Drug Allergies Allergy Verified 02/06/17 15:18 Cardiovascular: Yes: CAD (5 coronarty stents), CHF, HTN, Hyperlipdemia (CAD, CARDIOMYOPATHY(ISCHEMIC)), [place], Other (has a defibrillator). No: AFIB Pulmonary: Yes: Asthma Gastrointestinal: Yes: Hiatal Hernia Hepatobiliary: Yes: Other (fatty liver) Renal/: Yes: Renal Inusuff Heme/Onc: Yes: Anemia Musculoskeletal: Yes: Chronic low back pain Endocrine: Yes: Diabetes Mellitus - Current Medications Current Medications: Home Medications Medication Instructions Recorded Insulin (Novolog 70/30) [Novolog 38 units SQ BIDAC 08/29/16 Mix 70/30 Flexpen -] Isosorbide Mononitrate [Isosorbide 30 mg PO DAILY 08/29/16 Mononitrate ER] Atorvastatin Ca [Lipitor] 80 mg PO HS tablet 09/02/16 Carvedilol [Coreg -] 25 mg PO BID tablet 09/02/16 Aspirin [ASA -] 81 mg PO DAILY 10/28/16 Liraglutide [Victoza -] 1.2 mg SQ DAILY 10/28/16 Losartan Potassium [Cozaar -] 50 mg PO DAILY 07/28/17 Epoetin Nic [Procrit] 2,000 unit IJ MONTHLY 07/29/17 Ergocalciferol (Vitamin D2) 50,000 unit PO DAILY 07/29/17 [Vitamin D2] Ferric Citrate [Auryxia] 210 mg PO BID 07/29/17 Montelukast Na [Singulair -] 10 mg PO PRN 07/29/17 Nifedipine ER [Procardia XL -] 60 mg PO BID 07/29/17 Nitroglycerin 0.6 mg SL PRN 07/29/17 Satellite Physical Exam - Physical Examination Vital Signs: Vital Signs Period Temp Pulse Resp BP Sys/Gilliam Pulse Ox Last 24 Hr 98.6 F-98.6 F 73-73 20-20 130-130/59-59 99 General Appearance: Alert & Oriented x3 ENT: Clear Lung: Clear to auscultation Heart: Regular rate & rhythm Abdomen: Soft, No tenderness Extremities: No edema, Other (Diastasis recti) Satellite Impression/Plan - Impression/Plan Impression: CKD stage 4-5 Operative Procedure: Laparoscopy, placement of peritoneal duialysis catheter, possible lysis of adhesions and omentopexy. Prior surgery may have caused adhesions which could make catheter placement difficult or impossible. Date to be Performed: 07/29/17
[2017-07-29] MEDS ORDERED: ceFAZolin SODIUM 1 GM VIAL IVPB ONE (14:35)
[2017-07-29] MEDS ORDERED: ceFAZolin SODIUM 1 GM VIAL ONE (14:41)
[2017-07-29] MEDS ORDERED: GLYCOPYRROLATE 0.2 MG/1 ML VIAL ONE (15:27)
[2017-07-29] MEDS ORDERED: NEOSTIGMINE METHYLSULFATE 0.5 MG/ML - 10 ML MDV ONE (15:27)
--- NOTE | 2017-07-29 16:00 | OP ---
Operative Note - Note: Operative Date: 07/29/17 Pre-Operative Diagnosis: Chronic Kidney Disease Operation: Laparoscopy, lysis of adhesions, omentopexy, placement of peritoneal dialysis catheter Findings: Adhesion of omentum to anterior abdominal wall. Redundant omentum into pelvis. No bowel adhesions seen. Implants: Hedley neck, double cuff curled PD catheter. Post-Operative Diagnosis: Same as Pre-op Surgeon: Kayden Lacey Anesthesiologist/CENTRIFUGAL SPINNER: Muriel Avendaño Anesthesia: General
[2017-07-29] MEDS ORDERED: ACETAMINOPHEN 325 MG TABLET (FP) PO PRN (16:32)
[2017-07-29] MEDS ORDERED: oxyCODONE HCL 5 MG TABLET PO PRN (16:32)
[2017-07-29 17:12] VITALS: TEMP 97.8
[2017-07-29 18:03] VITALS: BP 139/67; PULSE 74
--- NOTE | 2017-07-29 19:21 | OP ---
DATE OF OPERATION: 07/29/2017 SURGEON: Kayden Lacey M.D. PROCEDURE: Laparoscopy with lysis of adhesions, omentopexy, placement of peritoneal dialysis catheter. PREOPERATIVE DIAGNOSIS: Renal failure. POSTOPERATIVE DIAGNOSIS: Renal failure. Intraabdominal adhesions. ANESTHESIA: General. ANESTHESIOLOGIST: Juan M Avendaño N.P. OPERATIVE FINDINGS: There were dense adhesions of omentum to the anterior abdominal wall in the midline at the site of previous incision. The omentum was thick, entering down into the pelvis, requiring omentopexy. There were no intraabdominal adhesions noted. OPERATIVE PROCEDURE: Following routine patient identification, general anesthesia was induced. The abdomen was prepped with Chloraprep. Timeout was performed. A small incision was made at the left upper quadrant costal margin, and a Veress needle was inserted into the peritoneal cavity atraumatically. Pneumoperitoneum was established with carbon dioxide to 15 mmHg. The needle was removed, and a 5-mm Opti-Port was placed under direct laparoscopic visualization. Abdominal exploration was then carried out with the above noted findings. A second 5-mm port was placed in the left abdominal wall under direct visualization. A Ligasure was used to divide the adhesions of omentum to the anterior abdominal wall and free up the omentum. Due to the thickened omentum filling the pelvis, decision was made to perform an omentopexy. A small incision was made in the right upper quadrant, and a 20- gauge spinal needle was advanced into the peritoneal cavity. A 2-0 Prolene suture was then advanced through the needle into peritoneal cavity, and the needle was removed. A suture passer was then advanced through the incision through a separate site in the peritoneum adjacent to the suture. Suture passer was passed through the omentum and used to grasp the suture, was then pulled out through the abdominal wall where it was tied securely, fixing the omentum into the right upper quadrant. Incision was then made above and to the left of the umbilicus, and an 8-mm bladeless trocar was advanced to the underside of the parietal peritoneum. It was then directed towards the pelvis, where it entered the peritoneal cavity. A curled swan neck double cuff takeoff catheter was then straightened with a wire and advanced through the 8-mm port, and deployed into the pelvis. The inner cuff was left just deep to the fascia, and the outer cuff was at the level of the skin. Pneumoperitoneum was evacuated. The end of the catheter was attached to a curved metal tunnel, which was passed in the subcutaneous plane to exit in the right lower quadrant abdominal wall at the previously marked site. The luer lock adapter was attached to the catheter, and then 1 L of saline was run into the peritoneal cavity under gravity drainage in approximately 3 minutes. Bag was dropped to the floor, and approximately 800 mL of fluid was drained before the catheter was capped. All skin incisions were then closed with subcutaneous sutures of 3-0 Vicryl and subcuticular suture of 4-0 Biosyn. Dermabond glue was applied as a dressing. A Biopatch was placed over the catheter at the exit site, it was then covered with a Bioclusive dressing and an ABD pad. Sterile dressings were applied. The patient was taken to the recovery room in stable condition. Gordon [id number] MTDD
== END 2017-07-29 19:30 | disposition home or self-care (01) ==
LOC: JASU-SURG 12:46
PROVIDERS: ATTEND Surgery
PROC: 0WHG43Z Insertion of Infusion Device into Peritoneal Cavity, Percutaneous Endoscopic Approach (ICD-10-PCS; principal; 2017-07-29 14:00)
DX: I12.0 Hypertensive chronic kidney disease with stage 5 chronic kidney disease or end stage renal disease (principal); E13.22 Other specified diabetes mellitus with diabetic chronic kidney disease; N18.6 End stage renal disease; Z99.2 Dependence on renal dialysis; Z79.4 Long term (current) use of insulin; K66.0 Peritoneal adhesions (postprocedural) (postinfection)
CPT/HCPCS: 36415; 82962; 84132; 94760

== ENCOUNTER 2018-01-22 15:10 | Inpatient (IN) | payer OTHER, BC ==
--- NOTE | 2018-01-22 15:13 | PDOC ---
Rapid Medical Evaluation Time Seen by Provider: 01/22/18 15:12 Medical Evaluation: Allergies Allergy/AdvReac Type Severity Reaction Status Date / Time No Known Drug Allergies Allergy Verified 02/06/17 15:18 01/22/18 15:12 I have performed a brief in-person evaluation of this patient. The patient presents with a chief complaint of: Syncope while at gym today. Dizziness prior to event. Feels better no. Denies CP or SOB. H/o HTN, HLD, DM, CAD w/ stents x 5, PPM, COPD, CKD, anemia, gets freq procrit injection per daughter PMD: Dr Bhardwaj Cards: Dr Jones Pertinent physical exam findings: Hypotensive but well conrad w/ clear chest/lungs I have ordered the following:ekg, cxr, labs The patient will proceed to the ED for further evaluation. 01/22/18 15:18 01/22/18 15:31 Discharge Disposition - Diagnosis Syncope Qualifiers: Syncope type: unspecified Qualified Code(s): R55 - Syncope and collapse - Referrals - Patient Instructions - Post Discharge Activity
[2018-01-22 15:21] VITALS: BMI 30.7
--- NOTE | 2018-01-22 15:50 | PDOC ---
History of Present Illness - General Chief Complaint: Syncope/Near Syncope Stated Complaint: CHEST PAIN Time Seen by Provider: 01/22/18 15:12 - History of Present Illness Initial Comments: 01/22/18 16:48 The patient is a 72 year old female with a history of HTN, HLD, DM, [place], CHF who presents for evaluation of syncope. The patient reports that she was working out at the gym when she felt lightheaded. She noted she proceeded to "pass out " and was out for about 1 minute before waking up. She denies similar symptoms in the past and otherwise denies fevers, chills, SOB, chest pain, headache, head trauma, nausea, vomiting, abdominal pain, or changes with urination or bowel movements. Past History - Past Medical History Allergies/Adverse Reactions: Allergies Allergy/AdvReac Type Severity Reaction Status Date / Time No Known Drug Allergies Allergy Verified 01/22/18 15:14 Home Medications: Ambulatory Orders Isosorbide Mononitrate [Isosorbide Mononitrate ER] 30 mg PO DAILY 08/29/16 Atorvastatin Ca [Lipitor] 80 mg PO HS tablet 09/02/16 Carvedilol [Coreg -] 25 mg PO BID tablet 09/02/16 Liraglutide [Victoza -] 1.8 mg SQ DAILY 10/28/16 Losartan Potassium [Cozaar -] 50 mg PO DAILY 07/28/17 Ergocalciferol (Vitamin D2) [Vitamin D2] 50,000 unit PO DAILY 07/29/17 Ferric Citrate [Auryxia] 210 mg PO DAILY 07/29/17 Nifedipine ER [Procardia XL -] 60 mg PO DAILY PRN 07/29/17 Citalopram Hydrobromide [Celexa -] 40 mg PO DAILY 01/22/18 Furosemide [Lasix] 80 mg PO DAILY 01/22/18 Insulin (Novolog 70/30) [Novolog Mix 70/30 Vial] 28 units SQ HS 01/22/18 Insulin Aspart [Novolog] 38 unit SQ AM 01/22/18 Quetiapine Fumarate [Seroquel -] 12.5 mg PO HS 01/22/18 Anemia: Yes Asthma: Yes Cardiac Disorders: Yes ([place] X 3, CAD, Pacemaker/Selene) CVA: No COPD: No CHF: Yes (and pericardial effusion) Dementia: No Diabetes: Yes GI Disorders: Yes (ULCER,ESOPHAGITIS,HIATAL HERNIA) Disorders: Yes HTN: Yes Hypercholesterolemia: Yes Liver Disease: No Thyroid Disease: No - Surgical History Abdominal Surgery: (HERNIA REPAIR) Cardiac Surgery: Yes (STENT X5 , PACEMAKER/defibrilator) Orthopedic Surgery: Yes (left ankle fracture 2 chronic mild left ankle edema, unchanged with current) - Suicide/Smoking/Psychosocial Hx Smoking Status: No Smoking History: Never smoked Have you smoked in the past 12 months: No Number of Cigarettes Smoked Daily: 0 Hx Alcohol Use: No Drug/Substance Use Hx: No Substance Use Type: None Hx Substance Use Treatment: No Review of Systems - Review of Systems Comments:: 01/22/18 16:55 Constitutional: No fevers, chills, fatigue, malaise HEENT: No Rhinorrhea, nasal congestion, visual changes Cardiovascular: Syncope. No chest pain, palpitations, lightheadedness Respiratory: No Cough, SOB, Hemoptysis, Gastrointestinal: No Abdominal pain, Nausea, Vomiting, Constipation, Diarrhea, Melena Genitourinary: No Dysuria, Frequency, Urgency, Hesitancy, Hematuria, Flank pain Musculoskeletal: No Myalgia, arthralgia Skin: No rashes, itching, bruising, pallor Neurologic: No Headache, Dizziness, Numbness, Weakness, or Tingling Psychiatric: No Hallucinations. No SI or HI *Physical Exam - Vital Signs Last Vital Signs Temp Pulse Resp BP Pulse Ox 98 F 71 18 92/59 L 98 01/22/18 15:20 01/22/18 15:20 01/22/18 15:20 01/22/18 15:20 01/22/18 15:20 - Physical Exam Comments: 01/22/18 16:55 General Appearance: Nourished. No Apparent Distress HEENT: No Pharyngeal Erythema, Tonsillar Exudate, Tonsillar Erythema Neck: No Cervical Lymphadenopathy Respiratory/Chest: Lungs Clear, Normal Breath Sounds. No Crackles, Rales, Rhonchi, Wheezing Cardiovascular: Regular Rhythm, Regular Rate. No Murmur, Gallops, Rubs Gastrointestinal/Abdominal: Normal Bowel Sounds, Soft. No Guarding, Rebound, Tenderness Musculoskeletal: No CVA Tenderness Extremity: Normal Capillary Refill Integumentary: Normal Color, Dry, Warm Neurologic: Fully Oriented, Alert, Normal Mood/Affect, Normal Response, Moderate Sedation - Procedure Monitoring Vital Signs: Procedure Monitoring Vital Signs Temperature 98 F 01/22/18 15:20 Pulse Rate 71 01/22/18 15:20 Respiratory Rate 18 01/22/18 15:20 Blood Pressure 92/59 L 01/22/18 15:20 O2 Sat by Pulse Oximetry (%) 98 01/22/18 15:20 Heart Score/ECG Review #1 ECG reviewed & interpreted by me at: 16:12 General ECG Interpretation: Sinus Rhythm, Normal Rate, Normal Intervals, No acute ischemic changes Compared to previous ECG there are: Changes noted 01/22/18 16:12 New T Wave inversions in leads V5 and V6 ED Treatment Course - LABORATORY CBC & Chemistry Diagram: 01/24/18 05:30 01/24/18 05:30 Medical Decision Making - Medical Decision Making 01/22/18 16:56 The patient is a 72 year old female with a history of HTN, HLD, DM, [place], CHF who presents for evaluation of syncope. Differential includes but is not limited to : ACS, Arrythmia, Infections, Metabolic derangement. Given the patient's history and physical exam, we will obtain a cbc, cmp, troponin, ua, chest plain film, ekg to evaluate further. The patient has a defibullator in place and we will arrange for it to be interrogated. The patient will likely require observation admission. We will continue to monitor and reassess while here in the ED. 01/22/18 18:20 CBC, cmp, troponin are unremarkable. Chest plain film is unremarkable. We discussed the case with the admitting team who accepted the patient for admission. *DC/Admit/Observation/Transfer Diagnosis at time of Disposition: Syncope Qualifiers: Syncope type: unspecified Qualified Code(s): R55 - Syncope and collapse - Discharge Dispostion Condition at time of disposition: Stable Decision to Admit order: Yes - Referrals - Patient Instructions - Post Discharge Activity
[2018-01-22 16:38] LABS: BASO % 0.5 % (0-2.0); EOS % 3.9 % (0-4.5); HEMATOCRIT 30.2 % (32.4-45.2); HEMOGLOBIN 10.2 GM/dL (10.7-15.3); LYMPH % 33.3 % (8-40); MCH 27.9 pg (25.7-33.7); MCHC 33.9 g/dl (32.0-36.0); MEAN CELL VOLUME 82.3 fl (80-96); MEAN PLT VOLUME 11.9 fl (7.5-11.1); MONO % 6.7 % (3.8-10.2); NEUT % 55.6 % (42.8-82.8); PLATELET COUNT 127 K/MM3 (134-434); RBC 3.68 M/mm3 (3.60-5.2); RDW 15.6 % (11.6-15.6); WHITE BLOOD COUNT 8.5 K/mm3 (4.0-10.0)
[2018-01-22 16:52] LABS: URINE APPEARANCE SLCLOUDY; URINE BILIRUBIN NEGATIVE (<2.0 mg/dL); URINE COLOR YELLOW; URINE GLUCOSE (UA) 2+ (NEGATIVE); URINE KETONE NEGATIVE (NEGATIVE); URINE LEUK ESTERASE NEGATIVE (NEGATIVE); URINE NITRITE NEGATIVE (NEGATIVE); URINE PROTEIN 3+ (NEGATIVE); URINE UROBILINOGEN NEGATIVE mg/dL (0.2-1.0)
[2018-01-22 17:10] LABS: ALBUMIN 2.5 g/dl (3.4-5.0); ALK PHOS 116 U/L (45-117); ANION GAP 6 MMOL/L (8-16); BILIRUBIN,TOTAL 0.3 mg/dL (0.2-1); BLOOD UREA NITROGEN 59 mg/dL (7-18); CALCIUM 8.1 mg/dL (8.5-10.1); CHLORIDE 109 mmol/L (98-107); CO2 26 mmol/L (21-32); CREATININE 3.6 mg/dL (0.55-1.3); GLUCOSE,RANDOM 86 mg/dL (74-106); POTASSIUM 4.4 mmol/L (3.5-5.1); SGOT/AST 19 U/L (15-37); SGPT/ALT 31 U/L (13-61); SODIUM 141 mmol/L (136-145); TOT PROT 5.8 g/dl (6.4-8.2)
[2018-01-22 17:27] LABS: EPI CELLS FEW /HPF (FEW); URINE MUCUS RARE
--- NOTE | 2018-01-22 20:32 | CON.CARD ---
Consult Consult Specialty:: cardiology Reason for Consultation:: syncope - History of Present Illness Chief Complaint: Presently A&Ox3; asymptomatic. History of Present Illness: 72 yr old woman presents with a chief complaint of: Syncope while at gym today. She had been working out on an elliptical machine when she felt tired. She stopped, felt dizzy, and was asked to sit down; as she was doing so, she slumped oer. Pt had a syncopal episode ?several months ago, while waiting in a doctor's office.. Feels better no. Denies CP or SOB. PMH/o HTN, HLD, DM, s/p [place]--> coronary stents x 5, systolic CHF, s/p ICD ( mildly reduced LVEF; moderate LV dilatation), COPD, ESRD-->peritoneal dialysis ( awaits listing for renal transplant), anemia, gets freq procrit injections per daughter PMD: Dr Bhardwaj Cards: Dr Jones Partition Notcher: Dr. Hopkins - History Source History Provided By: Patient, Family Member, Medical Record Limitations to Obtaining History: No Limitations - Past Medical History TITLE I COORDINATOR: Yes: Syncope Cardio/Vascular: Yes: CAD, CHF, HTN, [place], Hyperlipdemia, Other Pulmonary: Yes: Asthma Gastrointestinal: Yes: Hiatal Hernia Hepatobiliary: Yes: Other (fatty liver) Renal/: Yes: Renal Inusuff Psych: Yes: Anxiety, Depression Musculoskeletal: Yes: Chronic low back pain Endocrine: Yes: Diabetes Mellitus - Past Surgical History Past Surgical History: Yes: Cataract Removal, Hysterectomy, Hernia Repair, Stent , AICD, Colonoscopy, Breast Biopsy - Alcohol/Substance Use Hx Alcohol Use: No History of Substance Use: reports: None - Smoking History Smoking history: Never smoked Have you smoked in the past 12 months: No Aproximately how many cigarettes per day: 0 - Social History Usual Living Arrangement: Alone ADL: Independent Occupation: retired teacher History of Recent Travel: No Home Medications - Allergies Allergies/Adverse Reactions: Allergies Allergy/AdvReac Type Severity Reaction Status Date / Time No Known Drug Allergies Allergy Verified 01/22/18 15:14 - Home Medications Home Medications: Ambulatory Orders Insulin (Novolog 70/30) [Novolog Mix 70/30 Flexpen -] 38 units SQ BIDAC Isosorbide Mononitrate [Isosorbide Mononitrate ER] 30 mg PO DAILY 08/29/16 Atorvastatin Ca [Lipitor] 80 mg PO HS tablet 09/02/16 Carvedilol [Coreg -] 25 mg PO BID tablet 09/02/16 Aspirin [ASA -] 81 mg PO DAILY 10/28/16 Liraglutide [Victoza -] 1.8 mg SQ DAILY 10/28/16 Losartan Potassium [Cozaar -] 50 mg PO DAILY 07/28/17 Epoetin Nic [Procrit] 2,000 unit IJ MONTHLY 07/29/17 Ergocalciferol (Vitamin D2) [Vitamin D2] 50,000 unit PO DAILY 07/29/17 Ferric Citrate [Auryxia] 210 mg PO DAILY 07/29/17 Nifedipine ER [Procardia XL -] 60 mg PO DAILY PRN 07/29/17 Nitroglycerin 0.4 mg SL PRN 07/29/17 Furosemide [Lasix] 80 mg PO DAILY 01/22/18 Multivit-Min/Iron/Folic/Lutein [Centrum Silver Women Tablet] 1 each PO DAILY Quetiapine Fumarate [Seroquel -] 12.5 mg PO HS 01/22/18 Family Disease History - Family Disease History Family Disease History: Diabetes: Mother, Heart Disease: Father ( [place] age 56) , Mother, [place]: Sister ( uterine cancer) Vital Signs: Vital Signs Temperature 98 F 01/22/18 15:20 Pulse Rate 70 01/22/18 19:04 Respiratory Rate 16 01/22/18 19:04 Blood Pressure 145/77 01/22/18 19:04 O2 Sat by Pulse Oximetry (%) 98 01/22/18 19:04 - Other Data Labs, Other Data: CBC, BMP 01/22/18 16:06 01/22/18 16:06 Troponin, BNP 01/22/18 16:06 Troponin I 0.05 B-Natriuretic Peptide 9113.0 H Troponin, BNP 01/22/18 16:06 Troponin I 0.05 B-Natriuretic Peptide 9113.0 H Problem List - Problems (1) Syncope Assessment/Plan: F?u ICD interrogation ([facility] [facility] device) Serial TNI. EKG ECHo for LVEF, wall motion, valve status. Carotid artery US Orthostatic vital sign checks. Maintain hydration. Code(s): R55 - SYNCOPE AND COLLAPSE Qualifiers: Syncope type: unspecified Qualified Code(s): R55 - Syncope and collapse (2) Anemia Code(s): D64.9 - ANEMIA, UNSPECIFIED (3) CAD (coronary artery disease) Code(s): I25.10 - ATHSCL HEART DISEASE OF [place] CORONARY ARTERY W/O ANG PCTRS Qualifiers: Coronary Disease-Associated Artery/Lesion type: unspecified vessel or lesion type (4) Cardiac defibrillator in place Code(s): Z95.810 - PRESENCE OF AUTOMATIC (IMPLANTABLE) CARDIAC DEFIBRILLATOR (5) Diabetes Code(s): E11.9 - TYPE 2 DIABETES MELLITUS WITHOUT COMPLICATIONS Qualifiers: Diabetes mellitus type: type 2 Diabetes mellitus half-way insulin use: unspecified intermediate frame tender insulin use status Diabetes mellitus complication status : with kidney complications Diabetes mellitus complication detail: with chronic kidney disease Chronic kidney disease stage: unspecified stage Qualified Code(s): E11.22 - Type 2 diabetes mellitus with diabetic chronic kidney disease (6) HTN (hypertension) Code(s): I10 - ESSENTIAL (PRIMARY) HYPERTENSION (7) Obesity Code(s): E66.9 - OBESITY, UNSPECIFIED Qualifiers: Obesity type: due to excess calories Qualified Code(s): E66.09 - Other obesity due to excess calories (8) Sleep apnea Code(s): G47.30 - SLEEP APNEA, UNSPECIFIED (9) Status post myocardial infarction Code(s): I25.2 - OLD MYOCARDIAL INFARCTION (10) Stented coronary artery Code(s): Z95.5 - PRESENCE OF CORONARY ANGIOPLASTY IMPLANT AND GRAFT (11) Weakness Code(s): R53.1 - WEAKNESS (12) ESRD (end stage renal disease) Assessment/Plan: f/u with configuration developer (Dr. Hopkins) Code(s): N18.6 - END STAGE RENAL DISEASE
--- NOTE | 2018-01-22 22:25 | HP ---
Admitting History and Physical - Admission Chief Complaint: syncope History of Present Illness: this is a 72 y/o female patient with history of Ischemica cardiomyopathy s/p ICD placement ([facility]) , CAD s/p 5 stents, presnted to the ER after the patient had an episode of syncope. the patient was at the gym exercising on the treadmill when she felt lightheaded, she rested for 5 min, then she stood up and lost her consciousness, patient denied any chest pain, SOB, MORIN, or palpitations. History Source: Patient Limitations to Obtaining History: No Limitations - Past Medical History INTENSIVE CARE AMBULANCE PARAMEDIC: Yes: Syncope Cardiovascular: Yes: CAD, CHF, HTN, [place], Hyperlipdemia, Other Pulmonary: Yes: Asthma Gastrointestinal: Yes: Hiatal Hernia Hepatobiliary: Yes: Other (fatty liver) Renal/: Yes: Renal Inusuff Heme/Onc: Yes: Anemia Psych: Yes: Anxiety, Depression Musculoskeletal: Yes: Chronic low back pain Endocrine: Yes: Diabetes Mellitus - Past Surgical History Past Surgical History: Yes: Cataract Removal, Hysterectomy, Hernia Repair, Stent , AICD, Colonoscopy, Breast Biopsy - Smoking History Smoking history: Never smoked Have you smoked in the past 12 months: No Aproximately how many cigarettes per day: 0 - Alcohol/Substance Use Hx Alcohol Use: No History of Substance Use: reports: None - Social History ADL: Independent Occupation: retired teacher History of Recent Travel: No Home Medications - Allergies Allergies/Adverse Reactions: Allergies Allergy/AdvReac Type Severity Reaction Status Date / Time No Known Drug Allergies Allergy Verified 01/22/18 15:14 - Home Medications Home Medications: Ambulatory Orders RX: Isosorbide Mononitrate [Isosorbide Mononitrate ER] 30 mg PO DAILY 08/29/16 RX: Atorvastatin Ca [Lipitor] 80 mg PO HS tablet 09/02/16 RX: Carvedilol [Coreg -] 25 mg PO BID tablet 09/02/16 RX: Liraglutide [Victoza -] 1.8 mg SQ DAILY 10/28/16 RX: Losartan Potassium [Cozaar -] 50 mg PO DAILY 07/28/17 Ergocalciferol (Vitamin D2) [Vitamin D2] 50,000 unit PO DAILY 07/29/17 RX: Ferric Citrate [Auryxia] 210 mg PO DAILY 07/29/17 RX: Nifedipine ER [Procardia XL -] 60 mg PO DAILY PRN 07/29/17 Citalopram Hydrobromide [Celexa -] 40 mg PO DAILY 01/22/18 Furosemide [Lasix] 80 mg PO DAILY 01/22/18 Insulin (Novolog 70/30) [Novolog Mix 70/30 Vial] 28 units SQ HS 01/22/18 Insulin Aspart [Novolog] 38 unit SQ AM 01/22/18 Quetiapine Fumarate [Seroquel -] 12.5 mg PO HS 01/22/18 Family Disease History - Family Disease History Family Disease History: Diabetes: Mother, Heart Disease: Father ( [place] age 56) , Mother, [place]: Sister ( uterine cancer) Review of Systems - Review of Systems Constitutional: reports: No Symptoms Eyes: reports: No Symptoms HENT: reports: No Symptoms Neck: reports: No Symptoms Cardiovascular: reports: Other (syncope) Respiratory: reports: No Symptoms Gastrointestinal: reports: No Symptoms Genitourinary: reports: No Symptoms Physical Examination Vital Signs: Vital Signs Temperature 98 F 01/22/18 15:20 Pulse Rate 70 01/22/18 19:04 Respiratory Rate 16 01/22/18 19:04 Blood Pressure 145/77 01/22/18 19:04 O2 Sat by Pulse Oximetry (%) 98 01/22/18 19:04 Constitutional: Yes: Well Nourished, No Distress, Obese Eyes: Yes: WNL, Conjunctiva Clear, EOM Intact HENT: Yes: WNL, Atraumatic, Normocephalic Neck: Yes: WNL, Supple, Trachea Midline Cardiovascular: Yes: WNL, Regular Rate and Rhythm, S1, S2 Respiratory: Yes: WNL, Regular, CTA Bilaterally Gastrointestinal: Yes: WNL, Normal Bowel Sounds, Soft ...Rectal Exam: Yes: Deferred Musculoskeletal: Yes: WNL Extremities: Yes: WNL Labs: CBC, BMP 01/22/18 16:06 01/22/18 16:06 Imaging - Results Chest X-ray: Report Reviewed, Image Reviewed X-ray: Report Reviewed, Image Reviewed Ultrasound: Report Reviewed, Image Reviewed Problem List - Problems (1) ESRD (end stage renal disease) Assessment/Plan: on perotonial dialysis [facility] last dialysis was yesterday next dialysis is thursday Code(s): N18.6 - END STAGE RENAL DISEASE (2) Syncope Assessment/Plan: possible orhtostatic 2/2 dehydration wll follow up with cardiology recommendation. Code(s): R55 - SYNCOPE AND COLLAPSE Qualifiers: Syncope type: unspecified Qualified Code(s): R55 - Syncope and collapse (3) Anemia Assessment/Plan: stable 2/2 to ESRD will c/w same management Code(s): D64.9 - ANEMIA, UNSPECIFIED (4) CAD (coronary artery disease) Assessment/Plan: stable status 5 stents last stent 2016 at [facility] patient is due for cardiac cath prior to renal transplant. no chest pain Code(s): I25.10 - ATHSCL HEART DISEASE OF [place] CORONARY ARTERY W/O ANG PCTRS Qualifiers: Coronary Disease-Associated Artery/Lesion type: unspecified vessel or lesion type (5) COPD (chronic obstructive pulmonary disease) Assessment/Plan: stable patient is not in acute exacerbation. Code(s): J44.9 - CHRONIC OBSTRUCTIVE PULMONARY DISEASE, UNSPECIFIED (6) Depression Assessment/Plan: c/w citalopram 40mg Code(s): F32.9 - MAJOR DEPRESSIVE DISORDER, SINGLE EPISODE, UNSPECIFIED (7) Diabetes Assessment/Plan: c/w home dose of novolog aspart c/w home dose of novololg 70/30 Code(s): E11.9 - TYPE 2 DIABETES MELLITUS WITHOUT COMPLICATIONS Qualifiers: Diabetes mellitus type: type 2 Diabetes mellitus technician terminal and repeater insulin use: unspecified technician terminal and repeater insulin use status Diabetes mellitus complication status : with kidney complications Diabetes mellitus complication detail: with chronic kidney disease Chronic kidney disease stage: unspecified stage Qualified Code(s): E11.22 - Type 2 diabetes mellitus with diabetic chronic kidney disease (8) HTN (hypertension) Assessment/Plan: c/w losartan c/w carvidilol Code(s): I10 - ESSENTIAL (PRIMARY) HYPERTENSION (9) Hypertriglyceridemia Code(s): E78.1 - PURE HYPERGLYCERIDEMIA (10) Morbid obesity due to excess calories Code(s): E66.01 - MORBID (SEVERE) OBESITY DUE TO EXCESS CALORIES (11) CHF (congestive heart failure) Assessment/Plan: stable c/w home medication. Code(s): I50.9 - HEART FAILURE, UNSPECIFIED
[2018-01-22] MEDS ORDERED: NIFEdipine E.R. 30 MG TABLET (FP) PO PRN (22:49)
[2018-01-23 06:42] LABS: BASO % 0.5 % (0-2.0); EOS % 3.3 % (0-4.5); HEMATOCRIT 28.6 % (32.4-45.2); HEMOGLOBIN 9.2 GM/dL (10.7-15.3); LYMPH % 37.1 % (8-40); MCH 26.5 pg (25.7-33.7); MCHC 32.1 g/dl (32.0-36.0); MEAN CELL VOLUME 82.5 fl (80-96); MEAN PLT VOLUME 11.2 fl (7.5-11.1); MONO % 7.2 % (3.8-10.2); NEUT % 51.9 % (42.8-82.8); PLATELET COUNT 96 K/MM3 (134-434); RBC 3.47 M/mm3 (3.60-5.2); RDW 15.4 % (11.6-15.6); WHITE BLOOD COUNT 8.9 K/mm3 (4.0-10.0)
[2018-01-23 06:55] LABS: ALBUMIN 2.4 g/dl (3.4-5.0); ALK PHOS 101 U/L (45-117); ANION GAP 10 MMOL/L (8-16); BILIRUBIN,TOTAL 0.2 mg/dL (0.2-1); BLOOD UREA NITROGEN 65 mg/dL (7-18); CHLORIDE 109 mmol/L (98-107); CO2 22 mmol/L (21-32); CREATININE 3.9 mg/dL (0.55-1.3); GLUCOSE,RANDOM 110 mg/dL (74-106); MAGNESIUM 1.7 mg/dL (1.8-2.4); PHOSPHOROUS 4.7 mg/dL (2.5-4.9); POTASSIUM 3.9 mmol/L (3.5-5.1); SGOT/AST 17 U/L (15-37); SGPT/ALT 28 U/L (13-61); SODIUM 142 mmol/L (136-145); TOT PROT 5.2 g/dl (6.4-8.2)
[2018-01-23] MEDS ORDERED: INSULIN (NOVOLOG) ASPART 100 UNITS/ML 10ML VIAL SQ SCH (07:00)
[2018-01-23] MEDS: INSULIN (NOVOLOG) ASPART 100 UNITS/ML 10ML VIAL SQ SCH (09:08)
[2018-01-23] MEDS ORDERED: PT OWN MED DRAWER 7, Y5N ONE ×2 (09:13→11:25)
--- NOTE | 2018-01-23 09:41 | PN ---
Progress Note, Physician History of Present Illness: 72 yr old woman presents with a chief complaint of: Syncope while at gym today. She had been working out on an elliptical machine when she felt tired. She stopped, felt dizzy, and was asked to sit down; as she was doing so, she slumped oer. Pt had a syncopal episode ?several months ago, while waiting in a doctor's office.. Feels better no. Denies CP or SOB. PMH/o HTN, HLD, DM, s/p [place]--> coronary stents x 5, systolic CHF, s/p ICD ( mildly reduced LVEF; moderate LV dilatation), COPD, ESRD-->peritoneal dialysis ( awaits listing for renal transplant), anemia, gets freq procrit injections per daughter PMD: Dr Bhardwaj Cards: Dr Jones Accreditation Specialist: Dr. Hopkins - Current Medication List Current Medications: Active Medications Atorvastatin Calcium (Lipitor -) 80 mg PO HS JOS Carvedilol (Coreg -) 25 mg PO BID JOS Citalopram Hydrobromide (Celexa -) 40 mg PO DAILY [facility] Furosemide (Lasix -) 80 mg PO DAILY [facility] Insulin Aspart (Novolog Mix 70/30 Vial) 28 units SQ HS [facility] Insulin Aspart (Novolog Vial) 25 units SQ AM JOS Last Admin: 01/23/18 09:08 Dose: 25 units Isosorbide Mononitrate (Imdur -) 30 mg PO DAILY [facility] Liraglutide (Victoza -) 1.8 mg SQ DAILY [facility] Losartan Potassium (Cozaar -) 50 mg PO DAILY [facility] Nifedipine (Procardia Xl -) 60 mg PO DAILY [facility] Non-Formulary Medication (Ferric Citrate [Auryxia]) 210 mg PO DAILY [facility] Quetiapine Fumarate (Seroquel -) 12.5 mg PO HS [facility] - Objective Vital Signs: Vital Signs Temperature 98.4 F 01/23/18 05:00 Pulse Rate 80 01/23/18 05:00 Respiratory Rate 20 01/23/18 05:00 Blood Pressure 170/85 01/23/18 05:00 O2 Sat by Pulse Oximetry (%) 98 01/23/18 01:00 Eyes: Yes: WNL, Conjunctiva Clear, EOM Intact HENT: Yes: WNL, Atraumatic, Normocephalic Neck: Yes: WNL, Supple, Trachea Midline Cardiovascular: Yes: WNL, Regular Rate and Rhythm Respiratory: Yes: WNL, Regular, CTA Bilaterally Gastrointestinal: Yes: WNL, Normal Bowel Sounds Genitourinary: Yes: WNL Musculoskeletal: Yes: WNL Extremities: Yes: WNL Edema: No Integumentary: Yes: WNL Neurological: Yes: WNL, Alert, Oriented ...Motor Strength: WNL Psychiatric: Yes: WNL Labs: CBC, BMP 01/23/18 05:30 01/23/18 05:30 Assessment/Plan - Problems (1) Syncope Assessment/Plan: F?u ICD interrogation ([employer] [facility] device) Serial TNI. EKG ECHo for LVEF, wall motion, valve status. Carotid artery US Orthostatic vital sign checks. Maintain hydration. Code(s): R55 - SYNCOPE AND COLLAPSE Qualifiers: Syncope type: unspecified Qualified Code(s): R55 - Syncope and collapse (2) Anemia Code(s): D64.9 - ANEMIA, UNSPECIFIED (3) CAD (coronary artery disease) Code(s): I25.10 - ATHSCL HEART DISEASE OF [place] CORONARY ARTERY W/O ANG PCTRS Qualifiers: Coronary Disease-Associated Artery/Lesion type: unspecified vessel or lesion type (4) Cardiac defibrillator in place Code(s): Z95.810 - PRESENCE OF AUTOMATIC (IMPLANTABLE) CARDIAC DEFIBRILLATOR (5) Diabetes Code(s): E11.9 - TYPE 2 DIABETES MELLITUS WITHOUT COMPLICATIONS Qualifiers: Diabetes mellitus type: type 2 Diabetes mellitus group home insulin use: unspecified grade tamper insulin use status Diabetes mellitus complication status : with kidney complications Diabetes mellitus complication detail: with chronic kidney disease Chronic kidney disease stage: unspecified stage Qualified Code(s): E11.22 - Type 2 diabetes mellitus with diabetic chronic kidney disease (6) HTN (hypertension) Code(s): I10 - ESSENTIAL (PRIMARY) HYPERTENSION (7) Obesity Code(s): E66.9 - OBESITY, UNSPECIFIED Qualifiers: Obesity type: due to excess calories Qualified Code(s): E66.09 - Other obesity due to excess calories (8) Sleep apnea Code(s): G47.30 - SLEEP APNEA, UNSPECIFIED (9) Status post myocardial infarction Code(s): I25.2 - OLD MYOCARDIAL INFARCTION (10) Stented coronary artery Code(s): Z95.5 - PRESENCE OF CORONARY ANGIOPLASTY IMPLANT AND GRAFT (11) Weakness Code(s): R53.1 - WEAKNESS (12) ESRD (end stage renal disease) Assessment/Plan: f/u with paraprofessional interpreter (Dr. Hokpins) Code(s): N18.6 - END STAGE RENAL DISEASE
[2018-01-23] MEDS: LIRAGLUTIDE 0.6 MG/0.1 ML PEN.INJCTR SQ SCH (09:42)
[2018-01-23] MEDS: FUROSEMIDE 40 MG TABLET (FP) PO SCH (09:42)
[2018-01-23] MEDS: LOSARTAN POTASSIUM 50 MG TABLET (FP) PO SCH (09:44)
[2018-01-23] MEDS: ISOSORBIDE MONONITRATE 30 MG TAB.SR.24H (FP) PO SCH (09:44)
[2018-01-23] MEDS: CITALOPRAM HYDROBROMIDE 20 MG TABLET (FP) PO SCH (09:44)
[2018-01-23] MEDS: CARVEDILOL 25 MG TABLET (FP) PO SCH ×2 (09:44→21:47)
[2018-01-23] MEDS: NIFEdipine E.R 60 MG TABLET (UD) PO SCH (09:45)
[2018-01-23] MEDS ORDERED: PATIENT'S OWN MEDICATION (NON-FORMULARY) (Ferric Citrate [Auryxia] 210 MG) PO SCH (10:00)
[2018-01-23] MEDS ORDERED: ERGOCALCIFEROL (VITAMIN D2) 50,000 UNIT CAPSULE (FP) PO SCH (10:00)
--- NOTE | 2018-01-23 12:53 | PN ---
Progress Note, Physician Chief Complaint: AWAKE ALERT DAUGHTER BEDSIDE EVENTS AND NOTES REVIEWED - Current Medication List Current Medications: Active Medications Atorvastatin Calcium (Lipitor -) 80 mg PO HS [facility] Carvedilol (Coreg -) 25 mg PO BID [facility] Last Admin: 01/23/18 09:44 Dose: Not Given Citalopram Hydrobromide (Celexa -) 40 mg PO DAILY [facility] Last Admin: 01/23/18 09:44 Dose: Not Given Furosemide (Lasix -) 80 mg PO DAILY [facility] Last Admin: 01/23/18 09:42 Dose: 80 mg Insulin Aspart (Novolog Mix 70/30 Vial) 28 units SQ HS [facility] Insulin Aspart (Novolog Vial) 25 units SQ AM [facility] Last Admin: 01/23/18 09:08 Dose: 25 units Isosorbide Mononitrate (Imdur -) 30 mg PO DAILY [facility] Last Admin: 01/23/18 09:44 Dose: Not Given Liraglutide (Victoza -) 1.8 mg SQ DAILY [facility] Last Admin: 01/23/18 09:42 Dose: 1.8 mg Losartan Potassium (Cozaar -) 50 mg PO DAILY [facility] Last Admin: 01/23/18 09:44 Dose: Not Given Nifedipine (Procardia Xl -) 60 mg PO DAILY [facility] Last Admin: 01/23/18 09:45 Dose: Not Given Non-Formulary Medication (Ferric Citrate [Auryxia]) 210 mg PO DAILY [facility] Quetiapine Fumarate (Seroquel -) 12.5 mg PO [facility] - Objective Vital Signs: Vital Signs Temperature 98.5 F 01/23/18 11:00 Pulse Rate 78 01/23/18 11:00 Respiratory Rate 20 01/23/18 11:00 Blood Pressure 177/82 H 01/23/18 11:00 O2 Sat by Pulse Oximetry (%) 98 01/23/18 09:00 Constitutional: Yes: Mild Distress Eyes: Yes: WNL HENT: Yes: WNL Neck: Yes: WNL Cardiovascular: Yes: WNL Respiratory: Yes: WNL Gastrointestinal: Yes: WNL Genitourinary: Yes: WNL Musculoskeletal: Yes: WNL Extremities: Yes: WNL Edema: Yes Peripheral Pulses WNL: Yes Integumentary: Yes: WNL Wound/Incision: Yes: Clean/Dry Neurological: Yes: WNL ...Motor Strength: WNL Psychiatric: Yes: WNL Labs: CBC, BMP 01/23/18 05:30 01/23/18 05:30 Problem List - Problems (1) ESRD (end stage renal disease) Code(s): N18.6 - END STAGE RENAL DISEASE (2) Syncope Code(s): R55 - SYNCOPE AND COLLAPSE Qualifiers: Syncope type: unspecified Qualified Code(s): R55 - Syncope and collapse (3) Abdominal pain Code(s): R10.9 - UNSPECIFIED ABDOMINAL PAIN Qualifiers: Abdominal location: left lower quadrant Qualified Code(s): R10.32 - Left lower quadrant pain (4) Acute on chronic diastolic CHF (congestive heart failure) Code(s): I50.33 - ACUTE ON CHRONIC DIASTOLIC (CONGESTIVE) HEART FAILURE (5) Anemia Code(s): D64.9 - ANEMIA, UNSPECIFIED (6) Asthma Code(s): J45.909 - UNSPECIFIED ASTHMA, UNCOMPLICATED (7) Atypical chest pain Code(s): R07.89 - OTHER CHEST PAIN (8) CAD (coronary artery disease) Code(s): I25.10 - ATHSCL HEART DISEASE OF [place] CORONARY ARTERY W/O ANG PCTRS Qualifiers: Coronary Disease-Associated Artery/Lesion type: unspecified vessel or lesion type (9) Cardiac defibrillator in place Code(s): Z95.810 - PRESENCE OF AUTOMATIC (IMPLANTABLE) CARDIAC DEFIBRILLATOR (10) Depression Code(s): F32.9 - MAJOR DEPRESSIVE DISORDER, SINGLE EPISODE, UNSPECIFIED (11) Diabetes Code(s): E11.9 - TYPE 2 DIABETES MELLITUS WITHOUT COMPLICATIONS Qualifiers: Diabetes mellitus type: type 2 Diabetes mellitus shelter insulin use: unspecified chili powder mixer insulin use status Diabetes mellitus complication status : with kidney complications Diabetes mellitus complication detail: with chronic kidney disease Chronic kidney disease stage: unspecified stage Qualified Code(s): E11.22 - Type 2 diabetes mellitus with diabetic chronic kidney disease (12) Dizziness Code(s): R42 - DIZZINESS AND GIDDINESS Assessment/Plan TELEMETRY ADMISSION CARDIO/RENAL EVAL ESRD ON HD ANEMIA WITH DIZZINESS CHECK LEVELS OOB TO CHAIR PT EVAL
--- NOTE | 2018-01-23 13:59 | CON.PULM ---
Consult - History of Present Illness History of Present Illness: This is a 72 Year old female nonsmoker with h/o HTN, CKD stage III, pacemaker, IDDM, asthma, and CAD with MIx2 and stenting x5 diagnosed with osas last year, on peritoneal dialysis tiw presents with syncope after walking on treadmill at the gym. She describes feeling mildly lightheaded then upon sitting down she lost consciousness. She denies hitting her head, or suffered any additional injuries. She also denies any preceding or subsequent chest pain, palpitations, SOB, fever, chills, nausea, vomiting, or diarrhea. She has had episodes of syncope in the past and had her pacemaker placed for this reason. - History Source History Provided By: Patient, Family Member, Medical Record Limitations to Obtaining History: No Limitations - Past Medical History TRANSPORTATION DEPARTMENT HEAD: Yes: Syncope. No: Alzheimer's Cardio/Vascular: Yes: CAD, CHF, HTN, [place], Hyperlipdemia, Other Pulmonary: Yes: Asthma Gastrointestinal: Yes: Hiatal Hernia Hepatobiliary: Yes: Other (fatty liver) Renal/: Yes: Renal Inusuff ...: No Psych: Yes: Anxiety, Depression Musculoskeletal: Yes: Chronic low back pain Endocrine: Yes: Diabetes Mellitus - Past Surgical History Past Surgical History: Yes: Cataract Removal, Hysterectomy, Hernia Repair, Stent , AICD, Colonoscopy, Breast Biopsy - Alcohol/Substance Use Hx Alcohol Use: No History of Substance Use: reports: None - Smoking History Smoking history: Never smoked Have you smoked in the past 12 months: No Aproximately how many cigarettes per day: 0 - Social History Usual Living Arrangement: Alone ADL: Independent Occupation: retired teacher History of Recent Travel: No Home Medications - Allergies Allergies/Adverse Reactions: Allergies Allergy/AdvReac Type Severity Reaction Status Date / Time No Known Drug Allergies Allergy Verified 01/22/18 15:14 - Home Medications Home Medications: Ambulatory Orders Isosorbide Mononitrate [Isosorbide Mononitrate ER] 30 mg PO DAILY 08/29/16 Atorvastatin Ca [Lipitor] 80 mg PO HS tablet 09/02/16 Carvedilol [Coreg -] 25 mg PO BID tablet 09/02/16 Liraglutide [Victoza -] 1.8 mg SQ DAILY 10/28/16 Losartan Potassium [Cozaar -] 50 mg PO DAILY 07/28/17 Ergocalciferol (Vitamin D2) [Vitamin D2] 50,000 unit PO DAILY 07/29/17 Ferric Citrate [Auryxia] 210 mg PO DAILY 07/29/17 Nifedipine ER [Procardia XL -] 60 mg PO DAILY PRN 07/29/17 Citalopram Hydrobromide [Celexa -] 40 mg PO DAILY 01/22/18 Furosemide [Lasix] 80 mg PO DAILY 01/22/18 Insulin (Novolog 70/30) [Novolog Mix 70/30 Vial] 28 units SQ HS 01/22/18 Insulin Aspart [Novolog] 38 unit SQ AM 01/22/18 Quetiapine Fumarate [Seroquel -] 12.5 mg PO HS 01/22/18 Family Disease History - Family Disease History Family Disease History: Diabetes: Mother, Heart Disease: Father ( [place] age 56) , Mother, [place]: Sister ( uterine cancer) Review of Systems - Review of Systems Constitutional: denies: Fever Eyes: denies: Blurred Vision HENT: denies: Difficult Swallowing Neck: denies: Decreased ROM Cardiovascular: denies: Chest Pain Respiratory: denies: Cough, SOB on Exertion Gastrointestinal: denies: Abdominal Pain Genitourinary: denies: Burning Breasts: reports: No Symptoms Reported Musculoskeletal: reports: No Symptoms Integumentary: reports: No Symptoms Neurological: reports: Dizziness. denies: Change in Speech Endocrine: denies: Excessive Sweating Physical Exam Vital Sings: Vital Signs Temperature 98.3 F 01/23/18 13:18 Pulse Rate 72 01/23/18 13:18 Respiratory Rate 20 01/23/18 13:18 Blood Pressure 154/65 01/23/18 13:18 O2 Sat by Pulse Oximetry (%) 98 01/23/18 09:00 Constitutional: Yes: Calm Eyes: Yes: EOM Intact HENT: Yes: Normocephalic Neck: Yes: Trachea Midline Cardiovascular: Yes: Regular Rate and Rhythm, S1, S2 Respiratory: Yes: CTA Bilaterally Gastrointestinal: Yes: Normal Bowel Sounds, Soft Edema: No Neurological: Yes: Alert Psychiatric: Yes: Alert Labs: CBC, BMP 01/23/18 05:30 01/23/18 05:30 rest reviewed Imaging - Results Chest X-ray: Report Reviewed, Image Reviewed Problem List - Problems (1) ESRD (end stage renal disease) Code(s): N18.6 - END STAGE RENAL DISEASE (2) Syncope Code(s): R55 - SYNCOPE AND COLLAPSE Qualifiers: Syncope type: unspecified Qualified Code(s): R55 - Syncope and collapse (3) Acute on chronic diastolic CHF (congestive heart failure) Code(s): I50.33 - ACUTE ON CHRONIC DIASTOLIC (CONGESTIVE) HEART FAILURE (4) Acute renal failure Code(s): N17.9 - ACUTE KIDNEY FAILURE, UNSPECIFIED Qualifiers: Acute renal failure type: unspecified Qualified Code(s): N17.9 - Acute kidney failure, unspecified (5) Anemia Code(s): D64.9 - ANEMIA, UNSPECIFIED (6) Asthma Code(s): J45.909 - UNSPECIFIED ASTHMA, UNCOMPLICATED (7) CAD (coronary artery disease) Code(s): I25.10 - ATHSCL HEART DISEASE OF [place] CORONARY ARTERY W/O ANG PCTRS Qualifiers: Coronary Disease-Associated Artery/Lesion type: unspecified vessel or lesion type (8) CHF (congestive heart failure) Code(s): I50.9 - HEART FAILURE, UNSPECIFIED (9) COPD (chronic obstructive pulmonary disease) Code(s): J44.9 - CHRONIC OBSTRUCTIVE PULMONARY DISEASE, UNSPECIFIED (10) Cardiac defibrillator in place Code(s): Z95.810 - PRESENCE OF AUTOMATIC (IMPLANTABLE) CARDIAC DEFIBRILLATOR Assessment/Plan SYNCOPE ETIOLOGY? LOW INDEX OF SUSPICION FOR PE MULTIPLE MEDICAL PROBLEMS LISTED RENAL WOULD LIKE PERITONEAL DIALYSIS TO RESUME THURSDAY AN OUTPATIENT SYNCOPE WORKUP ORDERED PER CARDIOLOGY WILL FOLLOW Doris YIN MD
--- NOTE | 2018-01-23 17:18 | EKG ---
Test Reason : Blood Pressure : / mmHG Vent. Rate : 067 BPM Atrial Rate : 067 BPM P-R Int : 192 ms QRS Dur : 104 ms QT Int : 454 ms P-R-T Axes : 023 012 141 degrees QTc Int : 479 ms NORMAL SINUS RHYTHM PROLONGED QT ABNORMAL ECG WHEN COMPARED WITH ECG OF 25-JUN-2017 11:37, T WAVE INVERSION MORE EVIDENT IN LATERAL LEADS Confirmed by MD ANTONIO, SHAUN ([id number]) on 01/23/2018 5:18:02 PM Referred By: Confirmed By:SHAUN ALVAREZ MD
[2018-01-23] MEDS ORDERED: INSULIN (NOVOLOG MIX 70/30) 100 UNITS/ML MDV SQ SCH (22:00)
[2018-01-23] MEDS ORDERED: QUEtiapine FUMARATE 25 MG TABLET (FP) PO SCH (22:00)
[2018-01-23] MEDS ORDERED: ATORVASTATIN CA 80 MG TABLET (FP) PO SCH (22:00)
[2018-01-24] MEDS: INSULIN (NOVOLOG) ASPART 100 UNITS/ML 10ML VIAL SQ SCH (06:41)
[2018-01-24] MEDS ORDERED: INSULIN SLIDING SCALE (NOVOLOG) 1 VIAL SQ SCH (07:00)
[2018-01-24 08:04] LABS: HEMOGLOBIN 9.6 GM/dL (10.7-15.3); MCH 26.6 pg (25.7-33.7); MEAN PLT VOLUME 11.5 fl (7.5-11.1); PLATELET COUNT 97 K/MM3 (134-434); RBC 3.61 M/mm3 (3.60-5.2); RDW 15.6 % (11.6-15.6); WHITE BLOOD COUNT 8.7 K/mm3 (4.0-10.0)
[2018-01-24 08:12] LABS: ANION GAP 11 MMOL/L (8-16); BLOOD UREA NITROGEN 72 mg/dL (7-18); CALCIUM 8.5 mg/dL (8.5-10.1); CHLORIDE 107 mmol/L (98-107); CO2 24 mmol/L (21-32); GLUCOSE,RANDOM 82 mg/dL (74-106); MAGNESIUM 1.9 mg/dL (1.8-2.4); PHOSPHOROUS 5.3 mg/dL (2.5-4.9); POTASSIUM 4.3 mmol/L (3.5-5.1); SODIUM 142 mmol/L (136-145)
[2018-01-24] MEDS: CARVEDILOL 25 MG TABLET (FP) PO SCH (09:11)
[2018-01-24] MEDS: NIFEdipine E.R 60 MG TABLET (UD) PO SCH (09:11)
[2018-01-24] MEDS: FUROSEMIDE 40 MG TABLET (FP) PO SCH (09:11)
[2018-01-24] MEDS: CITALOPRAM HYDROBROMIDE 20 MG TABLET (FP) PO SCH (09:11)
[2018-01-24] MEDS: ISOSORBIDE MONONITRATE 30 MG TAB.SR.24H (FP) PO SCH (09:11)
[2018-01-24] MEDS: LOSARTAN POTASSIUM 50 MG TABLET (FP) PO SCH (09:11)
[2018-01-24] MEDS ORDERED: PT OWN MED DRAWER 7, Y5N ONE (09:13)
[2018-01-24] MEDS: LIRAGLUTIDE 0.6 MG/0.1 ML PEN.INJCTR SQ SCH (09:14)
--- NOTE | 2018-01-24 09:47 | PN ---
Progress Note, Physician History of Present Illness: 72 yr old woman presents with a chief complaint of: Syncope while at gym today. She had been working out on an elliptical machine when she felt tired. She stopped, felt dizzy, and was asked to sit down; as she was doing so, she slumped oer. Pt had a syncopal episode ?several months ago, while waiting in a doctor's office.. Feels better no. Denies CP or SOB. PMH/o HTN, HLD, DM, s/p VT--> coronary stents x 5, systolic CHF, s/p ICD ( mildly reduced LVEF; moderate LV dilatation), COPD, ESRD-->peritoneal dialysis ( awaits listing for renal transplant), anemia, gets freq procrit injections per daughter PMD: Dr Bhardwaj Cards: Dr Jones Airworthiness Inspector: Dr. Hopkins - Current Medication List Current Medications: Active Medications Atorvastatin Calcium (Lipitor -) 80 mg PO HS [facility] Last Admin: 01/23/18 21:47 Dose: 80 mg Carvedilol (Coreg -) 25 mg PO BID [facility] Last Admin: 01/24/18 09:11 Dose: 25 mg Citalopram Hydrobromide (Celexa -) 40 mg PO DAILY [facility] Last Admin: 01/24/18 09:11 Dose: 40 mg Furosemide (Lasix -) 80 mg PO DAILY [facility] Last Admin: 01/24/18 09:11 Dose: 80 mg Insulin Aspart (Novolog Mix 70/30 Vial) 28 units SQ HS [facility] Last Admin: 01/23/18 21:47 Dose: 28 units Insulin Aspart (Novolog Vial) 25 units SQ AM [facility] Last Admin: 01/24/18 06:41 Dose: Not Given Isosorbide Mononitrate (Imdur -) 30 mg PO DAILY [facility] Last Admin: 01/24/18 09:11 Dose: 30 mg Liraglutide (Victoza -) 1.8 mg SQ DAILY [facility] Last Admin: 01/24/18 09:14 Dose: 1.8 mg Losartan Potassium (Cozaar -) 50 mg PO DAILY [facility] Last Admin: 01/24/18 09:11 Dose: 50 mg Nifedipine (Procardia Xl -) 60 mg PO DAILY [facility] Last Admin: 01/24/18 09:11 Dose: 60 mg Non-Formulary Medication (Ferric Citrate [Auryxia]) 210 mg PO DAILY [facility] Quetiapine Fumarate (Seroquel -) 12.5 mg PO HS [facility] Last Admin: 01/23/18 21:49 Dose: 12.5 mg - Objective Vital Signs: Vital Signs Temperature 98 F 01/24/18 06:26 Pulse Rate 72 01/24/18 06:26 Respiratory Rate 18 01/24/18 06:26 Blood Pressure 180/100 H 01/24/18 06:26 O2 Sat by Pulse Oximetry (%) 95 01/23/18 21:00 Eyes: Yes: WNL, Conjunctiva Clear, EOM Intact HENT: Yes: WNL, Atraumatic, Normocephalic Neck: Yes: WNL, Supple, Trachea Midline Cardiovascular: Yes: WNL, Regular Rate and Rhythm Respiratory: Yes: WNL, Regular, CTA Bilaterally Gastrointestinal: Yes: WNL, Normal Bowel Sounds Genitourinary: Yes: WNL Musculoskeletal: Yes: WNL Extremities: Yes: WNL Edema: No Integumentary: Yes: WNL Neurological: Yes: WNL, Alert, Oriented ...Motor Strength: WNL Psychiatric: Yes: WNL Labs: CBC, BMP 01/24/18 05:30 01/24/18 05:30 Assessment/Plan - Problems (1) Syncope Assessment/Plan: F?u ICD interrogation ([facility] [facility] device) normal interrogation no VT/VF - ERT 4.8 months May be d/c and f/u as outpatient [facility] for LVEF, wall motion, valve status. Carotid artery US Orthostatic vital sign checks. Maintain hydration. Code(s): R55 - SYNCOPE AND COLLAPSE Qualifiers: Syncope type: unspecified Qualified Code(s): R55 - Syncope and collapse (2) Anemia Code(s): D64.9 - ANEMIA, UNSPECIFIED (3) CAD (coronary artery disease) Code(s): I25.10 - ATHSCL HEART DISEASE OF [place] CORONARY ARTERY W/O ANG PCTRS Qualifiers: Coronary Disease-Associated Artery/Lesion type: unspecified vessel or lesion type (4) Cardiac defibrillator in place Code(s): Z95.810 - PRESENCE OF AUTOMATIC (IMPLANTABLE) CARDIAC DEFIBRILLATOR (5) Diabetes Code(s): E11.9 - TYPE 2 DIABETES MELLITUS WITHOUT COMPLICATIONS Qualifiers: Diabetes mellitus type: type 2 Diabetes mellitus computer terminal operator insulin use: unspecified half-way insulin use status Diabetes mellitus complication status : with kidney complications Diabetes mellitus complication detail: with chronic kidney disease Chronic kidney disease stage: unspecified stage Qualified Code(s): E11.22 - Type 2 diabetes mellitus with diabetic chronic kidney disease (6) HTN (hypertension) Code(s): I10 - ESSENTIAL (PRIMARY) HYPERTENSION (7) Obesity Code(s): E66.9 - OBESITY, UNSPECIFIED Qualifiers: Obesity type: due to excess calories Qualified Code(s): E66.09 - Other obesity due to excess calories (8) Sleep apnea Code(s): G47.30 - SLEEP APNEA, UNSPECIFIED (9) Status post myocardial infarction Code(s): I25.2 - OLD MYOCARDIAL INFARCTION (10) Stented coronary artery Code(s): Z95.5 - PRESENCE OF CORONARY ANGIOPLASTY IMPLANT AND GRAFT (11) Weakness Code(s): R53.1 - WEAKNESS (12) ESRD (end stage renal disease) Assessment/Plan: f/u with space and storage clerk (Dr. Hopkins) Code(s): N18.6 - END STAGE RENAL DISEASE
[2018-01-24 10:49] VITALS: BP 198/92; PULSE 81; TEMP 98.7
--- NOTE | 2018-01-24 11:37 | DS ---
Physical Examination Vital Signs: Vital Signs Temperature 98.7 F 01/24/18 10:00 Pulse Rate 81 01/24/18 10:00 Respiratory Rate 18 01/24/18 10:00 Blood Pressure 198/92 H 01/24/18 10:00 O2 Sat by Pulse Oximetry (%) 98 01/24/18 09:00 Constitutional: Yes: No Distress Eyes: Yes: WNL HENT: Yes: WNL, Other Cardiovascular: Yes: WNL Respiratory: Yes: WNL Gastrointestinal: Yes: WNL Renal/: Yes: WNL Musculoskeletal: Yes: WNL Extremities: Yes: WNL Edema: No Peripheral Pulses WNL: Yes Integumentary: Yes: WNL Wound/Incision: Yes: Clean/Dry Neurological: Yes: WNL ...Motor Strength: WNL Psychiatric: Yes: WNL Labs: CBC, BMP 01/24/18 05:30 01/24/18 05:30 Discharge Summary Reason For Visit: SYNCOPE Current Active Problems ESRD (end stage renal disease) (Acute) Syncope (Acute) Procedures: Principal: LABS/XRAYS Hospital Course: ADMITTED FOR LIGHT HEADEDNESS, ANEMIA WITH SYMPTOMATIC DIZZINESS, H/O CARDIAC WHARF LABOURER CHANGE, DEPRESSION, ESRD ON PD Condition: Stable - Instructions Diet, Activity, Other Instructions: LOW SALT/ADA DC PLANNING F/U WITH CARDIOLOGY AND WILL NEED BP CHECK AND ECHO IN THE MORNING AN OUTPATIENT Referrals: El Jones MD [Staff Physician] - Disposition: VNS/HOME HEALTH CARE - Home Medications Comprehensive Discharge Medication List: Ambulatory Orders Isosorbide Mononitrate [Isosorbide Mononitrate ER] 30 mg PO DAILY 08/29/16 Atorvastatin Ca [Lipitor] 80 mg PO HS tablet 09/02/16 Carvedilol [Coreg -] 25 mg PO BID tablet 09/02/16 Liraglutide [Victoza -] 1.8 mg SQ DAILY 10/28/16 Losartan Potassium [Cozaar -] 50 mg PO DAILY 07/28/17 Ergocalciferol (Vitamin D2) [Vitamin D2] 50,000 unit PO DAILY 07/29/17 Ferric Citrate [Auryxia] 210 mg PO DAILY 07/29/17 Nifedipine ER [Procardia XL -] 60 mg PO DAILY PRN 07/29/17 Citalopram Hydrobromide [Celexa -] 40 mg PO DAILY 01/22/18 Furosemide [Lasix] 80 mg PO DAILY 01/22/18 Quetiapine Fumarate [Seroquel -] 12.5 mg PO HS 01/22/18
[2018-01-24] MEDS ORDERED: dilTIAZem HCL 30 MG TABLET (FP) PO ONE (12:00)
== END 2018-01-24 13:39 | disposition home or self-care (01) | DRG 312 ==
LOC: JER 15:10 → JERBED 19:43 → OBSVTOIN 22:46 → J4W 01-23 01:18
PROVIDERS: ADMIT Family Medicine; ATTEND Family Medicine
DX: R55 Syncope and collapse (principal); N18.6 End stage renal disease; I50.33 Acute on chronic diastolic (congestive) heart failure; I13.2 Hypertensive heart and chronic kidney disease with heart failure and with stage 5 chronic kidney disease, or end stage renal disease; D64.9 Anemia, unspecified; E78.5 Hyperlipidemia, unspecified; E11.22 Type 2 diabetes mellitus with diabetic chronic kidney disease; I25.10 Atherosclerotic heart disease of native coronary artery without angina pectoris; J44.9 Chronic obstructive pulmonary disease, unspecified; Z95.810 Presence of automatic (implantable) cardiac defibrillator; R42 Dizziness and giddiness; I25.5 Ischemic cardiomyopathy; Z98.61 Coronary angioplasty status; F32.9 Major depressive disorder, single episode, unspecified; G47.30 Sleep apnea, unspecified; E66.9 Obesity, unspecified; Z68.30 Body mass index [BMI] 30.0-30.9, adult
CPT/HCPCS: 36415; 71045-TC-FY; 80048; 80053; 81003; 81015; 82550; 82962; 83036; 83540; 83735; 83880; 84100; 84443; 84484; 85025; 85027; 93005; 93010; 97110-GP; 99285-25; G0378

== ENCOUNTER 2018-05-27 14:45 | Emergency (ER) | payer OTHER, BC ==
[2018-05-27 15:13] VITALS: BMI 28.5
--- NOTE | 2018-05-27 15:16 | PDOC ---
History of Present Illness - General Chief Complaint: Lightheaded Stated Complaint: Lightheaded Time Seen by Provider: 05/27/18 15:15 History Source: Patient Exam Limitations: No Limitations - History of Present Illness Initial Comments: 72 yo F w a pmh of Ischemic cardiomyopathy s/p ICD placement ([facility]), CAD s/ p 5 stents, CHF, HTN, [place], HLD, Asthma, fatty liver, renal insufficiency, anemia , anxiety depression, chronic low back pain, DM presents to the ER with the chief complaint of lightheadedness. She saw Dr. Lozoya earlier today at which point her blood pressure was relatively high compared to normal ~ 168/90. She was instructed to take nifedipine whenever her BP goes up. So she took two 60 mg oral nifedipine pills (120 total) and then 1 hour later while she was at a dinner with her daughter and she felt lightheaded so came to the ER. Upon arrival to the ER she was hypotensive to 94/56. The patient believes this is 100 % secondary to her taking too much nifedipine. She acknowledge's lightheadedness despite lying on the stretcher. She denies chest pain, SOB, difficulty breathing, having a headache, or recent fevers, chills, or infections. PCP: Dr. Lozoya Copy Cutter: Dr. jones PSH: Catarct removal, hysterectomy, hernia repair, stents, aicd, breast biopsy Allergies: NKA, NKDA Social Hx: Denies smoking, drinking, or other substance usage. Past History - Past Medical History Allergies/Adverse Reactions: Allergies Allergy/AdvReac Type Severity Reaction Status Date / Time No Known Drug Allergies Allergy Verified 01/22/18 15:14 Home Medications: Ambulatory Orders Isosorbide Mononitrate [Isosorbide Mononitrate ER] 60 mg PO DAILY 08/29/16 Atorvastatin Ca [Lipitor] 80 mg PO HS tablet 09/02/16 Carvedilol [Coreg -] 25 mg PO BID tablet 09/02/16 Liraglutide [Victoza -] 1.8 mg SQ DAILY 10/28/16 Losartan Potassium [Cozaar -] 50 mg PO DAILY 07/28/17 Ergocalciferol (Vitamin D2) [Vitamin D2] 50,000 unit PO DAILY 07/29/17 Ferric Citrate [Auryxia] 210 mg PO DAILY 07/29/17 Nifedipine ER [Procardia XL -] 60 mg PO DAILY PRN 07/29/17 Furosemide [Lasix] 80 mg PO DAILY 01/22/18 Quetiapine Fumarate [Seroquel -] 25 mg PO HS 01/22/18 Aspirin [ASA -] 81 mg PO DAILY 05/27/18 Insulin (Novolog 70/30) [Novolog Mix 70/30 Vial] 28 ml SQ HS 05/27/18 Insulin (Novolog 70/30) [Novolog Mix 70/30 Vial] 38 ml SQ AM 05/27/18 Vortioxetine Hydrobromide [Trintellix] 10 mg PO DAILY 05/27/18 Anemia: Yes Asthma: Yes Cardiac Disorders: Yes ([place] X 3, CAD, Pacemaker/Selene) CVA: No COPD: No CHF: Yes (and pericardial effusion) Dementia: No Diabetes: Yes GI Disorders: Yes (ULCER,ESOPHAGITIS,HIATAL HERNIA) Disorders: Yes HTN: Yes Hypercholesterolemia: Yes Liver Disease: No Thyroid Disease: No - Surgical History Abdominal Surgery: (HERNIA REPAIR) Cardiac Surgery: Yes (STENT X5 , PACEMAKER/defibrilator) Orthopedic Surgery: Yes (left ankle fracture 2 chronic mild left ankle edema, unchanged with current) - Suicide/Smoking/Psychosocial Hx Smoking Status: No Smoking History: Never smoked Have you smoked in the past 12 months: No Number of Cigarettes Smoked Daily: 0 Information on smoking cessation initiated: No Hx Alcohol Use: No Drug/Substance Use Hx: No Substance Use Type: None Hx Substance Use Treatment: No Review of Systems - Review of Systems Able to Perform ROS?: Yes Comments:: CONSTITUTIONAL: Present: Fatigue Absent: fever, no chills EYES: Absent: visual changes ENT: Absent: ear pain, no sore throat CARDIOVASCULAR: Absent: chest pain, no palpitations RESPIRATORY: Absent: cough, no SOB GI: Absent: abdominal pain, no nausea, no vomiting, no constipation, no diarrhea GENITOURINARY: Absent: dysuria, no frequency, no hematuria MUSKULOSKELETAL: Absent: back pain, no arthralgia, no myalgia SKIN: Absent: rash NEURO: Absent: headache *Physical Exam - Vital Signs Last Vital Signs Temp Pulse Resp BP Pulse Ox 97.9 F 76 18 94/56 L 95 05/27/18 15:08 05/27/18 15:08 05/27/18 15:08 05/27/18 15:08 05/27/18 15:08 - Physical Exam Comments: GENERAL: Well-appearing, well-nourished. No apparent distress. HEENT: Normocephalic, atraumatic. PERRL, EOM intact. CARDIOVASCULAR: Normal S1, S2. Regular rate and rhythm. PULMONARY: No evidence of respiratory distress. Lungs clear to auscultation bilaterally. No wheezing, rales or rhonchi. ABDOMEN: There is a peritoneal dialysis port. Abdomen is distended with air but not tender. EXTREMITIES: Normal ROM in all four extremities. No gross deformities. SKIN: Warm, dry. No rash NEUROLOGICAL: No focal neurological deficits. ED Treatment Course - LABORATORY CBC & Chemistry Diagram: 05/27/18 16:15 05/27/18 16:15 Medical Decision Making - Medical Decision Making 72 yo F w a pmh of Ischemic cardiomyopathy s/p ICD placement ([facility]), CAD s/ p 5 stents, CHF, HTN, [place], HLD, Asthma, fatty liver, renal insufficiency, anemia , anxiety depression, chronic low back pain, DM presents to the ER with the chief complaint of lightheadedness. She saw Dr. Lozoya earlier today at which point her blood pressure was relatively high compared to normal ~ 168/90. She was instructed to take nifedipine whenever her BP goes up. So she took two 60 mg oral nifedipine pills (120 total) and then 1 hour later while she was at a dinner with her daughter and she felt lightheaded so came to the ER. Upon arrival to the ER she was hypotensive to 94/56. The patient believes this is 100 % secondary to her taking too much nifedipine. She acknowledge's lightheadedness despite lying on the stretcher. She denies chest pain, SOB, difficulty breathing, having a headache, or recent fevers, chills, or infections. VS: Hypotensive DDx IBNLT: Dehydration, medication side effect, CHF, orthostatic hypotension, electrolyte/metabolic derangement. Plan: Labs, EKG, CXR, Cardio consult, Admit Tele Obs. Labs: Similar to patient's baseline labs from prior admissions. EKG: Lateral ischemia similar to prior EKG in dec 2017 CXR: Show's pneumoperitoneum - Received call from radiologist Dr. Mcqueen - Patient has a pneumoperitoneam with air underneath the diaphragm. Patient knows her abdomen is distended and says it is from her peritoneal dialysis port. BP has normalized in the ED to 119/67 Will DC patient home with strict return precautions. *DC/Admit/Observation/Transfer Diagnosis at time of Disposition: Medication side effect, Pneumoperitoneum, Transient hypotension - Discharge Dispostion Disposition: HOME Condition at time of disposition: Stable Decision to Admit order: No - Referrals Referrals: Adeel Bhardwaj MD [Primary Care Provider] - - Patient Instructions Printed Discharge Instructions: DI for Hypotension Additional Instructions: You came into the ER after you took too much of your Nifedipine medication because you were lightheaded and had low blood pressure. We watched you in the ED until your blood pressure normalized and you were no longer symptomatic. IT IS EXTREMELY IMPORTANT TO COME BACK TO THE HOSPITAL IMMEDIATELY IF YOU EXPERIENCE ANY FURTHER DIZZINESS, LIGHTHEADEDNESS, CHEST PAIN, SHORTNESS OF BREATH OR ANY OTHER NEW OR WORSENING CONCERNS. Please follow up with both Dr. Bhardwaj and Dr. Jones in the next 2 to 4 days to make sure you are being taken care of and getting better. Thank you for coming to the [facility] ER. We hope you feel better soon! Print Language: SUDANESE - Post Discharge Activity
[2018-05-27] MEDS ORDERED: SODIUM CHLORIDE 0.9% 500 ML INFUS.BAG IV ONE (15:38)
[2018-05-27 16:27] LABS: BASO % 0.6 % (0-2.0); EOS % 5.8 % (0-4.5); HEMATOCRIT 30.6 % (32.4-45.2); HEMOGLOBIN 10.2 GM/dL (10.7-15.3); LYMPH % 21.5 % (8-40); MCH 27.9 pg (25.7-33.7); MCHC 33.2 g/dl (32.0-36.0); MEAN PLT VOLUME 11.5 fl (7.5-11.1); MONO % 5.2 % (3.8-10.2); NEUT % 66.9 % (42.8-82.8); PLATELET COUNT 129 K/MM3 (134-434); RBC 3.65 M/mm3 (3.60-5.2); RDW 15.9 % (11.6-15.6); WHITE BLOOD COUNT 11.4 K/mm3 (4.0-10.0)
[2018-05-27 16:39] LABS: INR 1.01 (0.83-1.09); PROTHROMBIN TIME (PATIENT) 11.9 SEC (9.7-13.0)
[2018-05-27 16:56] LABS: ALBUMIN 2.6 g/dl (3.4-5.0); ALK PHOS 130 U/L (45-117); BILIRUBIN,TOTAL 0.2 mg/dL (0.2-1); BLOOD UREA NITROGEN 53 mg/dL (7-18); CALCIUM 8.5 mg/dL (8.5-10.1); CHLORIDE 106 mmol/L (98-107); CO2 25 mmol/L (21-32); CREATININE 3.4 mg/dL (0.55-1.3); GLUCOSE,RANDOM 159 mg/dL (74-106); SGOT/AST 15 U/L (15-37); SGPT/ALT 23 U/L (13-61); SODIUM 140 mmol/L (136-145)
[2018-05-27 17:00] LABS: ANION GAP 10 MMOL/L (8-16)
--- NOTE | 2018-05-27 17:56 | PDOC ---
Attending Attestation - HPI HPI: 05/27/18 18:22 The patient is a 72-year-old female with past medical history significant for Ischemic cardiomyopathy s/p ICD placement ([place]), CAD s/p 5 stents, CHF, HTN , [place], HLD, Asthma, fatty liver, renal insufficiency, anemia, anxiety depression , chronic low back pain, DM presents to the emergency department with lightheadedness and weakness. The patient reports she was seen at the Dr. Bhardwaj s office earlier today, where she was noted to be hypertensive to 168/90. The patient states she took 2 of nifedipine, which was instructed to do whenever her BP goes up. The patient reports about an hour after, she went to dinner with her daughter at where she had a sudden onset of lightheadedness. Denies fever, chills, SOB, chest pain. Allergies: NKDA Social history: None reported PCP: Dr. Bhardwaj Cardiology: Dr. Jones <Neha Carrizales - Last Filed: 05/27/18 18:22> - Resident Resident Name: Bran Madrid - ED Attending Attestation I have performed the following: I have examined & evaluated the patient, The case was reviewed & discussed with the resident, I agree w/resident's findings & plan, Exceptions are as noted - Physicial Exam PE: 05/27/18 19:55 awake alert lungs clear bilaterally heart rrr no mrg abd soft nt nd. ext wwp. no edema. nuero alert oriented x 3. - Medical Decision Making 05/27/18 17:56 72 yo F with h;o cad, htn aicd, ckd here after taking 2 nefedipine ( 60mg ea) and feeling lightheaded aftwards. currently feeling improved. pt currently feels improved. bp has been stable. pt requesting to go home. labs unremarkable. pt with peritoneal air on xray however receives peritoneal dialysis is expected. 05/27/18 19:56 labs with creatinine, elevated pt on dialysis. mild wbc 11 however afebrile told to fu with dr briones, and check bp prior to taking medication. 05/27/18 19:58 <Evy Kellogg - Last Filed: 05/27/18 19:58>
[2018-05-27 19:31] VITALS: BP 119/67; PULSE 76; TEMP 98.1
--- NOTE | 2018-05-28 12:23 | EKG ---
Test Reason : Blood Pressure : / mmHG Vent. Rate : 075 BPM Atrial Rate : 075 BPM P-R Int : 208 ms QRS Dur : 104 ms QT Int : 418 ms P-R-T Axes : 023 017 112 degrees QTc Int : 466 ms NORMAL SINUS RHYTHM T WAVE ABNORMALITY, CONSIDER LATERAL ISCHEMIA ABNORMAL ECG WHEN COMPARED WITH ECG OF 22-JAN-2018 15:15, T WAVE INVERSION LESS EVIDENT IN LATERAL LEADS Confirmed by JUAN LUIS CEVALLOS, GRACE ([id number]) on 05/28/2018 12:23:01 PM Referred By: Confirmed By:GRACE MCKNIGHT MD
== END 2018-05-27 19:45 | disposition home or self-care (01) ==
LOC: JER 14:45
DX: I95.9 Hypotension, unspecified (principal); R42 Dizziness and giddiness; T46.1X5A Adverse effect of calcium-channel blockers, initial encounter; Y92.89 Other specified places as the place of occurrence of the external cause; I25.10 Atherosclerotic heart disease of native coronary artery without angina pectoris; I13.0 Hypertensive heart and chronic kidney disease with heart failure and stage 1 through stage 4 chronic kidney disease, or unspecified chronic kidney disease; N18.9 Chronic kidney disease, unspecified; I50.9 Heart failure, unspecified; Z95.5 Presence of coronary angioplasty implant and graft; E11.9 Type 2 diabetes mellitus without complications; Z79.4 Long term (current) use of insulin; I25.2 Old myocardial infarction; I25.5 Ischemic cardiomyopathy; E78.5 Hyperlipidemia, unspecified; J45.909 Unspecified asthma, uncomplicated; F41.8 Other specified anxiety disorders; F32.9 Major depressive disorder, single episode, unspecified; M54.5 Low back pain; G89.29 Other chronic pain; K76.0 Fatty (change of) liver, not elsewhere classified; Z95.810 Presence of automatic (implantable) cardiac defibrillator
CPT/HCPCS: 36415; 71045-TC-FY; 80053; 82550; 84484; 85025; 85610; 86850; 86900; 86901; 93005; 93010; 99284-25

== ENCOUNTER 2018-11-30 09:59 | Inpatient (IN) | payer OTHER, BC ==
[2018-11-30 10:06] VITALS: BMI 29.3
[2018-11-30] MEDS ORDERED: SODIUM CHLORIDE 0.9% 500 ML INFUS.BAG IV ONE (10:42)
[2018-11-30 11:11] LABS: BASO % 0.7 % (0-2.0); EOS % 2.2 % (0-4.5); HEMATOCRIT 29.7 % (32.4-45.2); HEMOGLOBIN 9.9 GM/dL (10.7-15.3); LYMPH % 22.4 % (8-40); MCH 28.1 pg (25.7-33.7); MCHC 33.4 g/dl (32.0-36.0); MEAN CELL VOLUME 84.1 fl (80-96); MEAN PLT VOLUME 12.1 fl (7.5-11.1); MONO % 4.8 % (3.8-10.2); NEUT % 69.9 % (42.8-82.8); PLATELET COUNT 123 K/MM3 (134-434); RBC 3.54 M/mm3 (3.60-5.2); RDW 15.2 % (11.6-15.6); WHITE BLOOD COUNT 8.8 K/mm3 (4.0-10.0)
--- NOTE | 2018-11-30 11:28 | PDOC ---
History of Present Illness - General Chief Complaint: Lightheaded Stated Complaint: Lightheaded Time Seen by Provider: 11/30/18 10:09 History Source: Patient Exam Limitations: No Limitations - History of Present Illness Initial Comments: 11/30/18 10:15 Sarah Chaudhry is a 73F with PMH ischemic cardiomyopathy s/p ICD, CAD/DE s/p CABG 5 stents 4 months ago, HTN, CHF, HLD, mild/intermittent asthma, ESRD on peritoneal dialysis presenting with an episode of lightheadedness. Seen by Drs. Jones, Benton, and Angelica. Sent in today by Dr. Bhardwaj for a mammogram and bone scan in preparation for a renal transplant, was sitting in the waiting room and suddenly felt dizzy when standing from sitting, immediately sat back down. Rapid response called and patient brought down to ED for further evaluation. Patient denies chest pain, palpitations, SOB, dizziness, LUND, fever/chills associated with event. No LOC or head injury. Says she has been having difficulty sleeping, chronic issue, on quietapine and melatonin, has been awake all of last night. Insomnia occurs about once a month sporadically. Last peritoneal dialysis on Thursday, gets it 3 days per week. Says she has been eating and drinking well, no nausea or vomiting. Denies any fever, abd pain, urinary sx, constipation, diarrhea. CABG done 4 months ago, has been recovering well and without issues. Last saw Dr. Jones last month, had stress test, no issues per patient. Past History - Past Medical History Allergies/Adverse Reactions: Allergies Allergy/AdvReac Type Severity Reaction Status Date / Time No Known Drug Allergies Allergy Verified 11/30/18 10:06 Home Medications: Ambulatory Orders Atorvastatin Ca [Lipitor] 80 mg PO HS tablet 09/02/16 Carvedilol [Coreg -] 25 mg PO BID tablet 09/02/16 Liraglutide [Victoza -] 1.8 mg SQ DAILY 10/28/16 Losartan Potassium [Cozaar -] 50 mg PO DAILY 07/28/17 Ferric Citrate [Auryxia] 210 mg PO DAILY 07/29/17 Furosemide [Lasix] 80 mg PO DAILY 01/22/18 Quetiapine Fumarate [Seroquel -] 25 mg PO HS 01/22/18 Aspirin [ASA -] 81 mg PO DAILY 05/27/18 Insulin (Novolog 70/30) [Novolog Mix 70/30 Vial -] 28 ml SQ HS 05/27/18 Insulin (Novolog 70/30) [Novolog Mix 70/30 Vial -] 38 ml SQ AM 05/27/18 Vortioxetine Hydrobromide [Trintellix] 20 mg PO DAILY 05/27/18 Folic Acid/Vit B Complex and C [Dialyvite Tablet] 1 each PO DAILY 11/30/18 Melatonin 3 mg PO HS 11/30/18 Anemia: Yes Asthma: Yes Cardiac Disorders: Yes (DE X 3, CAD, Pacemaker/[place]) CVA: No COPD: No CHF: Yes (and pericardial effusion) Dementia: No Diabetes: Yes GI Disorders: Yes (ULCER,ESOPHAGITIS,HIATAL HERNIA) Disorders: Yes HTN: Yes Hypercholesterolemia: Yes Liver Disease: No Thyroid Disease: No - Surgical History Abdominal Surgery: (HERNIA REPAIR) Cardiac Surgery: Yes (STENT X5 , PACEMAKER/defibrilator) Orthopedic Surgery: Yes (left ankle fracture 2 chronic mild left ankle edema, unchanged with current) - Psycho Social/Smoking Cessation Hx Smoking Status: No Smoking History: Never smoked Have you smoked in the past 12 months: No Number of Cigarettes Smoked Daily: 0 Information on smoking cessation initiated: No Hx Alcohol Use: No Drug/Substance Use Hx: No Substance Use Type: None Hx Substance Use Treatment: No Review of Systems - Review of Systems Able to Perform ROS?: Yes Constitutional: No: Chills, Fever, Weakness HEENTM: No: Recent change in vision, Throat Pain, Mouth Pain, Dental Problems Respiratory: No: Cough, Shortness of Breath Cardiac (ROS): Yes: Lightheadedness (pre-syncope). No: Chest Pain, Edema, Palpitations ABD/GI: No: Constipated, Diarrhea, Nausea, Poor Appetite, Poor Fluid Intake, Vomiting : No: Burning, Dysuria, Discharge, Frequency, Flank Pain, Hematuria, Incontinence, Pain, Urgency Musculoskeletal: No: Muscle Pain, Muscle Weakness Integumentary: No: Symptoms Reported Neurological: Yes: Weakness. No: Headache, Numbness, Paresthesia, Seizure, Unsteady Gait, Dizziness Endocrine: No: Symptoms Reported Hematologic/Lymphatic: No: Symptoms Reported All Other Systems: Reviewed and Negative *Physical Exam - Vital Signs Last Vital Signs Temp Pulse Resp BP Pulse Ox 98.2 F 75 18 112/63 96 11/30/18 10:03 11/30/18 10:55 11/30/18 10:55 11/30/18 10:55 11/30/18 10:55 - Physical Exam General Appearance: Yes: Nourished, Appropriately Dressed. No: Apparent Distress HEENT: positive: EOMI, Normal Voice, Symmetrical, Hearing Grossly Normal. negative: Scleral Icterus (R), Scleral Icterus (L), Muffled/Hoarse voice Neck: positive: Trachea midline, Normal Thyroid, Supple. negative: Rigid, Lymphadenopathy (R), Lymphadenopathy (L) Respiratory/Chest: positive: Lungs Clear, Normal Breath Sounds, Other (well- healed sternotomy incision, some stretch pike to axillae, chest non-tender to palpation). negative: Respiratory Distress, Accessory Muscle Use, Crackles, Rales, Rhonchi Cardiovascular: positive: Regular Rhythm, Regular Rate. negative: Murmur Vascular Pulses: Dorsalis-Pedis (R): 2+, Doralis-Pedis (L): 2+ Gastrointestinal/Abdominal: positive: Normal Bowel Sounds, Flat, Soft, Protuberent, Other (has peritoneal dialysis catheter in place lower abdomen). negative: Tender Musculoskeletal: positive: Normal Inspection. negative: CVA Tenderness Extremity: positive: Normal Capillary Refill, Normal Inspection, Normal Range of Motion. negative: Tender, Pelvis Stable, Coldness, Pedal Edema, Swelling, Calf Tenderness Integumentary: positive: Normal Color, Dry, Warm Neurologic: positive: Fully Oriented, Alert, Normal Mood/Affect, Normal Response. negative: Numbness, Confused, Disoriented Heart Score/ECG Review - History History: Slightly suspicious - Electrocardiogram EKG: Normal - Age Age: >/= 65 - Risk Factors Risk Factors Heart Score: Yes Hx Hypercholesterolemia, Yes Hx Hypertension, Yes Hx Obesity Based on the list above the patient has:: >/=3 risk factors or Hx atherosclerotic disease - Troponin Troponin: 1-3x normal limit - Score Heart Score - Total: 5 - ECG Intrepretation Rhythm: Regular Rhythm - Edwards Edwards: Normal - P and WV Prolonged WV Interval: 1st Degree Block(>20mils) ED Treatment Course - LABORATORY CBC & Chemistry Diagram: 11/30/18 10:49 11/30/18 10:49 - ADDITIONAL ORDERS Additional order review: 11/30/18 10:49 RBC 3.54 L MCV 84.1 MCHC 33.4 RDW 15.2 MPV 12.1 H Neutrophils % 69.9 Lymphocytes % 22.4 Monocytes % 4.8 Eosinophils % 2.2 Basophils % 0.7 - RADIOLOGY Radiology Studies Ordered: Category Date Time Status ABDOMEN FLAT & UPRIGHT [RAD] Stat Radiology 11/30/18 11:22 Ordered CHEST X-RAY PORTABLE* [RAD] Stat Radiology 11/30/18 10:37 Completed - Medications Given in the ED: ED Medications Discontinued Medications Generic Name Dose Route Start Last Admin Trade Name Freq PRN Reason Stop Dose Admin Sodium Chloride 250 ml 11/30/18 10:42 11/30/18 11:03 Normal Saline - IV 11/30/18 10:43 250 ml ONCE ONE Administration Medical Decision Making - Medical Decision Making 11/30/18 10:15 Sarah Chaudhry is a 73F with PMH ischemic cardiomyopathy s/p ICD, CAD/DE s/p CABG 5 stents 4 months ago, HTN, CHF, HLD, mild/intermittent asthma, ESRD on peritoneal dialysis presenting with an episode of lightheadedness. Patient presentation is most concerning for a cardiac pathology given her recent CABG, significant cardiac history, and new onset syncope. Neurological etiology less likely, was not having typical sz symptoms and is not complaining of other neurological deficits. Ddx includes hypothyroidism vs. dehydration, vs. electrolyte abnormality vs. malnutrition. Patient is non-toxic appearing, in no acute distress, and has no evidence of HF exacerbation on exam. Will evaluate via: ECG CMP CBC CP BNP Coags TSH ECG shows sinus rhythm with 1st degree AV block, HR 76, WV 224, QTc 472, no ischemic changes, consistent with prior ECG. CXR shows enlarged heart with ICD inplace with free air under R hemidiaphragm, consistent with prior studies and likely 2/2 peritoneal dialysis port. Getting f/u supine/upright KUB to characterize air vs. bowel. Supine KUB shows no evidence of pneumoperitoneum. Cr 3.8 consistent with baseline, but has trop 0.09 up from last 0.04, BNP >8000. 1st trop at 10:50, next at ~15:00. Patient requires admission for further evaluation of her troponin elevation and syncope in the setting of recent major cardiac procedure, HEART score is 4 and high risk of MACE if discharged. Requires repeat echocardiogram and troponin trending to evaluate for structural heart damage and worsening HF. Spoke to Sp Martinez NP for admission to tele under Dr. Bhardwaj. Consult placed with Dr. Jones with cardiology for evaluation. 11/30/18 14:24 Dr. Jones in ED to evaluate, requesting Echo and 2nd troponin. 11/30/18 16:34 Echo grossly normal per Dr. Jones, who contacted Dr. Bhardwaj concerning this and possibility pt could be discharged home. Dr. Bhardwaj still wants admission for eval. 2nd trop 0.09, no change. Discharge - Discharge Information Problems reviewed: Yes Clinical Impression/Diagnosis: Pre-syncope, Elevated troponin Condition: Stable - Admission Yes - Follow up/Referral - Patient Discharge Instructions - Post Discharge Activity
[2018-11-30 11:36] LABS: INR 0.98 (0.83-1.09); PROTHROMBIN TIME (PATIENT) 11.6 SEC (9.7-13.0)
[2018-11-30 11:38] LABS: ACTIVATED PTT 31.4 SECONDS (25.2-36.5)
[2018-11-30 11:54] LABS: ALBUMIN 2.9 g/dl (3.4-5.0); BILIRUBIN,TOTAL 0.5 mg/dL (0.2-1); BLOOD UREA NITROGEN 51.3 mg/dL (7-18); CALCIUM 8.7 mg/dL (8.5-10.1); CREATININE 3.8 mg/dL (0.55-1.3); N-TERMINAL BNP 8350.7 pg/ml (5-125); POTASSIUM 4.1 mmol/L (3.5-5.1); TOT PROT 6.1 g/dl (6.4-8.2)
--- NOTE | 2018-11-30 12:04 | EKG ---
Test Reason : Blood Pressure : / mmHG Vent. Rate : 076 BPM Atrial Rate : 076 BPM P-R Int : 224 ms QRS Dur : 116 ms QT Int : 420 ms P-R-T Axes : 055 018 135 degrees QTc Int : 472 ms SINUS RHYTHM WITH 1ST DEGREE A-V BLOCK PROLONGED QT ABNORMAL ECG WHEN COMPARED WITH ECG OF 27-MAY-2018 14:50, NO SIGNIFICANT CHANGE WAS FOUND Confirmed by Siddharth Salas ([id number]) on 11/30/2018 12:04:00 PM Referred By: Confirmed By:Siddharth Salas
--- NOTE | 2018-11-30 12:57 | PDOC ---
Documentation entered by Marco A Nayak SCRIBE, acting as scribe for Gen Sanchez MD. Gen Sanchez MD: This documentation has been prepared by the Nael mota Daniel, SCRIBE, under my direction and personally reviewed by me in its entirety. I confirm that the documentation accurately reflects all work, treatment, procedures, and medical decision making performed by me. Attending Attestation - Resident Resident Name: Bernardino Vaughan - ED Attending Attestation I have performed the following: I have examined & evaluated the patient, The case was reviewed & discussed with the resident, I agree w/resident's findings & plan, Exceptions are as noted - HPI HPI: 11/30/18 11:10 The patient is a 73 year old female with a past medical history of Ischemic cardiomyopathy s/p ICD placement, CAD s/p 5 stents, CHF, HTN, [place], HLD, Asthma, fatty liver, ESRD (peritoneal dialysis), anemia, anxiety, depression, chronic low back pain, and diabetes here today for evaluation of lightheadedness. The patient reports that she was sent in by Dr. Bhardwaj for a bone density test and a mammogram. She was upstairs when she felt lightheaded after standing up too quickly. She denies any loc and notes prior episodes of lightheadedness which she attributes to difficulty sleeping. Rapid response was called and the patient was sent down to the ED. Patient currently states that she feels fine and denies any pain. Patient denies headache. Denies fever, chills. Denies chest pain, shortness of breath. Denies nausea, vomiting, diarrhea, abdominal pain. Allergies: NKDA PCP: Adeel Bhardwaj - Physicial Exam PE: 11/30/18 11:10 Vitals: Triage vital signs reviewed General Appearance: No acute distress, well nourished, well developed Head: Atraumatic Neck: Supple; No nuchal rigidity Chest Wall: Nontender Cardiac: Regular rate and rhythm, no murmurs, no rubs, no gallops Lungs: Clear to auscultation bilateral, good air movement bilaterally Abdomen: Soft, nondistended, nontender to palpation Extremities: Full range of motion to all extremities, no cyanosis, clubbing, or edema Skin: Warm and dry, no rashes or lesions, no rash, no petechiae Neuro: AOX3; Cranial Nerves 2-12 grossly intact, Strength intact to all extremities, Sensation intact to all extremities Psych: Normal mood, normal affect - Medical Decision Making 11/30/18 16:29 73 years old with multiple medical problems presents with near syncopal event Patient feels well, labs notable for elevated BNP as well as troponin of indeterminate value given age comorbidities and elevated troponin will observe overnight to trend serial troponins for further evaluation of near syncope Heart Score/ECG Review - ECG Impressions Comment:: 11/30/18 16:[address] elevations no T wave inversions Interpreted by me. First-degree AV block
--- NOTE | 2018-11-30 15:07 | CON.CARD ---
Consult Consult Specialty:: cardiology Reason for Consultation:: lightheaded; TNI elevation - History of Present Illness Chief Complaint: Pt A&Ox3; asymptomatic presently. Her daughter, Sudha, is at bedside. History of Present Illness: The patient is a 73 year old female (b. [place]) with a past medical history of Ischemic cardiomyopathy, s/p [place]-->s/p ICD placement, CAD s/p 5 stents, CABG 2019 , systolic/diastolic CHF, HTN, [place], HLD, Asthma, fatty liver, ESRD (peritoneal dialysis; awaits renal transplant), anemia, anxiety, depression, chronic low back pain, and diabetes here today for evaluation of lightheadedness. The patient reports that she was sent in by Dr. Bhardwaj for a bone density test and a mammogram. She was upstairs when she felt lightheaded after standing up too quickly. She denies any loc and notes prior episodes of lightheadedness which she attributes to difficulty sleeping. Rapid response was called and the patient was sent down to the ED. Patient currently states that she feels fine and denies any pain. Patient denies headache. Denies fever, chills. Denies chest pain, shortness of breath. Denies nausea, vomiting, diarrhea, abdominal pain. Allergies: NKDA - History Source History Provided By: Patient, Family Member, Medical Record Limitations to Obtaining History: No Limitations - Past Medical History MEDICAL ART THERAPIST: Yes: Syncope. No: Alzheimer's Cardio/Vascular: Yes: CAD, CHF, HTN, [place], Hyperlipdemia, Other Pulmonary: Yes: Asthma Gastrointestinal: Yes: Hiatal Hernia Hepatobiliary: Yes: Other (fatty liver) Renal/: Yes: Renal Inusuff Psych: Yes: Anxiety, Depression Musculoskeletal: Yes: Chronic low back pain Endocrine: Yes: Diabetes Mellitus - Past Surgical History Past Surgical History: Yes: Cataract Removal, Hysterectomy, Hernia Repair, Stent , AICD, Colonoscopy, Breast Biopsy - Alcohol/Substance Use Hx Alcohol Use: No History of Substance Use: reports: None - Smoking History Smoking history: Never smoked Have you smoked in the past 12 months: No Aproximately how many cigarettes per day: 0 - Social History Usual Living Arrangement: Alone ADL: Independent Occupation: retired teacher History of Recent Travel: No Home Medications - Allergies Allergies/Adverse Reactions: Allergies Allergy/AdvReac Type Severity Reaction Status Date / Time No Known Drug Allergies Allergy Verified 11/30/18 10:06 - Home Medications Home Medications: Ambulatory Orders Atorvastatin Ca [Lipitor] 80 mg PO HS tablet 09/02/16 Carvedilol [Coreg -] 25 mg PO BID tablet 09/02/16 Liraglutide [Victoza -] 1.8 mg SQ DAILY 10/28/16 Losartan Potassium [Cozaar -] 50 mg PO DAILY 07/28/17 Ferric Citrate [Auryxia] 210 mg PO DAILY 07/29/17 Furosemide [Lasix] 80 mg PO DAILY 01/22/18 Quetiapine Fumarate [Seroquel -] 25 mg PO HS 01/22/18 Aspirin [ASA -] 81 mg PO DAILY 05/27/18 Insulin (Novolog 70/30) [Novolog Mix 70/30 Vial] 28 ml SQ HS 05/27/18 Insulin (Novolog 70/30) [Novolog Mix 70/30 Vial] 38 ml SQ AM 05/27/18 Vortioxetine Hydrobromide [Trintellix] 20 mg PO DAILY 05/27/18 Folic Acid/Vit B Complex and C [Dialyvite Tablet] 1 each PO DAILY 11/30/18 Melatonin 3 mg PO HS 11/30/18 Vital Signs: Vital Signs Temperature 98.2 F 11/30/18 10:03 Pulse Rate 72 11/30/18 14:38 Respiratory Rate 18 11/30/18 14:38 Blood Pressure 136/66 11/30/18 14:38 O2 Sat by Pulse Oximetry (%) 98 11/30/18 14:38 - Other Data Labs, Other Data: CBC, BMP 11/30/18 10:49 11/30/18 10:49 INR, PTT INR 0.98 (0.83-1.09) 11/30/18 10:49 Troponin, BNP 11/30/18 11/30/18 10:49 10:49 Troponin I 0.09 H B-Natriuretic Peptide 8350.7 H Troponin, BNP 11/30/18 11/30/18 10:49 10:49 Troponin I 0.09 H B-Natriuretic Peptide 8350.7 H Problem List - Problems (1) Elevated troponin Assessment/Plan: mild increase to 0.09 (was 0.05 several months ago, prior to CABG); elevated BNP. ECHO for LVEF, wall motion F/u 2nd TNI. Code(s): R79.89 - OTHER SPECIFIED ABNORMAL FINDINGS OF BLOOD CHEMISTRY (2) Near syncope Code(s): R55 - SYNCOPE AND COLLAPSE (3) Chronic combined systolic and diastolic CHF (congestive heart failure) Code(s): I50.42 - CHRONIC COMBINED SYSTOLIC AND DIASTOLIC HRT FAIL (4) S/P CABG (coronary artery bypass graft) Code(s): Z95.1 - PRESENCE OF AORTOCORONARY BYPASS GRAFT (5) Anxiety and depression Code(s): F41.9 - ANXIETY DISORDER, UNSPECIFIED; F32.9 - MAJOR DEPRESSIVE DISORDER, SINGLE EPISODE, UNSPECIFIED (6) Overweight Code(s): E66.3 - OVERWEIGHT (7) ESRD on peritoneal dialysis Code(s): N18.6 - END STAGE RENAL DISEASE; Z99.2 - DEPENDENCE ON RENAL DIALYSIS (8) ESRD (end stage renal disease) Code(s): N18.6 - END STAGE RENAL DISEASE
--- NOTE | 2018-11-30 16:22 | CONSULT ---
Consult Consult Specialty:: Nephrology Reason for Consultation:: CKD - History of Present Illness Chief Complaint: lightheadedness History of Present Illness: Pt is a 73 year old female with pmhx of ckd, chf, cad, hld, asthma, fatty liver , esrd with pd who presents to the ER with light headedness. I was called to evaluate her for elevated creatinine. She was in the hospital for a mamogram dobbins she felt light headed after standing up too quickly. Rapid response was called and she was sent to the ER. She has been on PD for the last 7 months. - History Source History Provided By: Patient, Medical Record - Past Medical History RADIOLOGY THERAPIST: Yes: Syncope. No: Alzheimer's Cardio/Vascular: Yes: CAD, CHF, HTN, [place], Hyperlipdemia, Other Pulmonary: Yes: Asthma Gastrointestinal: Yes: Hiatal Hernia Hepatobiliary: Yes: Other (fatty liver) Renal/: Yes: Renal Inusuff Psych: Yes: Anxiety, Depression Musculoskeletal: Yes: Chronic low back pain Endocrine: Yes: Diabetes Mellitus - Past Surgical History Past Surgical History: Yes: Cataract Removal, Hysterectomy, Hernia Repair, Stent , AICD, Colonoscopy, Breast Biopsy - Alcohol/Substance Use Hx Alcohol Use: No History of Substance Use: reports: None - Smoking History Smoking history: Never smoked Have you smoked in the past 12 months: No Aproximately how many cigarettes per day: 0 - Social History Usual Living Arrangement: Alone ADL: Independent Occupation: retired teacher History of Recent Travel: No Home Medications - Allergies Allergies/Adverse Reactions: Allergies Allergy/AdvReac Type Severity Reaction Status Date / Time No Known Drug Allergies Allergy Verified 11/30/18 10:06 - Home Medications Home Medications: Ambulatory Orders Atorvastatin Ca [Lipitor] 80 mg PO HS tablet 09/02/16 Carvedilol [Coreg -] 25 mg PO BID tablet 09/02/16 Liraglutide [Victoza -] 1.8 mg SQ DAILY 10/28/16 Losartan Potassium [Cozaar -] 50 mg PO DAILY 07/28/17 Ferric Citrate [Auryxia] 210 mg PO DAILY 07/29/17 Furosemide [Lasix] 80 mg PO DAILY 01/22/18 Quetiapine Fumarate [Seroquel -] 25 mg PO HS 01/22/18 Aspirin [ASA -] 81 mg PO DAILY 05/27/18 Insulin (Novolog 70/30) [Novolog Mix 70/30 Vial] 28 ml SQ HS 05/27/18 Insulin (Novolog 70/30) [Novolog Mix 70/30 Vial] 38 ml SQ AM 05/27/18 Vortioxetine Hydrobromide [Trintellix] 20 mg PO DAILY 05/27/18 Folic Acid/Vit B Complex and C [Dialyvite Tablet] 1 each PO DAILY 11/30/18 Melatonin 3 mg PO HS 11/30/18 Family Medical History Family History: Denies Review of Systems - Review of Systems Constitutional: reports: Malaise Eyes: reports: No Symptoms HENT: reports: No Symptoms Neck: reports: No Symptoms Cardiovascular: reports: No Symptoms Respiratory: reports: No Symptoms Gastrointestinal: reports: No Symptoms Genitourinary: reports: No Symptoms Musculoskeletal: reports: No Symptoms Integumentary: reports: No Symptoms Neurological: reports: No Symptoms Endocrine: reports: No Symptoms Hematology/Lymphatic: reports: No Symptoms Psychiatric: reports: No Symptoms Physical Exam Vital Signs: Vital Signs Temperature 98.2 F 11/30/18 10:03 Pulse Rate 72 11/30/18 14:38 Respiratory Rate 18 11/30/18 14:38 Blood Pressure 136/66 11/30/18 14:38 O2 Sat by Pulse Oximetry (%) 98 11/30/18 14:38 Constitutional: Yes: Calm Eyes: Yes: Conjunctiva Clear HENT: Yes: Atraumatic Neck: Yes: Supple Cardiovascular: Yes: S1, S2 Respiratory: Yes: CTA Bilaterally Gastrointestinal: Yes: Other (pd catheter) Renal/: Yes: WNL Musculoskeletal: Yes: WNL Edema: No Neurological: Yes: Oriented Psychiatric: Yes: Oriented Labs: CBC, BMP 11/30/18 10:49 11/30/18 10:49 Laboratory Tests 08/18/17 08/31/17 09/07/17 14:00 14:15 11:40 Hgb Creatinine 3.2 H 3.6 H 3.2 H 11/03/17 01/22/18 01/23/18 15:21 16:06 05:30 Hgb Creatinine 3.1 H 3.6 H 3.9 H 01/24/18 05/27/18 11/30/18 05:30 16:15 10:49 Hgb 9.9 L Creatinine 4.0 H 3.4 H 11/30/18 10:49 Hgb Creatinine 3.8 H Imaging - Results Chest X-ray: Report Reviewed Problem List - Problems (1) ESRD on peritoneal dialysis Code(s): N18.6 - END STAGE RENAL DISEASE; Z99.2 - DEPENDENCE ON RENAL DIALYSIS (2) Elevated troponin Code(s): R79.89 - OTHER SPECIFIED ABNORMAL FINDINGS OF BLOOD CHEMISTRY (3) Near syncope Code(s): R55 - SYNCOPE AND COLLAPSE Assessment/Plan Impression 1. ESRD on PD 2. CAD 3. DM 4. asthma 5. hyperlipidemia 6. HTN 7. positive heb b core 8. near syncope Plan - cardio workup in progress - pt does PD at home - will order exchanges if she stays in the hospital - called and spoke to Dr Hopkins with whom she follows, she has an appointment to see the nurse tomorrow and to see Dr Hopkins next Thursday - monitor BP
--- NOTE | 2018-11-30 16:22 | ECHO ---
Name: MISAEL ESTEVEZ Exam:Adult Echocardiogram Study Date: 11/30/2018 03:06 PM Age: 73 yrs Reason For Study: chf cad esrd lightheaded Height: 66 in Weight: 182 lb BSA: 1.9 m2 MMode/2D Measurements & Calculations IVSd: 1.6 cm Ao root diam: 2.6 cm LVIDd: 4.5 cm LA dimension: 4.3 cm LVIDs: 3.3 cm LVPWd: 1.4 cm LVPWs: 1.9 cm EDV(Teich): 93.0 ml ESV(Teich): 44.1 ml LVOT diam: 2.2 cm LAV (MOD-bp): 63.0 ml Doppler Measurements & Calculations MV E max oseas: 88.8 cm/sec Ao V2 max: 156.9 cm/sec MV A max oseas: 119.3 cm/sec Ao max P.9 mmHg MV E/A: 0.74 Ao V2 mean: 116.1 cm/sec MV dec time: 0.14 sec Ao mean P.9 mmHg Ao V2 VTI: 33.9 cm JANETTE(I,D): 2.0 cm2 JNAETTE(V,D): 2.1 cm2 LV V1 max P.8 mmHg MR max oseas: 617.0 cm/sec LV V1 mean P.6 mmHg MR max P.3 mmHg LV V1 max: 84.4 cm/sec LV V1 mean: 59.1 cm/sec LV V1 VTI: 17.5 cm SV(LVOT): 68.2 ml PA V2 max: 106.3 cm/sec PA max P.5 mmHg Left Ventricle Low normal LV function. Moderate LVH. Right Ventricle The right ventricular systolic function is normal. ICD wire seen in RV. Atria Normal left and right atrial size and function. Mitral Valve The mitral valve leaflets appear normal. There is no evidence of stenosis, fluttering, or prolapse. T here is mild mitral regurgitation. Tricuspid Valve The tricuspid valve is not well visualized, but is grossly normal. There is trace tricuspid regurgita tion. Aortic Valve Leaflet thickening without aortic stenosis. Pulmonic Valve The pulmonic valve is not well seen, but is grossly normal. Great Vessels The aortic root is normal size. Pericardium/Pleura There is no pericardial effusion. Interpretation Summary Low normal LV function. Moderate LVH ICD wire seen in RV Normal left and right atrial size and function. The mitral valve leaflets appear normal. There is no evidence of stenosis, fluttering, or prolapse. There is mild mitral regurgitation. There is trace tricuspid regurgitation. Leaflet thickening without aortic stenosis The pulmonic valve is not well seen, but is grossly normal. The aortic root is normal size. There is no pericardial effusion. EF 51% MD Marco A Ceballos 11/30/2018 04:22 PM
--- NOTE | 2018-11-30 16:28 | HP ---
Admitting History and Physical - Primary Care Physician PCP: Adeel Bhardwaj - Admission Chief Complaint: Dizziness History of Present Illness: Patient is a 73 y/o female with past medical history of ischemic cardiomyopathy s/p ICD, CAD/IN s/p CABG with 5 stents, HTN, CHF, HLD, asthma, ESRD on peritoneal dialysis. Patient presented to ER after having experienced lightheadedness. Patient was waiting to have Bone scan performed and when she stood up she felt lightheaded and EXAMINATION SCORER was called for her. Patient denied chest pain, SOB, nausea, vomiting with dizziness. History Source: Patient Limitations to Obtaining History: No Limitations - Past Medical History TOURIST ADVISER: Yes: Syncope. No: Alzheimer's Cardiovascular: Yes: CAD, CHF, HTN, IN, Hyperlipdemia, Other Pulmonary: Yes: Asthma Gastrointestinal: Yes: Hiatal Hernia Hepatobiliary: Yes: Other (fatty liver) Renal/: Yes: Renal Inusuff Heme/Onc: Yes: Anemia Psych: Yes: Anxiety, Depression Musculoskeletal: Yes: Chronic low back pain Endocrine: Yes: Diabetes Mellitus - Past Surgical History Past Surgical History: Yes: Cataract Removal, Hysterectomy, Hernia Repair, Stent , AICD, Colonoscopy, Breast Biopsy - Smoking History Smoking history: Never smoked Have you smoked in the past 12 months: No Aproximately how many cigarettes per day: 0 - Alcohol/Substance Use Hx Alcohol Use: No History of Substance Use: reports: None - Social History ADL: Independent Occupation: retired teacher History of Recent Travel: No Home Medications - Allergies Allergies/Adverse Reactions: Allergies Allergy/AdvReac Type Severity Reaction Status Date / Time No Known Drug Allergies Allergy Verified 11/30/18 10:06 - Home Medications Home Medications: Ambulatory Orders Atorvastatin Ca [Lipitor] 80 mg PO HS tablet 09/02/16 Carvedilol [Coreg -] 25 mg PO BID tablet 09/02/16 Liraglutide [Victoza -] 1.8 mg SQ DAILY 10/28/16 Losartan Potassium [Cozaar -] 50 mg PO DAILY 07/28/17 Ferric Citrate [Auryxia] 210 mg PO DAILY 07/29/17 Furosemide [Lasix] 80 mg PO DAILY 01/22/18 Quetiapine Fumarate [Seroquel -] 25 mg PO HS 01/22/18 Aspirin [ASA -] 81 mg PO DAILY 05/27/18 Insulin (Novolog 70/30) [Novolog Mix 70/30 Vial] 28 ml SQ HS 05/27/18 Insulin (Novolog 70/30) [Novolog Mix 70/30 Vial] 38 ml SQ AM 05/27/18 Vortioxetine Hydrobromide [Trintellix] 20 mg PO DAILY 05/27/18 Folic Acid/Vit B Complex and C [Dialyvite Tablet] 1 each PO DAILY 11/30/18 Melatonin 3 mg PO HS 11/30/18 Review of Systems - Review of Systems Constitutional: reports: No Symptoms Eyes: reports: No Symptoms HENT: reports: No Symptoms Neck: reports: No Symptoms Cardiovascular: reports: No Symptoms Respiratory: reports: No Symptoms Gastrointestinal: reports: No Symptoms Genitourinary: reports: No Symptoms Breasts: reports: No Symptoms Reported Musculoskeletal: reports: No Symptoms Integumentary: reports: No Symptoms Neurological: reports: No Symptoms Endocrine: reports: No Symptoms Hematology/Lymphatic: reports: No Symptoms Psychiatric: reports: No Symptoms Physical Examination Vital Signs: Vital Signs Temperature 98.2 F 11/30/18 10:03 Pulse Rate 72 11/30/18 14:38 Respiratory Rate 18 11/30/18 14:38 Blood Pressure 136/66 11/30/18 14:38 O2 Sat by Pulse Oximetry (%) 98 11/30/18 14:38 Constitutional: Yes: No Distress, Calm Eyes: Yes: Conjunctiva Clear HENT: Yes: Atraumatic Neck: Yes: Supple Cardiovascular: Yes: Regular Rate and Rhythm Respiratory: Yes: Regular, CTA Bilaterally, Stridor Gastrointestinal: Yes: Soft, Other (catheter for peritoneal dialysis) Musculoskeletal: Yes: WNL Extremities: Yes: WNL Edema: No Neurological: Yes: Alert, Oriented Psychiatric: Yes: Alert, Oriented Labs: CBC, BMP 11/30/18 10:49 11/30/18 10:49 Problem List - Problems (1) ESRD on peritoneal dialysis Assessment/Plan: -Renal consult -BUN/Cr 51.3/3.8 -monitor renal function Code(s): N18.6 - END STAGE RENAL DISEASE; Z99.2 - DEPENDENCE ON RENAL DIALYSIS (2) Elevated troponin Assessment/Plan: -Cardiology consult -troponin 0.09 x 2 -Echo Code(s): R79.89 - OTHER SPECIFIED ABNORMAL FINDINGS OF BLOOD CHEMISTRY (3) Dizziness Assessment/Plan: -Cardiology consult -Echo -tele monitoring Code(s): R42 - DIZZINESS AND GIDDINESS
--- NOTE | 2018-11-30 17:55 | DS ---
Physical Examination Vital Signs: Vital Signs Temperature 98.2 F 11/30/18 10:03 Pulse Rate 72 11/30/18 14:38 Respiratory Rate 18 11/30/18 14:38 Blood Pressure 136/66 11/30/18 14:38 O2 Sat by Pulse Oximetry (%) 98 11/30/18 14:38 Findings/Remarks: Laboratory Tests 11/30/18 11/30/18 11/30/18 10:49 10:49 10:49 WBC 8.8 RBC 3.54 L Hgb 9.9 L Hct 29.7 L MCV 84.1 MCH 28.1 MCHC 33.4 RDW 15.2 Plt Count 123 L MPV 12.1 H Absolute Neuts (auto) 6.1 Neutrophils % 69.9 Lymphocytes % 22.4 Monocytes % 4.8 Eosinophils % 2.2 Basophils % 0.7 Nucleated RBC % 0 PT with INR INR PTT (Actin FS) Sodium 140 Potassium 4.1 Chloride 109 H Carbon Dioxide 23 Anion Gap 9 BUN 51.3 H Creatinine 3.8 H Est GFR (CKD-EPI)AfAm 12.89 Est GFR (CKD-EPI)NonAf 11.12 Random Glucose 157 H Calcium 8.7 Total Bilirubin 0.5 AST 19 ALT 26 Alkaline Phosphatase 151 H Creatine Kinase 97 Troponin I 0.09 H B-Natriuretic Peptide 8350.7 H Total Protein 6.1 L Albumin 2.9 L TSH 1.45 11/30/18 11/30/18 10:49 14:50 WBC RBC Hgb Hct MCV MCH MCHC RDW Plt Count MPV Absolute Neuts (auto) Neutrophils % Lymphocytes % Monocytes % Eosinophils % Basophils % Nucleated RBC % PT with INR 11.60 INR 0.98 PTT (Actin FS) 31.4 Sodium Potassium Chloride Carbon Dioxide Anion Gap BUN Creatinine Est GFR (CKD-EPI)AfAm Est GFR (CKD-EPI)NonAf Random Glucose Calcium Total Bilirubin AST ALT Alkaline Phosphatase Creatine Kinase Troponin I 0.09 H B-Natriuretic Peptide Total Protein Albumin TSH Constitutional: Yes: No Distress, Calm Eyes: Yes: Conjunctiva Clear HENT: Yes: Atraumatic Neck: Yes: Supple Cardiovascular: Yes: Regular Rate and Rhythm Respiratory: Yes: Regular, CTA Bilaterally Gastrointestinal: Yes: Normal Bowel Sounds, Soft Musculoskeletal: Yes: WNL Extremities: Yes: WNL Edema: No Neurological: Yes: Alert, Oriented Psychiatric: Yes: Alert, Oriented Labs: CBC, BMP 11/30/18 10:49 11/30/18 10:49 Discharge Summary Problems reviewed: Yes Reason For Visit: PRE SYNCOPE,ELEVATED TROPONIN LEVEL Current Active Problems Anxiety and depression (Acute) Chronic combined systolic and diastolic CHF (congestive heart failure) (Acute) ESRD on peritoneal dialysis (Acute) Elevated troponin (Acute) Near syncope (Acute) Overweight (Acute) S/P CABG (coronary artery bypass graft) (Acute) Hospital Course: Patient is a 73 y/o female with past medical history of ischemic cardiomyopathy s/p ICD, CAD/PR s/p CABG with 5 stents, HTN, CHF, HLD, asthma, ESRD on peritoneal dialysis. Patient presented to ER after having experienced lightheadedness. Patient was waiting to have Bone scan performed and when she stood up she felt lightheaded and MEDIA EXECUTIVE was called for her. Patient denied chest pain, SOB, nausea, vomiting with dizziness. Patient had Echocardiogram performed and EF 51%. Patient evaluated by cardiology and cleared from their standpoint. Condition: Stable - Instructions Diet, Activity, Other Instructions: follow up with pmd in 1 week follow up with cardiology in 1 week follow up [facility] office lead as scheduled return to ER if develop chest pain, respiratory distress, severe pain Referrals: Adeel Bhardwaj MD [Primary Care Provider] - El Jones MD [Staff Physician] - Disposition: HOME - Home Medications Comprehensive Discharge Medication List: Ambulatory Orders Atorvastatin Ca [Lipitor] 80 mg PO HS tablet 09/02/16 Carvedilol [Coreg -] 25 mg PO BID tablet 09/02/16 Liraglutide [Victoza -] 1.8 mg SQ DAILY 10/28/16 Losartan Potassium [Cozaar -] 50 mg PO DAILY 07/28/17 Ferric Citrate [Auryxia] 210 mg PO DAILY 07/29/17 Furosemide [Lasix] 80 mg PO DAILY 01/22/18 Quetiapine Fumarate [Seroquel -] 25 mg PO HS 01/22/18 Aspirin [ASA -] 81 mg PO DAILY 05/27/18 Insulin (Novolog 70/30) [Novolog Mix 70/30 Vial] 28 ml SQ HS 05/27/18 Insulin (Novolog 70/30) [Novolog Mix 70/30 Vial] 38 ml SQ AM 05/27/18 Vortioxetine Hydrobromide [Trintellix] 20 mg PO DAILY 05/27/18 Folic Acid/Vit B Complex and C [Dialyvite Tablet] 1 each PO DAILY 11/30/18 Melatonin 3 mg PO HS 11/30/18
[2018-11-30 18:09] VITALS: BP 149/78; PULSE 68; TEMP 97.8
== END 2018-11-30 18:30 | disposition home or self-care (01) | DRG 312 ==
LOC: JER 09:59 → JERBED 12:14
PROVIDERS: ADMIT Family Medicine; ATTEND Family Medicine
DX: R55 Syncope and collapse (principal); N18.6 End stage renal disease; I13.2 Hypertensive heart and chronic kidney disease with heart failure and with stage 5 chronic kidney disease, or end stage renal disease; I50.42 Chronic combined systolic (congestive) and diastolic (congestive) heart failure; E11.22 Type 2 diabetes mellitus with diabetic chronic kidney disease; I25.10 Atherosclerotic heart disease of native coronary artery without angina pectoris; E78.5 Hyperlipidemia, unspecified; I25.5 Ischemic cardiomyopathy; K76.0 Fatty (change of) liver, not elsewhere classified; I44.0 Atrioventricular block, first degree; J45.20 Mild intermittent asthma, uncomplicated; D64.9 Anemia, unspecified; F41.8 Other specified anxiety disorders; K44.9 Diaphragmatic hernia without obstruction or gangrene; M54.5 Low back pain; R79.89 Other specified abnormal findings of blood chemistry; E66.3 Overweight; Z68.29 Body mass index [BMI] 29.0-29.9, adult; I25.2 Old myocardial infarction; Z95.810 Presence of automatic (implantable) cardiac defibrillator; Z95.1 Presence of aortocoronary bypass graft; Z95.5 Presence of coronary angioplasty implant and graft; Z99.2 Dependence on renal dialysis
CPT/HCPCS: 36415; 71045-TC-FY; 74019-TC-FY; 80053; 82550; 83880; 84443; 84484; 85025; 85610; 85730; 93005; 93010; 93306-TC; 99285-25

== ENCOUNTER 2019-01-17 13:05 | Observation (INO) | payer OTHER, BC ==
--- NOTE | 2019-01-17 14:42 | PDOC ---
History of Present Illness - General Chief Complaint: Weakness Stated Complaint: WEAKNESS Time Seen by Provider: 01/17/19 13:53 History Source: Patient Exam Limitations: No Limitations - History of Present Illness Initial Comments: 01/18/19 07:20 HPI: 73F PMH IDDM, ESRD on Peritoneal Dialysis MWF, prior [place] s/p CABG, AICD sent by Dr. Bhardwaj for increasing fatigue. Pt states she has felt fatigued for about a month but has worsened in past few days. Also endorsing feeling off balance for a few days. States she has had similar symptoms in the past that required transfusion. Endorses recent occasional itchy cough, no sick contacts. Denies lightheadedness, dizziness, headaches, changes to vision/hearing, numbness, tingling, weakness. Denies chest pain, palpitations, sob, N/V/D, abdominal pain , bloody stool, tarry stool. Endorses loss of appetite but will eat any food placed in front of her. Past History - Past Medical History Allergies/Adverse Reactions: Allergies Allergy/AdvReac Type Severity Reaction Status Date / Time No Known Drug Allergies Allergy Verified 01/17/19 13:13 Home Medications: Ambulatory Orders Ferric Citrate [Auryxia] 210 mg PO DAILY 07/29/17 Quetiapine Fumarate [Seroquel -] 25 mg PO HS 01/22/18 Aspirin [Adult Aspirin] 81 mg PO DAILY 03/17/18 Atorvastatin Ca [Lipitor] 80 mg PO DAILY 03/17/18 Carvedilol [Coreg -] 25 mg PO BID 03/17/18 Furosemide [Lasix -] 40 mg PO BID 03/17/18 Insulin (Novolog 70/30) [Novolog Mix 70/30 Vial] 28 ml SQ HS 03/17/18 Insulin (Novolog 70/30) [Novolog Mix 70/30 Vial] 38 ml SQ AM 03/17/18 Liraglutide [Victoza -] 1.8 mg SQ DAILY@0700 03/17/18 Losartan Potassium [Cozaar -] 50 mg PO DAILY 03/17/18 Multivit-Min/Iron/Folic/Lutein [Centrum Silver Women Tablet] 1 each PO DAILY Insulin (Novolog 70/30) [Novolog Mix 70/30 Vial -] 28 ml SQ HS 05/27/18 Vortioxetine Hydrobromide [Trintellix] 20 mg PO DAILY 05/27/18 Folic Acid/Vit B Complex and C [Dialyvite Tablet] 1 each PO DAILY 11/30/18 Vortioxetine Hydrobromide [Trintellix] 20 mg PO DAILY 01/17/19 Anemia: Yes Asthma: Yes Cardiac Disorders: Yes CVA: No COPD: No CHF: Yes (and pericardial effusion) Dementia: No Diabetes: Yes Dialysis: Yes (M-W-F) GI Disorders: Yes (ULCER,ESOPHAGITIS,HIATAL HERNIA) Disorders: Yes HTN: Yes Hypercholesterolemia: Yes Liver Disease: No Psychiatric Problems: Yes (depression) Thyroid Disease: No - Surgical History Abdominal Surgery: Yes (HERNIA) Cardiac Surgery: Yes (quadrupal bypass 06/11) Orthopedic Surgery: Yes (left ankle fracture 2 chronic mild left ankle edema, unchanged with current) - Psycho Social/Smoking Cessation Hx Smoking Status: No Smoking History: Never smoked Have you smoked in the past 12 months: No Number of Cigarettes Smoked Daily: 0 Hx Alcohol Use: No Drug/Substance Use Hx: No Substance Use Type: None Hx Substance Use Treatment: No Review of Systems - Review of Systems Able to Perform ROS?: Yes Comments:: 01/18/19 07:21 ROS: CONSTITUTIONAL: Endorses fatigue. Denies F / C HEENT: Denies headache, lightheadedness, dizziness, changes in vision / hearing , diplopia, blurry vision Denies sore throat, rhinorrhea. RESP: Endorses occasional itchy cough. Denies SOB CARD: Denies chest pain, palpitations GI: Denies N / V / D, abdominal pain, bloody stool, tarry stool, inability to tolerate PO : Denies dysuria, hematuria, frequency NEURO: Denies numbness, tingling, weakness MSK: Denies back pain Is the patient limited Yoruba proficient: No *Physical Exam - Vital Signs Last Vital Signs Temp Pulse Resp BP Pulse Ox 97.9 F 84 18 161/79 100 01/17/19 13:08 01/17/19 13:08 01/17/19 13:08 01/17/19 13:08 01/17/19 13:08 - Physical Exam Comments: 01/18/19 07:21 PE: GEN: Well appearing, NAD, comfortable. AAOx3 HEENT: NC/AT, CN II-XII intact, EOMI. ?conjunctival pallor? No facial asymmetry. Moist mucous membranes. Normal voice. Supple neck w/ FROM. CV: S1/S2, RRR, no m/r/g LUNG: CTAB, no wheezes, crackles, rales, rhonchi. GI: soft, ndnt, +BS, no guarding, no rebound. Peritoneal dialysis access in place. EXTREMITIES: No LE edema. No obvious deformities of all extremities. SKIN: warm, dry, normal turgor PSYCH: normal mood and affect NEURO: sensation symmetric. 5/5 UE and LE strength. Ambulates w/ normal gait. No FTN or heel-victor ataxia. Heart Score/ECG Review - History History: Slightly suspicious - Electrocardiogram EKG: Non specific repolarization disturbance - Age Age: >/= 65 - Risk Factors Risk Factors Heart Score: Yes Hx Hypertension, Yes Hx Diabetes, Yes Hx Obesity Based on the list above the patient has:: >/=3 risk factors or Hx atherosclerotic disease - Troponin Troponin: 1-3x normal limit - Score Heart Score - Total: 6 ED Treatment Course - LABORATORY CBC & Chemistry Diagram: 01/17/19 14:44 01/17/19 14:44 - RADIOLOGY Radiology Studies Ordered: Category Date Time Status CHEST X-RAY PORTABLE* [RAD] Stat Radiology 01/17/19 14:28 Ordered Medical Decision Making - Medical Decision Making 01/17/19 14:31 MDM: 73F presenting with worsening fatigue. No chest pain, sob, GI bleeds. Neurologically intact. eval for anemia, cardiac etiology, infectious etiology - cbc, cmp, cardiac, coags, T&S - EKG - CXR 01/17/19 16:16 labs reviewed H/H about baseline slight elevation in trop (0.11 vs baseline 0.9) f/u EKG then contact Dr. Bhardwaj 01/17/19 16:54 EKG 01/17/19 16:37 HR 85 NE 230 QRS 112 QTc 487 Sinus, 1st degree AV block, old T wave inversions compared to prior EKGs. Possible new V6 TWI ?present in EKG but poor baseline. HEART = 6 Admit tele obs // ADMITTED Discharge - Discharge Information Problems reviewed: Yes Clinical Impression/Diagnosis: Troponin level elevated Fatigue Qualifiers: Fatigue type: unspecified Qualified Code(s): R53.83 - Other fatigue Condition: Stable - Admission Yes - Follow up/Referral - Patient Discharge Instructions - Post Discharge Activity
[2019-01-17 15:07] LABS: BASO % 0.6 % (0-2.0); EOS % 3.6 % (0-4.5); HEMATOCRIT 31.3 % (32.4-45.2); HEMOGLOBIN 10.2 GM/dL (10.7-15.3); LYMPH % 21.6 % (8-40); MCH 28.3 pg (25.7-33.7); MCHC 32.6 g/dl (32.0-36.0); MEAN CELL VOLUME 86.7 fl (80-96); MEAN PLT VOLUME 11.8 fl (7.5-11.1); MONO % 5.1 % (3.8-10.2); NEUT % 69.1 % (42.8-82.8); PLATELET COUNT 123 K/MM3 (134-434); RBC 3.61 M/mm3 (3.60-5.2); RDW 13.4 % (11.6-15.6); WHITE BLOOD COUNT 7.7 K/mm3 (4.0-10.0)
[2019-01-17 15:19] LABS: INR 1.02 (0.83-1.09)
[2019-01-17 15:25] LABS: ALBUMIN 2.7 g/dl (3.4-5.0); BILIRUBIN,TOTAL 0.3 mg/dL (0.2-1); BLOOD UREA NITROGEN 40.9 mg/dL (7-18); CALCIUM 8.5 mg/dL (8.5-10.1); CREATININE 3.7 mg/dL (0.55-1.3); POTASSIUM 3.9 mmol/L (3.5-5.1)
--- NOTE | 2019-01-17 15:47 | PDOC ---
Attending Attestation - Resident Resident Name: Jossue Hopper - ED Attending Attestation I have performed the following: I have examined & evaluated the patient, The case was reviewed & discussed with the resident, I agree w/resident's findings & plan - HPI HPI: 01/17/19 15:45 73-year-old female with history of diabetes, renal failure on home peritoneal dialysis, anemia requiring transfusion in the past presents now sent in by Dr. Bhardwaj for evaluation of 1 month of progressive generalized weakness and fatigue worsened over the last week. No chest pain or syncope, no fevers or chills or night sweats or weight loss, normal oral intake, baseline glucose control. Patient has no specific complaints other than progressive weakness, denies any blood loss. Has had bone marrow biopsy in the past, takes iron supplements. - Physicial Exam PE: 01/17/19 15:46 Vital signs stable Well-appearing seated in stretcher speaking full sentences and joking with staff Pale skin, no jaundice Heart is regular, lungs are clear Abdomen distended but soft and nontender Neurologically intact, no edema - Medical Decision Making 01/17/19 15:46 73-year-old female with multiple medical problems including history of chronic anemia and peritoneal dialysis presents with progressive generalized weakness over 1 month, here for evaluation. Rule out acute symptomatic anemia, question electrolyte bnormality or uremia from renal failure, no known history of thyroid dysfunction. Check basic labs, urinalysis EKG Discuss disposition with PCP 01/17/19 16:08 hgb 10.2, baseline bun/cr, trop slightly elevated 0.11 which is also near baseline. will discuss with PCP Dr. Bhardwaj regarding plan. Heart Score/ECG Review #1 ECG reviewed & interpreted by me at: 16:37 General ECG Interpretation: Sinus Rhythm, Normal Rate (85), Normal Intervals ( qtc 487), No acute ischemic changes (TWI I/AVL, V6) Compared to previous ECG there are: No significant change (c/w 11/30/18, V6 baseline wavy, prior V6 upright)
--- NOTE | 2019-01-17 17:42 | PN ---
Teaching Attending Note Name of Resident: Elias Maldonado ATTENDING PHYSICIAN STATEMENT I saw and evaluated the patient. I reviewed the resident's note and discussed the case with the resident. I agree with the resident's findings and plan as documented. SUBJECTIVE: Complains of generalized weakness. No CP/palpitations/ lightheadedness/syncope/focal limb weakness/dizziness/nausea/vomiting/diarrhea/ dysuria/hematuria. No fevers/chills/cough/sputum/hemoptysis. OBJECTIVE: Afebrile, Hemodynamically Stable. Last Vital Signs Temp Pulse Resp BP Pulse Ox 97.9 F 84 18 161/79 100 01/17/19 13:08 01/17/19 13:08 01/17/19 13:08 01/17/19 13:08 01/17/19 13:08 HEENT - Atraumatic, Normocephalic. Heart - S1, S2, RRR. Midline sternotomy scar. s/p AICD Lungs - clear to auscultation Abdomen - soft, mild distension, PD catheter in situ - no erythema/tenderness associated with PD site. Extremities - No edema, no calf tenderness. Neuro - AAO x 3. Tone/Power normal all 4 extremities. Laboratory Results - last 24 hr 01/17/19 01/17/19 01/17/19 14:44 14:44 14:44 WBC 7.7 RBC 3.61 Hgb 10.2 L Hct 31.3 L MCV 86.7 MCH 28.3 MCHC 32.6 RDW 13.4 D Plt Count 123 L MPV 11.8 H Absolute Neuts (auto) 5.3 Neutrophils % 69.1 Lymphocytes % 21.6 Monocytes % 5.1 Eosinophils % 3.6 Basophils % 0.6 Nucleated RBC % 0 PT with INR INR PTT (Actin FS) Sodium 140 Potassium 3.9 Chloride 108 H Carbon Dioxide 27 Anion Gap 5 L BUN 40.9 H Creatinine 3.7 H Est GFR (CKD-EPI)AfAm 13.31 Est GFR (CKD-EPI)NonAf 11.48 Random Glucose 249 H Calcium 8.5 Total Bilirubin 0.3 AST 23 ALT 36 Alkaline Phosphatase 158 H Creatine Kinase 76 Troponin I 0.11 H Total Protein 6.0 L Albumin 2.7 L Blood Type Antibody Screen 01/17/19 01/17/19 14:44 14:44 WBC RBC Hgb Hct MCV MCH MCHC RDW Plt Count MPV Absolute Neuts (auto) Neutrophils % Lymphocytes % Monocytes % Eosinophils % Basophils % Nucleated RBC % PT with INR 12.00 INR 1.02 PTT (Actin FS) 32.0 Sodium Potassium Chloride Carbon Dioxide Anion Gap BUN Creatinine Est GFR (CKD-EPI)AfAm Est GFR (CKD-EPI)NonAf Random Glucose Calcium Total Bilirubin AST ALT Alkaline Phosphatase Creatine Kinase Troponin I Total Protein Albumin Blood Type AB POSITIVE Antibody Screen Negative Home Medications Medication Instructions Recorded Ferric Citrate [Auryxia] 210 mg PO DAILY 07/29/17 Quetiapine Fumarate [Seroquel -] 25 mg PO HS 01/22/18 Aspirin [Adult Aspirin] 81 mg PO DAILY 03/17/18 Atorvastatin Ca [Lipitor] 80 mg PO DAILY 03/17/18 Carvedilol [Coreg -] 25 mg PO BID 03/17/18 Furosemide [Lasix -] 40 mg PO BID 03/17/18 Insulin (Novolog 70/30) [Novolog 28 ml SQ HS 03/17/18 Mix 70/30 Vial] Insulin (Novolog 70/30) [Novolog 38 ml SQ AM 03/17/18 Mix 70/30 Vial] Liraglutide [Victoza -] 1.8 mg SQ DAILY@0700 03/17/18 Losartan Potassium [Cozaar -] 50 mg PO DAILY 03/17/18 Multivit-Min/Iron/Folic/Lutein 1 each PO DAILY 03/17/18 [Centrum Silver Women Tablet] Insulin (Novolog 70/30) [Novolog 28 ml SQ HS 05/27/18 Mix 70/30 Vial -] Vortioxetine Hydrobromide 20 mg PO DAILY 05/27/18 [Trintellix] Folic Acid/Vit B Complex and C 1 each PO DAILY 11/30/18 [Dialyvite Tablet] Vortioxetine Hydrobromide 20 mg PO DAILY 01/17/19 [Trintellix] ASSESSMENT AND PLAN: 73 year old female with HTN, HLD, Asthma, CAD s/p [place] s/p CABG s/p PCI/stents, Chronic Ischemic Cardiomyopathy s/p AICD, DM 2, ESRD on PD (MWF), Fatty Liver, Anxiety/Depression, Chronic LBP, referred by PCP for increasing lethargy. 1. Generalized weakness, etiology unclear, no focal neurological deficits ?sec to Uremia - will consult Nephrology Will send TSH and B12 levels. PT eval. 2. Elevated troponin -chronic sec to ESRD and cardiomyopathy Asymptomatic. no CP/SOB/palpitations Given CAD history - Teleobservation with serial troponin measurements. Continue Aspirin, Coreg, Losartan, Statin 3. Iron Deficiency Anemia - on Iron supplementation. Further Ix for ARTEMIO by PCP 4. DM 2 - resume home regimen Novolog 70/30 (with Novolog sliding scale coverage ). Hold Victoza. 5. Anxiety/Depression - continue Trintellix, Seroquel. 6. Chronic Systolic CHF/Ischemic Cardiomyopathy s/p AICD Recent Echo 11/30/18 - EF 51% Continue Lasix, BB, QUITA/I. 7. Thrombocytpopenia - chronic, ?sec to Fatty Liver. No bruising/bleeding. 8. Normocytic Anemia - etiology unclear - ARTEMIO +/- chronic disease versus ESRD. Will send Anemia work-up including Iron/Ferritin/B12/Folate levels. DVT Px - Heparin SQ
--- NOTE | 2019-01-17 19:20 | HP ---
CHIEF COMPLAINT: Generalized weakness PCP: Dr Bhardwaj HISTORY OF PRESENT ILLNESS: Pt is a 73 y/o F with a significant past medical history of IDDM, ESRD on Peritoneal Dialysis MWF, prior NC s/p CABG, AICD who presented to [facility] due to increasing generalized weakness. Pt endorses she underwent CABG in May of this year. Pt was in cardiac rehab shortly afterwards. Pt has been rather weak after the surgery but states her fatigue has progressed for the past 1 month, being most severe within the past 1 week. Endorses decreased PO intake as well. Denies any recent illness, chest pain, shortness of breath, LOC, abdominal pain , urinary frequency/dysuria, or any other symptoms PMH as above SurgHx- CABG, Hysterectomy, Hernia repair SocialHx- Denies Tobacco or alcohol use ER course was notable for: (1) Trop 0.11 Allergies No Known Drug Allergies Allergy (Verified 01/17/19 13:13) HOME MEDICATIONS: Home Medications Medication Instructions Recorded Ferric Citrate [Auryxia] 210 mg PO DAILY 07/29/17 Quetiapine Fumarate [Seroquel -] 25 mg PO HS 01/22/18 Aspirin [Adult Aspirin] 81 mg PO DAILY 03/17/18 Atorvastatin Ca [Lipitor] 80 mg PO DAILY 03/17/18 Carvedilol [Coreg -] 25 mg PO BID 03/17/18 Furosemide [Lasix -] 40 mg PO BID 03/17/18 Insulin (Novolog 70/30) [Novolog 28 ml SQ HS 03/17/18 Mix 70/30 Vial] Insulin (Novolog 70/30) [Novolog 38 ml SQ AM 03/17/18 Mix 70/30 Vial] Liraglutide [Victoza -] 1.8 mg SQ DAILY@0700 03/17/18 Losartan Potassium [Cozaar -] 50 mg PO DAILY 03/17/18 Multivit-Min/Iron/Folic/Lutein 1 each PO DAILY 03/17/18 [Centrum Silver Women Tablet] Insulin (Novolog 70/30) [Novolog 28 ml SQ HS 05/27/18 Mix 70/30 Vial -] Vortioxetine Hydrobromide 20 mg PO DAILY 05/27/18 [Trintellix] Folic Acid/Vit B Complex and C 1 each PO DAILY 11/30/18 [Dialyvite Tablet] Vortioxetine Hydrobromide 20 mg PO DAILY 01/17/19 [Trintellix] REVIEW OF SYSTEMS CONSTITUTIONAL: present generalized weakness HEENT: Absent: rhinorrhea, nasal congestion, throat pain, throat swelling, difficulty swallowing, mouth swelling, ear pain, eye pain, visual changes CARDIOVASCULAR: Absent: chest pain, syncope, palpitations, irregular heart rate, lightheadedness , peripheral edema RESPIRATORY: Absent: cough, shortness of breath, dyspnea with exertion, orthopnea, wheezing, stridor, hemoptysis GASTROINTESTINAL: Absent: abdominal pain, abdominal distension, nausea, vomiting, diarrhea, constipation, melena, hematochezia GENITOURINARY: Absent: dysuria, frequency, urgency, hesitancy, hematuria, flank pain, genital pain MUSCULOSKELETAL: Absent: myalgia, arthralgia, joint swelling, back pain, neck pain SKIN: Absent: rash, itching, pallor HEMATOLOGIC/IMMUNOLOGIC: Absent: easy bleeding, easy bruising, lymphadenopathy, frequent infections ENDOCRINE: Absent: unexplained weight gain, unexplained weight loss, heat intolerance, cold intolerance NEUROLOGIC: Absent: headache, focal weakness or paresthesias, dizziness, unsteady gait, seizure, mental status changes, bladder or bowel incontinence PSYCHIATRIC: Absent: anxiety, depression, suicidal or homicidal ideation, hallucinations. PHYSICAL EXAMINATION Vital Signs - 24 hr 01/17/19 13:08 Temperature 97.9 F Pulse Rate 84 Respiratory 18 Rate Blood Pressure 161/79 O2 Sat by Pulse 100 Oximetry (%) GENERAL: NAD AAOx3 HEAD: Normal with no signs of trauma. EYES: EOMI Sclera Clear EARS, NOSE, THROAT: MMM NECK: Supple LUNGS: CTA b/l HEART: Sternotomy scar. RRR S1S2 ABDOMEN: PD Cath on place. No erythema or signs of infections around site. LOWER EXTREMITIES: No CCE NEUROLOGICAL: Cranial nerves II-XII intact. Normal speech. PSYCHIATRIC: Cooperative. Good eye contact. Appropriate mood and affect. SKIN: Warm, dry, normal turgor, no rashes or lesions noted, normal capillary refill. Laboratory Results - last 24 hr 01/17/19 01/17/19 01/17/19 14:44 14:44 14:44 WBC 7.7 RBC 3.61 Hgb 10.2 L Hct 31.3 L MCV 86.7 MCH 28.3 MCHC 32.6 RDW 13.4 D Plt Count 123 L MPV 11.8 H Absolute Neuts (auto) 5.3 Neutrophils % 69.1 Lymphocytes % 21.6 Monocytes % 5.1 Eosinophils % 3.6 Basophils % 0.6 Nucleated RBC % 0 PT with INR INR PTT (Actin FS) Sodium 140 Potassium 3.9 Chloride 108 H Carbon Dioxide 27 Anion Gap 5 L BUN 40.9 H Creatinine 3.7 H Est GFR (CKD-EPI)AfAm 13.31 Est GFR (CKD-EPI)NonAf 11.48 Random Glucose 249 H Calcium 8.5 Total Bilirubin 0.3 AST 23 ALT 36 Alkaline Phosphatase 158 H Creatine Kinase 76 Troponin I 0.11 H Total Protein 6.0 L Albumin 2.7 L Vitamin B12 578 TSH 1.66 Blood Type Antibody Screen 01/17/19 01/17/19 14:44 14:44 WBC RBC Hgb Hct MCV MCH MCHC RDW Plt Count MPV Absolute Neuts (auto) Neutrophils % Lymphocytes % Monocytes % Eosinophils % Basophils % Nucleated RBC % PT with INR 12.00 INR 1.02 PTT (Actin FS) 32.0 Sodium Potassium Chloride Carbon Dioxide Anion Gap BUN Creatinine Est GFR (CKD-EPI)AfAm Est GFR (CKD-EPI)NonAf Random Glucose Calcium Total Bilirubin AST ALT Alkaline Phosphatase Creatine Kinase Troponin I Total Protein Albumin Vitamin B12 TSH Blood Type AB POSITIVE Antibody Screen Negative ASSESSMENT/PLAN: Pt is a 73 y/o F with a significant past medical history of IDDM, ESRD on Peritoneal Dialysis MWF, prior NC s/p CABG, AICD who presented to [facility] due to increasing generalized weakness. #Generalized Weakness 2/2 unclear etiology -TSH and B12 levels -Will order Iron Studies to assess etiology of anemia. TIBC, Iron, Ferritin -UA to assess for UTI -Repeat CBC CMP in am -Pt evaluation #Tropenemia -trop 0.11. May be 2/2 chronic renal disease -Repeat Trop -Tele obs -Continue Aspirin, Coreg, Losartan, Statin # DM 2 -resume home regimen Novolog 70/30. Will place on 20 Units HS, 30 U AM # Anxiety/Depression - continue Trintellix, Seroquel. #HFrEF -Recent Echo 11/30/18 - EF 51% -Continue Lasix, BB, QUITA/I. #DVT ppx: -HEP SQ TID #FEN -No standing fluids -monitor Electrolytes -Renal Diet #Dispo; -Tele Obs Visit type - Emergency Visit Emergency Visit: Yes ED Registration Date: 01/17/19 Care time: The patient presented to the Emergency Department on the above date and was hospitalized for further evaluation of their emergent condition. - New Patient This patient is new to me today: Yes Date on this admission: 01/17/19 - Critical Care Critical Care patient: No ATTENDING PHYSICIAN STATEMENT I saw and evaluated the patient. I reviewed the resident's note and discussed the case with the resident. I agree with the resident's findings and plan as documented. SUBJECTIVE: OBJECTIVE: ASSESSMENT AND PLAN:
[2019-01-17] MEDS ORDERED: QUEtiapine FUMARATE 25 MG TABLET (FP) PO SCH (22:00)
[2019-01-17] MEDS ORDERED: INSULIN (NOVOLOG MIX 70/30) 100 UNITS/ML MDV SQ SCH ×2 (22:00)
[2019-01-17] MEDS ORDERED: CARVEDILOL 12.5 MG TABLET (FP) ONE (22:06)
[2019-01-17] MEDS ORDERED: QUEtiapine FUMARATE 25 MG TABLET (FP) ONE (22:06)
[2019-01-17] MEDS: CARVEDILOL 25 MG TABLET (FP) PO SCH (22:12)
[2019-01-18 03:03] VITALS: BMI 28.8
[2019-01-18] MEDS: INSULIN (NOVOLOG MIX 70/30) 100 UNITS/ML MDV SQ SCH ×2 (06:43→09:36)
[2019-01-18] MEDS ORDERED: INSULIN (NOVOLOG MIX 70/30) 100 UNITS/ML MDV SQ SCH (07:00)
[2019-01-18 07:24] LABS: BASO % 0.6 % (0-2.0); HEMATOCRIT 28.5 % (32.4-45.2); HEMOGLOBIN 9.5 GM/dL (10.7-15.3); LYMPH % 29.7 % (8-40); MCH 28.7 pg (25.7-33.7); MCHC 33.5 g/dl (32.0-36.0); MEAN CELL VOLUME 85.8 fl (80-96); MEAN PLT VOLUME 11.8 fl (7.5-11.1); MONO % 6.5 % (3.8-10.2); NEUT % 58.2 % (42.8-82.8); PLATELET COUNT 111 K/MM3 (134-434); RBC 3.32 M/mm3 (3.60-5.2); RDW 13.2 % (11.6-15.6); WHITE BLOOD COUNT 7.7 K/mm3 (4.0-10.0)
[2019-01-18 07:32] LABS: INR 1.06 (0.83-1.09); PROTHROMBIN TIME (PATIENT) 12.5 SEC (9.7-13.0)
[2019-01-18 07:35] LABS: ACTIVATED PTT 32.2 SECONDS (25.2-36.5)
[2019-01-18 07:49] LABS: ALBUMIN 2.4 g/dl (3.4-5.0); BILIRUBIN,TOTAL 0.2 mg/dL (0.2-1); BLOOD UREA NITROGEN 44.2 mg/dL (7-18); CREATININE 3.6 mg/dL (0.55-1.3); MAGNESIUM 1.7 mg/dL (1.8-2.4); PHOSPHOROUS 4.1 mg/dL (2.5-4.9); POTASSIUM 3.8 mmol/L (3.5-5.1); TOT PROT 5.3 g/dl (6.4-8.2)
[2019-01-18] MEDS ORDERED: PT OWN MED DRAWER 7, Y5N ONE (08:30)
[2019-01-18] MEDS ORDERED: MAGNESIUM OXIDE 400 MG TABLET (FP) PO ONE (09:09)
--- NOTE | 2019-01-18 09:12 | DS ---
Physical Examination Vital Signs: Vital Signs Temperature 98.4 F 01/18/19 02:45 Pulse Rate 83 01/18/19 06:00 Respiratory Rate 20 01/18/19 06:00 Blood Pressure 171/76 H 01/18/19 06:00 O2 Sat by Pulse Oximetry (%) 98 01/18/19 02:45 Cardiovascular: Yes: S1, S2 Respiratory: Yes: Regular, CTA Bilaterally Gastrointestinal: Yes: Normal Bowel Sounds, Soft. No: Tenderness Edema: No Neurological: Yes: Alert, Oriented Labs: CBC, BMP 01/18/19 06:05 01/18/19 06:05 Discharge Summary Problems reviewed: Yes Reason For Visit: ELEVATED TROPONIN LEVEL Current Active Problems Elevated troponin (Acute) Fatigue (Acute) Hospital Course: 73-year-old female with history of diabetes, renal failure on home peritoneal dialysis, anemia requiring transfusion in the past presents now sent in by Dr. Aguirre for evaluation of 1 month of progressive generalized weakness and fatigue worsened over the last week. No chest pain or syncope, no fevers or chills or night sweats or weight loss, normal oral intake, baseline glucose control. Patient has no specific complaints other than progressive weakness, denies any blood loss. This am states feels better back to her baseline #Generalized Weakness 2/2 unclear etiology Improved labs stable #Tropenin elevated -trop 0.11. May be 2/2 chronic renal disease -Repeat Trop no change -Tele obs -Continue Aspirin, Coreg, Losartan, Statin # DM 2 -resume home regimen Novolog 70/30. Will place on 20 Units HS, 30 U AM # Anxiety/Depression - continue Trintellix, Seroquel. #HFrEF -Recent Echo 11/30/18 - EF 51% -Continue Lasix, BB, QUITA/I. -cxr noted--pt with peritoneal dialysis #HTn add norvasc 5 mg daily monitor Condition: Stable - Instructions Diet, Activity, Other Instructions: Follow up with dr aguirre on thursday monitor bp closely if Any recurrence of your symptoms fevers cp or abdominal pain return to the ER Referrals: Adeel Aguirre MD [Primary Care Provider] - 1 Week Disposition: HOME - Home Medications Comprehensive Discharge Medication List: Ambulatory Orders Ferric Citrate [Auryxia] 210 mg PO DAILY 07/29/17 Quetiapine Fumarate [Seroquel -] 25 mg PO HS 01/22/18 Aspirin [Adult Aspirin] 81 mg PO DAILY 03/17/18 Atorvastatin Ca [Lipitor] 80 mg PO DAILY 03/17/18 Carvedilol [Coreg -] 25 mg PO BID 03/17/18 Insulin (Novolog 70/30) [Novolog Mix 70/30 Vial -] 28 ml SQ HS 03/17/18 Insulin (Novolog 70/30) [Novolog Mix 70/30 Vial -] 38 ml SQ AM 03/17/18 Losartan Potassium [Cozaar -] 50 mg PO DAILY 03/17/18 Multivit-Min/Iron/Folic/Lutein [Centrum Silver Women Tablet] 1 each PO DAILY Folic Acid/Vit B Complex and C [Dialyvite Tablet] 1 each PO DAILY 11/30/18 Vortioxetine Hydrobromide [Trintellix] 20 mg PO DAILY 01/17/19 Amlodipine Besylate [Norvasc -] 5 mg PO DAILY #30 tablet 01/18/19
[2019-01-18] MEDS: HEPARIN NA (PORCINE) 5,000 UNITS/ML 1ML VIAL SQ SCH ×2 (09:35→13:57)
[2019-01-18] MEDS: CARVEDILOL 25 MG TABLET (FP) PO SCH (09:35)
[2019-01-18] MEDS ORDERED: ASPIRIN COATED 81 MG TABLET.EC PO SCH (10:00)
[2019-01-18] MEDS ORDERED: amLODIPine BESYLATE 5 MG TABLET (FP) PO SCH (10:00)
[2019-01-18] MEDS ORDERED: LOSARTAN POTASSIUM 50 MG TABLET (FP) PO SCH (10:00)
[2019-01-18] MEDS ORDERED: VITAMIN B COMPLEX W/C COMBO TABLET (FP) PO SCH (10:00)
[2019-01-18] MEDS ORDERED: PATIENT'S OWN MEDICATION (NON-FORMULARY) (Vortioxetine Hydrobromide [Trintellix] 20 MG) PO SCH (10:00)
--- NOTE | 2019-01-18 10:34 | EKG ---
Test Reason : Blood Pressure : / mmHG Vent. Rate : 085 BPM Atrial Rate : 085 BPM P-R Int : 230 ms QRS Dur : 112 ms QT Int : 410 ms P-R-T Axes : 063 018 138 degrees QTc Int : 487 ms SINUS RHYTHM WITH 1ST DEGREE A-V BLOCK POSSIBLE LEFT ATRIAL ENLARGEMENT PROLONGED QT ABNORMAL ECG WHEN COMPARED WITH ECG OF 30-NOV-2018 10:15, NO SIGNIFICANT CHANGE WAS FOUND Confirmed by Venkata Alvarez MD ([id number]) on 01/18/2019 10:34:25 AM Referred By: Confirmed By:Venkata Alvarez MD
--- NOTE | 2019-01-18 11:26 | CON.CARD ---
Consult Consult Specialty:: Cardiology Reason for Consultation:: waekness - History of Present Illness History of Present Illness: 73-year-old female with history of diabetes, renal failure on home peritoneal dialysis, anemia requiring transfusion in the past presents now sent in by Dr. Bhardwaj for evaluation of 1 month of progressive generalized weakness and fatigue worsened over the last week. No chest pain or syncope, no fevers or chills or night sweats or weight loss, normal oral intake, baseline glucose control. Patient has no specific complaints other than progressive weakness, denies any blood loss. PMH NH-->s/p coronary artery stents x 4 (06/01: mid Cx; prox and mid RCA; Maurisio of mid and distal LAD; 05/02: patent stents); 4th NH was July, at [facility] (Dr. Buck Donnelly) s/p VVI/ICD ([facility]; 04/2009) Ongoing medical problems s/p NH x 4 (1979; 2008; 2009; 2010) S/p NH 2008-->multiple coronary stents ESRD Anemia angina Anxiety, chronic Cardiomyopathy, ischemic: poor LVEF post-MIs; improved to mild LV dysfunction on 2010 EKG and low-normal LVEF 2016. Depression; "post-traumatic stress disorder" from past marriage Diabetes mellitus, type II Hypercholesterolemia Hypertension obesity (significant weight gain in 2011) S/P ICD/VVI PPM ( for LVEF35%; inducible NSVT); [facility], 04/2009 s/p Lt foot Fx x 2; s/p torn Lt achilles tendon - History Source History Provided By: Patient, Medical Record - Past Medical History CATH LAB RADIOLOGICAL TECHNOLOGIST: Yes: Syncope. No: Alzheimer's Cardio/Vascular: Yes: CAD, CHF, HTN, NH, Hyperlipdemia, Other Pulmonary: Yes: Asthma Gastrointestinal: Yes: Hiatal Hernia Hepatobiliary: Yes: Other (fatty liver) Renal/: Yes: Renal Inusuff Psych: Yes: Anxiety, Depression Musculoskeletal: Yes: Chronic low back pain Endocrine: Yes: Diabetes Mellitus - Past Surgical History Past Surgical History: Yes: Cataract Removal, Hysterectomy, Hernia Repair, Stent , AICD, Colonoscopy, Breast Biopsy - Alcohol/Substance Use Hx Alcohol Use: No History of Substance Use: reports: None - Smoking History Smoking history: Never smoked Have you smoked in the past 12 months: No Aproximately how many cigarettes per day: 0 - Social History Usual Living Arrangement: Alone ADL: Independent Occupation: retired teacher History of Recent Travel: No Home Medications - Allergies Allergies/Adverse Reactions: Allergies Allergy/AdvReac Type Severity Reaction Status Date / Time No Known Drug Allergies Allergy Verified 01/17/19 13:13 - Home Medications Home Medications: Ambulatory Orders Ferric Citrate [Auryxia] 210 mg PO DAILY 07/29/17 Quetiapine Fumarate [Seroquel -] 25 mg PO HS 01/22/18 Aspirin [Adult Aspirin] 81 mg PO DAILY 03/17/18 Atorvastatin Ca [Lipitor] 80 mg PO DAILY 03/17/18 Carvedilol [Coreg -] 25 mg PO BID 03/17/18 Insulin (Novolog 70/30) [Novolog Mix 70/30 Vial -] 28 ml SQ HS 03/17/18 Insulin (Novolog 70/30) [Novolog Mix 70/30 Vial -] 38 ml SQ AM 03/17/18 Losartan Potassium [Cozaar -] 50 mg PO DAILY 03/17/18 Multivit-Min/Iron/Folic/Lutein [Centrum Silver Women Tablet] 1 each PO DAILY Folic Acid/Vit B Complex and C [Dialyvite Tablet] 1 each PO DAILY 11/30/18 Vortioxetine Hydrobromide [Trintellix] 20 mg PO DAILY 01/17/19 Amlodipine Besylate [Norvasc -] 5 mg PO DAILY #30 tablet 01/18/19 Review of Systems - Review of Systems Constitutional: reports: Weakness Eyes: reports: No Symptoms HENT: reports: No Symptoms Neck: reports: No Symptoms Cardiovascular: reports: No Symptoms Respiratory: reports: No Symptoms Gastrointestinal: reports: No Symptoms Genitourinary: reports: No Symptoms Breasts: reports: No Symptoms Reported Musculoskeletal: reports: No Symptoms Integumentary: reports: No Symptoms Neurological: reports: No Symptoms Endocrine: reports: No Symptoms Hematology/Lymphatic: reports: No Symptoms Psychiatric: reports: No Symptoms Vital Signs: Vital Signs Temperature 98 F 01/18/19 09:48 Pulse Rate 88 01/18/19 09:48 Respiratory Rate 20 01/18/19 09:48 Blood Pressure 183/84 H 01/18/19 09:48 O2 Sat by Pulse Oximetry (%) 100 01/18/19 09:00 Constitutional: Yes: Well Nourished, No Distress, Calm Eyes: Yes: WNL, Conjunctiva Clear, EOM Intact HENT: Yes: WNL, Atraumatic, Normocephalic Neck: Yes: WNL, Supple, Trachea Midline Respiratory: Yes: WNL, Regular, CTA Bilaterally Gastrointestinal: Yes: WNL, Normal Bowel Sounds Renal/: Yes: WNL Cardiovascular: Yes: WNL, Regular Rate and Rhythm Heart Sounds: Yes: S1, S2 Musculoskeletal: Yes: WNL Extremities: Yes: WNL Integumentary: Yes: WNL Neurological: Yes: WNL, Alert, Oriented ...Motor Strength: WNL Psychiatric: Yes: WNL, Alert, Oriented - Other Data Labs, Other Data: CBC, BMP 01/18/19 06:05 01/18/19 06:05 INR, PTT INR 1.06 (0.83-1.09) 01/18/19 06:05 Troponin, BNP 01/17/19 01/17/19 01/18/19 14:44 20:35 09:10 Troponin I 0.11 H 0.10 H 0.10 H Troponin, BNP 01/17/19 01/17/19 01/18/19 14:44 20:35 09:10 Troponin I 0.11 H 0.10 H 0.10 H Imaging - Results Chest X-ray: Image Reviewed (? pneumoperitoneum RUQ) EKG: Image Reviewed (sr 1 degree AVB) Problem List - Problems (1) Elevated troponin Code(s): R79.89 - OTHER SPECIFIED ABNORMAL FINDINGS OF BLOOD CHEMISTRY (2) Fatigue Code(s): R53.83 - OTHER FATIGUE Qualifiers: Fatigue type: unspecified Qualified Code(s): R53.83 - Other fatigue (3) Abdominal pain Code(s): R10.9 - UNSPECIFIED ABDOMINAL PAIN Qualifiers: Abdominal location: left lower quadrant Qualified Code(s): R10.32 - Left lower quadrant pain (4) Acute on chronic diastolic CHF (congestive heart failure) Code(s): I50.33 - ACUTE ON CHRONIC DIASTOLIC (CONGESTIVE) HEART FAILURE (5) Acute renal failure Code(s): N17.9 - ACUTE KIDNEY FAILURE, UNSPECIFIED Qualifiers: Acute renal failure type: unspecified Qualified Code(s): N17.9 - Acute kidney failure, unspecified (6) Anemia Code(s): D64.9 - ANEMIA, UNSPECIFIED (7) Anxiety and depression Code(s): F41.9 - ANXIETY DISORDER, UNSPECIFIED; F32.9 - MAJOR DEPRESSIVE DISORDER, SINGLE EPISODE, UNSPECIFIED (8) Asthma Code(s): J45.909 - UNSPECIFIED ASTHMA, UNCOMPLICATED (9) Atypical chest pain Code(s): R07.89 - OTHER CHEST PAIN (10) CAD (coronary artery disease) Code(s): I25.10 - ATHSCL HEART DISEASE OF [place] CORONARY ARTERY W/O ANG PCTRS Qualifiers: Coronary Disease-Associated Artery/Lesion type: unspecified vessel or lesion type (11) CHF (congestive heart failure) Code(s): I50.9 - HEART FAILURE, UNSPECIFIED (12) CHI (closed head injury) Code(s): S09.90XA - UNSPECIFIED INJURY OF HEAD, INITIAL ENCOUNTER (13) COPD (chronic obstructive pulmonary disease) Code(s): J44.9 - CHRONIC OBSTRUCTIVE PULMONARY DISEASE, UNSPECIFIED (14) Cardiac defibrillator in place Code(s): Z95.810 - PRESENCE OF AUTOMATIC (IMPLANTABLE) CARDIAC DEFIBRILLATOR (15) Cervical strain Code(s): S16.1XXA - STRAIN OF MUSCLE, FASCIA AND TENDON AT NECK LEVEL, INIT (16) Chest pain Code(s): R07.9 - CHEST PAIN, UNSPECIFIED Qualifiers: Ischemic chest pain type: unspecified angina pectoris type (17) Chest pain at rest Code(s): R07.9 - CHEST PAIN, UNSPECIFIED (18) Chronic combined systolic and diastolic CHF (congestive heart failure) Code(s): I50.42 - CHRONIC COMBINED SYSTOLIC AND DIASTOLIC HRT FAIL (19) Chronic kidney disease (CKD) Code(s): N18.9 - CHRONIC KIDNEY DISEASE, UNSPECIFIED (20) Cough Code(s): R05 - COUGH (21) Depression Code(s): F32.9 - MAJOR DEPRESSIVE DISORDER, SINGLE EPISODE, UNSPECIFIED (22) Diabetes Code(s): E11.9 - TYPE 2 DIABETES MELLITUS WITHOUT COMPLICATIONS Qualifiers: Diabetes mellitus type: type 2 Diabetes mellitus terminal make up operator insulin use: unspecified fdc insulin use status Diabetes mellitus complication status : with kidney complications Diabetes mellitus complication detail: with chronic kidney disease Chronic kidney disease stage: unspecified stage Qualified Code(s): E11.22 - Type 2 diabetes mellitus with diabetic chronic kidney disease (23) Dizziness Code(s): R42 - DIZZINESS AND GIDDINESS (24) ESRD (end stage renal disease) Code(s): N18.6 - END STAGE RENAL DISEASE (25) ESRD on peritoneal dialysis Code(s): N18.6 - END STAGE RENAL DISEASE; Z99.2 - DEPENDENCE ON RENAL DIALYSIS (26) Elevated brain natriuretic peptide (BNP) level Code(s): R79.89 - OTHER SPECIFIED ABNORMAL FINDINGS OF BLOOD CHEMISTRY (27) Fever Code(s): R50.9 - FEVER, UNSPECIFIED (28) HTN (hypertension) Code(s): I10 - ESSENTIAL (PRIMARY) HYPERTENSION (29) Hip pain, left Code(s): M25.552 - PAIN IN LEFT HIP (30) Hypertriglyceridemia Code(s): E78.1 - PURE HYPERGLYCERIDEMIA (31) Hypotension Code(s): I95.9 - HYPOTENSION, UNSPECIFIED (32) Incisional hernia without mention of obstruction or gangrene Code(s): K43.2 - INCISIONAL HERNIA WITHOUT OBSTRUCTION OR GANGRENE Qualifiers: Obstruction and gangrene presence: without obstruction or gangrene Qualified Code(s): K43.2 - Incisional hernia without obstruction or gangrene (33) Insomnia Code(s): G47.00 - INSOMNIA, UNSPECIFIED (34) Jaw pain Code(s): R68.84 - JAW PAIN (35) Lightheadedness Code(s): R42 - DIZZINESS AND GIDDINESS (36) Medication side effect Code(s): T88.7XXA - UNSP ADVERSE EFFECT OF DRUG OR MEDICAMENT, INIT ENCNTR (37) Morbid obesity due to excess calories Code(s): E66.01 - MORBID (SEVERE) OBESITY DUE TO EXCESS CALORIES (38) Near syncope Code(s): R55 - SYNCOPE AND COLLAPSE (39) Obesity Code(s): E66.9 - OBESITY, UNSPECIFIED Qualifiers: Obesity type: due to excess calories (40) Overweight Code(s): E66.3 - OVERWEIGHT (41) Pneumoperitoneum Code(s): K66.8 - OTHER SPECIFIED DISORDERS OF PERITONEUM (42) Renal insufficiency Code(s): N28.9 - DISORDER OF KIDNEY AND URETER, UNSPECIFIED (43) S/P CABG (coronary artery bypass graft) Code(s): Z95.1 - PRESENCE OF AORTOCORONARY BYPASS GRAFT (44) Shortness of breath Code(s): R06.02 - SHORTNESS OF BREATH (45) Sleep apnea Code(s): G47.30 - SLEEP APNEA, UNSPECIFIED (46) Sputum production Code(s): R05 - COUGH (47) Status post myocardial infarction Code(s): I25.2 - OLD MYOCARDIAL INFARCTION (48) Stented coronary artery Code(s): Z95.5 - PRESENCE OF CORONARY ANGIOPLASTY IMPLANT AND GRAFT (49) Syncope Code(s): R55 - SYNCOPE AND COLLAPSE Qualifiers: Syncope type: unspecified Qualified Code(s): R55 - Syncope and collapse (50) Transient hypotension Code(s): I95.9 - HYPOTENSION, UNSPECIFIED (51) Type 2 diabetes mellitus with hyperosmolarity without nonketotic hyperglycemic-hyperosmolar coma (nkhhc) Code(s): E11.00 - TYPE 2 DIAB W HYPROSM W/O NONKET HYPRGLY-HYPROS COMA ([facility]) (52) UTI (urinary tract infection) Code(s): N39.0 - URINARY TRACT INFECTION, SITE NOT SPECIFIED Qualifiers: Urinary tract infection type: acute cystitis Hematuria presence: with hematuria Qualified Code(s): N30.01 - Acute cystitis with hematuria (53) Ventral hernia Code(s): K43.9 - VENTRAL HERNIA WITHOUT OBSTRUCTION OR GANGRENE Qualifiers: Obstruction and gangrene presence: without obstruction or gangrene Qualified Code(s): K43.9 - Ventral hernia without obstruction or gangrene (54) Weakness Code(s): R53.1 - WEAKNESS Assessment/Plan Weakness r/o peritonitis borderline TNIs - stable uncontroled HTN NH-->s/p coronary artery stents x 4 (06/01: mid Cx; prox and mid RCA; Maurisio of mid and distal LAD; 05/02: patent stents); [facility] NH was [facility] (Dr. Buck Donnelly) s/p VVI/ICD ([facility]; 04/2009) Ongoing medical problems s/p NH x 4 (1979; 2008; 2009; 2010) S/p NH 2008-->multiple coronary stents ESRD Anemia angina Anxiety, chronic Cardiomyopathy, ischemic: poor LVEF post-MIs; improved to mild LV dysfunction on 2010 EKG and low-normal LVEF 2017. Depression; "post-traumatic stress disorder" from past marriage Diabetes mellitus, type II Hypercholesterolemia Hypertension obesity (significant weight gain in 2011) S/P ICD/VVI PPM ( for LVEF35%; inducible NSVT); [facility], 04/2009 s/p Lt foot Fx x 2; s/p torn Lt achilles tendon Plan ID consult cont telemetry cardiac hinojosa mita f/iu TNIs
[2019-01-18 13:57] VITALS: BP 154/98; PULSE 91; TEMP 99.1
--- NOTE | 2019-01-18 14:45 | CONSULT ---
Consult Consult Specialty:: Nephrology Reason for Consultation:: ESRD - History of Present Illness Chief Complaint: generalized weakness History of Present Illness: Pt is a 73 year old female with pmhx of esrd on PD on MWF, DM, CAD, and CABG who presents with weakness. I was called to evaluate her as she is on PD. She follows with Dr Hopkins. I called and discussed her care with Dr Hopkins. Pt says that she has not been sleeping and is awake for 22 hours a day. She denies fevers or chills. She says she feels better and wants to go home. She does PD three times per week. She also has not been eating much. - History Source History Provided By: Patient, Medical Record - Past Medical History REPORT CHECKER: Yes: Syncope. No: Alzheimer's Cardio/Vascular: Yes: CAD, CHF, HTN, NE, Hyperlipdemia, Other Pulmonary: Yes: Asthma Gastrointestinal: Yes: Hiatal Hernia Hepatobiliary: Yes: Other (fatty liver) Renal/: Yes: Renal Inusuff Psych: Yes: Anxiety, Depression Musculoskeletal: Yes: Chronic low back pain Endocrine: Yes: Diabetes Mellitus - Past Surgical History Past Surgical History: Yes: Cataract Removal, Hysterectomy, Hernia Repair, Stent , AICD, Colonoscopy, Breast Biopsy - Alcohol/Substance Use Hx Alcohol Use: No History of Substance Use: reports: None - Smoking History Smoking history: Never smoked Have you smoked in the past 12 months: No Aproximately how many cigarettes per day: 0 - Social History Usual Living Arrangement: Alone ADL: Independent Occupation: retired teacher History of Recent Travel: No Home Medications - Allergies Allergies/Adverse Reactions: Allergies Allergy/AdvReac Type Severity Reaction Status Date / Time No Known Drug Allergies Allergy Verified 01/17/19 13:13 - Home Medications Home Medications: Ambulatory Orders Ferric Citrate [Auryxia] 210 mg PO DAILY 07/29/17 Quetiapine Fumarate [Seroquel -] 25 mg PO HS 01/22/18 Aspirin [Adult Aspirin] 81 mg PO DAILY 03/17/18 Atorvastatin Ca [Lipitor] 80 mg PO DAILY 03/17/18 Carvedilol [Coreg -] 25 mg PO BID 03/17/18 Insulin (Novolog 70/30) [Novolog Mix 70/30 Vial -] 28 ml SQ HS 03/17/18 Insulin (Novolog 70/30) [Novolog Mix 70/30 Vial -] 38 ml SQ AM 03/17/18 Losartan Potassium [Cozaar -] 50 mg PO DAILY 03/17/18 Multivit-Min/Iron/Folic/Lutein [Centrum Silver Women Tablet] 1 each PO DAILY Folic Acid/Vit B Complex and C [Dialyvite Tablet] 1 each PO DAILY 11/30/18 Vortioxetine Hydrobromide [Trintellix] 20 mg PO DAILY 01/17/19 Amlodipine Besylate [Norvasc -] 5 mg PO DAILY #30 tablet 01/18/19 Family Medical History Family History: Denies Review of Systems - Review of Systems Constitutional: reports: Malaise Eyes: reports: No Symptoms HENT: reports: No Symptoms Neck: reports: No Symptoms Cardiovascular: reports: No Symptoms Respiratory: reports: No Symptoms Gastrointestinal: reports: No Symptoms Genitourinary: reports: No Symptoms Musculoskeletal: reports: No Symptoms Integumentary: reports: No Symptoms Neurological: reports: No Symptoms Endocrine: reports: No Symptoms Hematology/Lymphatic: reports: No Symptoms Psychiatric: reports: No Symptoms Physical Exam Vital Signs: Vital Signs Temperature 99.1 F 01/18/19 13:56 Pulse Rate 91 H 01/18/19 13:56 Respiratory Rate 20 01/18/19 13:56 Blood Pressure 154/98 01/18/19 13:56 O2 Sat by Pulse Oximetry (%) 100 01/18/19 09:00 Constitutional: Yes: Calm Eyes: Yes: Conjunctiva Clear HENT: Yes: Atraumatic Neck: Yes: Supple Cardiovascular: Yes: S1, S2 Respiratory: Yes: CTA Bilaterally Gastrointestinal: Yes: Normal Bowel Sounds, Soft, Other (pd site clean and non tender) Renal/: Yes: WNL Musculoskeletal: Yes: WNL Edema: No Neurological: Yes: Oriented Psychiatric: Yes: Oriented Labs: CBC, BMP 01/18/19 06:05 01/18/19 06:05 Imaging - Results Chest X-ray: Report Reviewed Problem List - Problems (1) ESRD on peritoneal dialysis Code(s): N18.6 - END STAGE RENAL DISEASE; Z99.2 - DEPENDENCE ON RENAL DIALYSIS Assessment/Plan Current Medications Generic Name Dose Route Start Last Admin Trade Name Freq PRN Reason Stop Dose Admin Amlodipine Besylate 5 mg 01/18/19 10:00 01/18/19 11:13 Norvasc - PO 5 mg DAILY JOS Administration Aspirin 81 mg 01/18/19 10:00 01/18/19 09:35 Ecotrin - PO 81 mg DAILY JOS Administration Atorvastatin Calcium 80 mg 01/18/19 22:00 Lipitor - PO HS JOS Carvedilol 25 mg 01/17/19 22:00 01/18/19 09:35 Coreg - PO 25 mg BID JOS Administration Heparin Sodium (Porcine) 5,000 unit 01/18/19 10:00 01/18/19 13:57 Heparin - SQ Not Given TID JOS Insulin Aspart 20 units 01/17/19 22:00 01/17/19 22:12 Novolog Mix 70/30 Vial SQ 20 unit HS JOS Administration Insulin Aspart 30 units 01/18/19 07:00 01/18/19 09:36 Novolog Mix 70/30 Vial SQ 30 units AM JOS Administration Losartan Potassium 50 mg 01/18/19 10:00 01/18/19 09:35 Cozaar - PO 50 mg DAILY JOS Administration Multivitamins 1 each 01/18/19 10:00 01/18/19 09:35 Total B With C - PO 1 each DAILY JOS Administration Non-Formulary Medication 20 mg 01/18/19 10:00 Vortioxetine Hydrobromide [Trintellix] PO DAILY JOS Quetiapine Fumarate 25 mg 01/17/19 22:00 01/17/19 22:12 Seroquel - PO 25 mg HS JOS Administration Impression 1. ESRD on PD 2. CAD 3. DM 4. asthma 5. hyperlipidemia 6. HTN 7. positive heb b core 8. weakness Plan - pt does PD 3 times per week - will arrange for exchange tomorrow if she stays - pt can resume PD at home - encourage PO intake - discussed sleep hygiene - pt will follow with Dr Hopkins as outpt
[2019-01-18] MEDS ORDERED: ATORVASTATIN CA 80 MG TABLET (FP) PO SCH (22:00)
== END 2019-01-18 15:34 | disposition home or self-care (01) ==
LOC: JER 13:05 → JERBED 17:03 → J4W 01-18 02:43
PROVIDERS: ATTEND Family Medicine
PROC: 3E013VG Introduction of Insulin into Subcutaneous Tissue, Percutaneous Approach (ICD-10-PCS; principal; 2019-01-17)
DX: R77.8 Other specified abnormalities of plasma proteins (principal); R53.83 Other fatigue; R53.1 Weakness; E11.22 Type 2 diabetes mellitus with diabetic chronic kidney disease; I13.2 Hypertensive heart and chronic kidney disease with heart failure and with stage 5 chronic kidney disease, or end stage renal disease; I50.22 Chronic systolic (congestive) heart failure; N18.6 End stage renal disease; Z99.2 Dependence on renal dialysis; Z79.4 Long term (current) use of insulin; I25.2 Old myocardial infarction; J45.909 Unspecified asthma, uncomplicated; F41.9 Anxiety disorder, unspecified; F32.9 Major depressive disorder, single episode, unspecified; D50.9 Iron deficiency anemia, unspecified; D69.6 Thrombocytopenia, unspecified; Z95.1 Presence of aortocoronary bypass graft; Z95.810 Presence of automatic (implantable) cardiac defibrillator; Z79.82 Long term (current) use of aspirin; Z90.710 Acquired absence of both cervix and uterus
CPT/HCPCS: 36415; 71045-TC-FY; 80053; 82550; 82607; 82728; 82746; 82962; 83540; 83550; 83735; 84100; 84443; 84484; 85025; 85610; 85730; 86850; 86900; 86901; 93005; 93010; 96372; 99285-25; G0378; J1644

== ENCOUNTER 2019-03-02 11:35 | Day surgery (SDC) | payer OTHER, BC ==
[2019-02-28 15:33] VITALS: BMI 29.3
[2019-03-02] MEDS ORDERED: PROPOFOL 20 ML ONE ×2 (12:23)
[2019-03-02 14:56] VITALS: TEMP 98
[2019-03-02 14:58] VITALS: BP 161/73; PULSE 76
== END 2019-03-02 14:50 | disposition home or self-care (01) ==
LOC: FASU-ENDO 11:35
PROVIDERS: ATTEND Internal Medicine Gastroenterology
PROC: 0DJD8ZZ Inspection of Lower Intestinal Tract, Via Natural or Artificial Opening Endoscopic (ICD-10-PCS; principal; 2019-03-02 13:58)
DX: Z12.11 Encounter for screening for malignant neoplasm of colon (principal); K64.1 Second degree hemorrhoids
CPT/HCPCS: 82962